=== PATIENT | male | born 1935 | race Caucasian/White ===

== ENCOUNTER 2018-05-05 16:30 | Inpatient (IN) ==
[2018-05-05] MEDS ORDERED: SODIUM CHLORIDE 0.9% 250 ML IV PRN ×2 (16:58→23:23)
[2018-05-05] MEDS ORDERED: SODIUM CHLORIDE 0.9% 1000ML 1,000 ML IV ONE (16:59)
[2018-05-05 17:34] LABS: INR 1.1 (0.9-1.1); Partial Thromboplastin Time 25.5 Seconds (21.0-31.0); Prothrombin Time 11.5 Seconds (9.0-12.0)
[2018-05-05] MEDS: MAGNESIUM SULFATE / D5W 1 GM/100 ML BAG IV SCH ×3 (17:54→22:45)
--- NOTE | 2018-05-05 17:58 | Emergency Department Note ---
Entered by Kalyn Herring acting as a scribe for Delano Marcano MD History of Present Illness General Chief complaint: Abnormal Labs/Diagnostic Testing Stated complaint: ANEMIA Time Seen by Provider: 05/05/18 16:57 Source: patient and family Limitations: no limitations History of Present Illness Provider complaint: abnormal labs Onset (ago): day(s) 4 Maximum Pain Intensity: 8 Associated symptoms: + denies other symptoms (swelling in legs, difficulty breathing, flu-like symptoms), + nausea/vomiting and + other (+diarrhea, + difficulties swallowing); no cough The patient is a 83 white male w/ PMHx of throat cancer, low magnesium, and low hemoglobin who presents to the ED w/ CC of abnormal labs beginning earlier in the day prior to arrival. The patient was seen by Dr. Chavez -Hematology/Oncology earlier in the day for radiation in the neck and tongue and states that Dr. Chavez then referred the patient to the ED for a transfusion. The patient states that he has difficulties swallowing and diarrhea but denies any black or bloody stool. The patient denies any flu-like symptoms, cough, difficulty breathing, or swelling in legs. The patient denies having any recent falls. Per daughter-in -law, the patient has been having memory issues, abnormal gait, pallor, vomiting , and diarrhea that began 4 days prior to arrival. Per [id number], the patient's health has seemed to decline rapidly over the past 4 days. The patient states that he has a PEG tube due to his throat cancer and a pacemaker due to heart failure. The patient denies having any ports or PICC lines. The patient denies taking any blood thinner medication. The patient states that he wears a Fentanyl patch for his pain. The patient states that he receives his chemotherapy through IV. The patient states that his cancer has metastasized to his neck lymphnodes. Home Medications Home Medications Medication Instructions Recorded Confirmed Type acetaminophen 500 mg tablet 1,000 mg PO TID PRN tab 03/10/18 05/05/18 History carvedilol 25 mg tablet 25 mg PO BID 03/10/18 05/05/18 History allopurinol 50 mg PO DAILY 03/25/18 05/05/18 History enalapril maleate 5 mg PO DAILY 03/25/18 05/05/18 History omeprazole 20 mg PO DAILY PRN 03/25/18 05/05/18 History ondansetron HCl 8 mg tablet 8 mg PO TID PRN 04/02/18 05/05/18 History polyethylene glycol 3350 17 17 gm PO DAILY PRN 04/02/18 05/05/18 History gram/dose oral powder oxycodone-acetaminophen 10 mg-325 1 tab PO Q6H PRN 04/06/18 05/05/18 History mg tablet lorazepam 0.5 mg tablet 0.5 mg PO DAILY PRN #30 tab 04/07/18 05/05/18 Rx fentanyl 50 mcg/hr transdermal 1 patch TD Q72H 04/13/18 05/05/18 History patch levothyroxine 125 mcg capsule 125 mcg PO DAILY 04/13/18 05/05/18 History Allergies Allergy/AdvReac Type Severity Reaction Status Date / Time rosuvastatin [From Crestor] AdvReac Unknown Elevated Verified 05/05/18 17:41 liver enzymes Past Med/Surg History Family History Brother Prostate CA Other No significant family history Social History marital status: Current Living Situation: Spouse current occupational status: 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; Other Information That Helps Us Care for You: No Feels Safe at Home: Yes Safety Concerns: Feels Safe At This Time Smoking Status: Former smoker Do You Dip or Chew Tobacco: No Second Hand Exposure: Yes Tobacco Cessation Education Requested by Patient: No Hx Alcohol Use: Yes Alcohol type: hard liquor Alcohol Intake Frequency: holidays/special occasions only Hx Substance Use: No Beliefs That Will Affect Care: None Preferred Language: Malay Communication Ability: Effective 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 and A total of 10 systems reviewed and were otherwise negative Physical Exam Vital Signs Vital Signs - 24 hr 05/05/18 16:48 05/05/18 17:55 05/05/18 19:01 Temperature 37.4 C 37.4 C Temperature Source Oral Oral Sepsis Recent Fever Within 48 Hours No Sepsis New/Unexplained Change in Mental Status No Sepsis Action Taken by Nursing No Action Required Pulse Rate 132 H 78 Pulse Rate [Apical] 83 Pulse Rhythm Regular Pulse Rhythm [Apical] Pulse Strength Normal Pulse Strength [Apical] Respiratory Rate 20 16 20 Respiratory Effort / Characteristics Non-Labored Spontaneous Respiratory Depth Normal Respiratory Pattern Regular Blood Pressure 141/92 H 140/80 Blood Pressure [Left Arm] 148/77 H Blood Pressure Mean 108 100 Blood Pressure Mean [Left Arm] 100 Blood Pressure Position Sitting Blood Pressure Position [Left Arm] Pulse Oximetry 95 94 92 Oxygen Delivery Method Room Air Room Air 05/05/18 19:15 05/05/18 19:45 05/05/18 20:00 Temperature 36.8 C 37.1 C Temperature Source Oral Oral Sepsis Recent Fever Within 48 Hours Sepsis New/Unexplained Change in Mental Status Sepsis Action Taken by Nursing Pulse Rate 79 79 Pulse Rate [Apical] Pulse Rhythm Pulse Rhythm [Apical] Pulse Strength Pulse Strength [Apical] Respiratory Rate 16 16 Respiratory Effort / Characteristics Respiratory Depth Respiratory Pattern Blood Pressure 138/78 139/72 Blood Pressure [Left Arm] Blood Pressure Mean 98 94 Blood Pressure Mean [Left Arm] Blood Pressure Position Blood Pressure Position [Left Arm] Pulse Oximetry 95 95 Oxygen Delivery Method Room Air 05/05/18 20:25 05/05/18 22:26 Temperature 37.4 C 36.9 C Temperature Source Oral Oral Sepsis Recent Fever Within 48 Hours Sepsis New/Unexplained Change in Mental Status Sepsis Action Taken by Nursing Pulse Rate Pulse Rate [Apical] 93 H 93 H Pulse Rhythm Pulse Rhythm [Apical] Regular Regular Pulse Strength Pulse Strength [Apical] Normal Normal Respiratory Rate 18 18 Respiratory Effort / Characteristics Non-Labored Spontaneous Respiratory Depth Normal Normal Respiratory Pattern Regular Blood Pressure Blood Pressure [Left Arm] 118/86 146/65 H Blood Pressure Mean Blood Pressure Mean [Left Arm] 96 92 Blood Pressure Position Blood Pressure Position [Left Arm] Lying Lying Pulse Oximetry 95 96 Oxygen Delivery Method Room Air Room Air GENERAL: Well appearing, well nourished, NAD, non-toxic. EYE EXAM: Normal conjunctiva. PERRL, no anisocoria and EOM's grossly intact w/o pain. OROPHARYNX: No exudate, posterior pharynx is clear, no tonsillar/uvular deviation or swelling. NECK: Supple, no nuchal rigidity, no adenopathy, non-tender. No signs of meningismus. LUNGS: Clear to auscultation bilaterally. Normal chest wall mechanics. HEART: Tachycardic, regular rhythm. ABDOMEN: Abdomen soft, non-tender, normo-active bowel sounds, no masses, no rebound or guarding, central left PEG tube insertion CDI. BACK: No CVA TTP, Fentanyl patch on right upper back. RECTAL: No bright red blood, heme negative. SKIN: No rashes and no bruising. UPPER EXTREMITIES: Upper extremities are grossly normal. LOWER EXTREMITIES: No pitting edema. No calf pain. NEURO EXAM: Awake and alert, moves all 4 extremities on command w/o issue. Course 1701: Past medical records reviewed. The patient was evaluated in room B9, and a complete history and physical examination were performed. 1750: I checked on the patient and the patient consented for a blood transfusion. 1801: I discussed the patient's [facility] who will evaluate the patient for further hospitalization. 1905: I checked on the patient and updated him and his family on his admission. Consultations Consultation #1[facility] Time: 18:02 Administered Medications Carvedilol (Coreg) 25 mg GT BID LUNA Stop: 06/04/18 20:59 Last Admin: 05/05/18 22:44 Dose: 25 mg Magnesium Sulfate/Dextrose (Magnesium Sulfate / D5w) 1 gm in 100 mls @ 100 mls/ hr IV Q1H LUNA Stop: 05/06/18 01:29 Last Admin: 05/06/18 00:20 Dose: 100 mls/hr Infusion: 05/05/18 23:45 Dose: 100 mls/hr Admin: 05/05/18 22:45 Dose: 100 mls/hr Miscellaneous (Fentanyl Patch Check Placement) 1 ea N/A QS LUNA Stop: 06/05/18 00:00 Last Admin: 05/05/18 23:32 Dose: 1 ea Morphine Sulfate (Morphine Sulfate) 4 mg IV Q4H PRN PRN Reason: Pain Stop: 05/19/18 20:48 Last Admin: 05/05/18 23:56 Dose: 4 mg Discontinued Medications Magnesium Sulfate/Dextrose (Magnesium Sulfate / D5w) 1 gm in 100 mls @ 100 mls/ hr IV Q1H LUNA Stop: 05/05/18 18:59 Last Infusion: 05/05/18 20:50 Dose: 0 mls/hr Admin: 05/05/18 18:51 Dose: 100 mls/hr Infusion: 05/05/18 18:50 Dose: 0 mls/hr Admin: 05/05/18 17:54 Dose: 100 mls/hr Sodium Chloride (Nss 1000ml) 1,000 mls @ 999 mls/hr IV .Q1H1M ONE Stop: 05/05/18 17:59 Last Admin: 05/05/18 18:51 Dose: Not Given Sodium Chloride (Nss 1000ml) 1,000 mls @ 80 mls/hr IV .[id number] LUNA Stop: 06/04/18 20:48 Last Admin: 05/05/18 23:16 Dose: Not Given Calcium Gluconate 2,000 mg/ (Sodium Chloride) 70 mls @ 240 mls/hr IV ONE ONE Stop: 05/05/18 21:32 Last Infusion: 05/05/18 23:17 Dose: 0 mls/hr Admin: 05/05/18 22:44 Dose: 240 mls/hr 2 units of pRBCs Medical Decision Making Medical Records Attestation: I reviewed the patient's medical records. Home Medications Current Medication List: was personally reviewed by me Laboratory Data Attestation: I reviewed the patient's lab results. Lab Results 05/05/18 05/05/18 05/05/18 Range/Units 17:19 17:19 18:00 PT 11.5 (9.0-12.0) Seconds INR 1.1 (0.9-1.1) APTT 25.5 (21.0-31.0) Seconds PTT Ratio 1.0 POC Stool Occult Blood Negative (Negative) Blood Type O Positive Antibody Screen NEGATIVE Crossmatch See Detail ECG Data Attestation: I personally reviewed and interpreted this ECG as follows: Indication: weakness Rate (beats per minute): 95 Rhythm: other (AV dual-paced ) Findings: + other (wide QRS) and + LBBB; no acute ischemic change Blood Pressure Blood Pressure Findings: Normal blood pressure MDM Narrative The patient is a 83 white male w/ PMHx of throat cancer, low magnesium, and low hemoglobin who presents to the ED w/ CC of abnormal labs beginning earlier in the day prior to arrival. Differential includes acute coronary syndrome, myocardial infarction, CVA, TIA, anemia, infection, pneumonia, UTI, pyelonephritis, poor nutrition, dehydration, electrolyte disturbance,hypoglycemia. Patient was seen and evaluated the bedside. The patient had been referred given a low hemoglobin. The patient is on cisplatin as IV chemotherapy and does receive radiation treatment secondary to throat cancer which they described as squamous cell carcinoma of the tongue. Patient does complain of dysphasia but no difficulty with swallowing. The patient is not stridulous. Patient is tachycardic. The patient's labs were reviewed and does show hemoglobin less than 7. Most recent was around 8. The patient does have also have significantly low magnesium. The patient did have coags, type and screen, as well as 2 units of irradiated blood products. Patient also did have IV fluids as well as magnesium ordered. Patient did have a rectal exam completed. The patient was consented for blood products. Patient did begin to receive blood. Patient was subsequently admitted to the medicine service for further evaluation and treatment. Impression & Plan Anemia, Hypomagnesemia Critical Care Time I have personally spent greater than 45 minutes of critical care time in the direct management of this patient. This includes bedside care, interpretation of diagnostic studies, and testing, discussion with consultants, patient, and family members, and other required patient management activities. This 45 minutes is in excess of all separately billable procedures. Critical Care Time: Yes Total Critical Care Time: 45 Discharge Plan Visit Data *Final* Discharge Date/Time: 05/05/18 20:00 Chief Complaint: Abnormal Labs/Diagnostic Testing Stated Complaint: ANEMIA ED Provider: Delano Marcano Discharge Problem: Anemia, Hypomagnesemia Patient Disposition: Admitted As Inpatient Discharge Instructions Interventions: ED Discharge Assessment Last Done: 05/05/18 20:00 The scribe's documentation has been prepared under my direction and personally reviewed by me in its entirety. I confirm that the note above accurately reflects all work, treatment, procedures, and medical decision making performed by me.
--- NOTE | 2018-05-05 20:11 | History & Physical Report ---
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 Guerrero and Naseem. - Consult oncology and radiation oncology - Warm saline rinses for mucositis (patient's reports Chlorsept, lidocaine gel, and other treatments all burn and are not helpful) (2) Anemia: Likely due to poor bone marrow response from cancer and chemotherapy. Hemoccult stool was negative in the ED, and patient denies any bright red blood or melenic stools. - 2 units of PRBCs order by the ED - Trend hemoglobin - Monitor volume status as patient has dilated cardiomyopathy though has never had symptoms (3) Malnutrition: Likely due to inability to fully take in tube feeds ( reports feelings of fullness or bloating before able to get in full amount), plus diarrhea from chemo. Normally, he is supposed to take 4 cans/day of NutraSource and 1oz of ProSource - No Carb; however, he can really only stomach about 1/2 to 3/4 of this before feeling too full. Has also not been getting almost any free water because of his fullness. - Replete electrolytes PRN - Residential Leasing Agent consult for tube feeding recs (4) Neutropenia: ANC on admission was 1500, so patient is not neutropenic. Likewise, patient had tempt to 37.4, so was not febrile. But given his immuno-compromised state with ongoing chemo and radiation, I recommended blood cultures, CXR, and UA. Patient declined, but agreed that if he has a fever, we will pursue an infection work-up. - Monitor temp and blood counts (5) Dysphagia: Cannot swallow most of his pills at this point, and even liquids are painful. He often chokes with any liquid. 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 - C. diff testing (7) Hypertension: Has been able to taper off his medications somewhat, likely due to some hypovolemia from his poor oral intake. BP in the ED was 140/70. He has also not been taking his enalapril as much due to trouble swallowing the pill. - Continue Coreg - Hold enalapril as he reports not taking this as often. (8) Hypothyroidism: TSH was recently checked and was suppressed, so Dr. Palomares (PCP) lowered his levothyroxine dose. Now TSH is mildly elevated, but patient admits that he cannot swallow the pill, so has not been taking it. Likely elevated for that reason. - Will continue levothyroxine 125 mcg through PEG tube (9) Congestive heart failure: Per cardiology notes from 2012, he developed dilated cardiomyopathy, possibly pacing-induced(?). However, echo from 11/2012 shows LVEF 60%, moderate LVH. I do not see any further echos in our system. Per notes, he has never had an episode of CHF. - Monitor volume status with all his blood products. (10) Complete heart block: Originally developed complete heart block in 2005 (in [place]!) and had to have pacemaker implanted there. Has had several revisions, mostly recently with Dr. Patricio in 10/2012 with a [employer] Viva Bi-V ICD. - Paced rhythm on EKG - No inpatient needs that I'm aware of (11) DVT prophylaxis: SCDs until not anemic, then consider Lovenox given his [id number] VTE risk given his maligancy History of Present Illness Primary Care Provider: Ricki Palomares MD 83yo M w/ hx of Stage IV squamous cell cancer of the base of the tongue who presents anemia and electrolyte disturbances due to chemotherapy, radiation, and poor PO intake. Per the patient and family, he has been undergoing chemotherapy and radiation with Drs. Guerrero and Naseem respectively for the two months. He was diagnosed with biopsy on 03/02/2018. He has undergone raditation and chemotherapy. Radiation is almost complete with planned completion on . I cannot see any notes from Dr. Guerrero, so I am uncertain when his chemotherapy regimen is. He and family noted that over the last few days (particularly starting on Friday ), he has appeared weaker and more pallid. He also notes more mouth pain and more dysphagia with the ongoing radiation treatment. His reports trouble with the tube feeds, in that he gets full before she can give the full amount. He reports diarrhea and generalized weakness, but denies any fevers or chills, shortness of breath, denies chest pain, denies nausea or vomiting with PEG use, denies dysuria, melena or hematochezia. Allergies Allergy/AdvReac Type Severity Reaction Status Date / Time rosuvastatin [From Crestor] AdvReac Unknown Elevated Verified 05/05/18 17:41 liver enzymes Home Medications Home Medications Medication Instructions Recorded Confirmed Type acetaminophen 500 mg tablet 1,000 mg PO TID PRN tab 03/10/18 05/05/18 History carvedilol 25 mg tablet 25 mg PO BID 03/10/18 05/05/18 History allopurinol 50 mg PO DAILY 03/25/18 05/05/18 History enalapril maleate 5 mg PO DAILY 03/25/18 05/05/18 History omeprazole 20 mg PO DAILY PRN 03/25/18 05/05/18 History ondansetron HCl 8 mg tablet 8 mg PO TID PRN 04/02/18 05/05/18 History polyethylene glycol 3350 17 17 gm PO DAILY PRN 04/02/18 05/05/18 History gram/dose oral powder oxycodone-acetaminophen 10 mg-325 1 tab PO Q6H PRN 04/06/18 05/05/18 History mg tablet lorazepam 0.5 mg tablet 0.5 mg PO DAILY PRN #30 tab 04/07/18 05/05/18 Rx fentanyl 50 mcg/hr transdermal 1 patch TD Q72H 04/13/18 05/05/18 History patch levothyroxine 125 mcg capsule 125 mcg PO DAILY 04/13/18 05/05/18 History Past Med/Surg History Medical History Squamous cell carcinoma of skin (Resolved) Umbilical hernia (Resolved) Congestive heart failure (Chronic) Diabetes 1.5, managed as type 2 (Chronic) Not on meds currently for this GERD (gastroesophageal reflux disease) (Chronic) Gout (Chronic) Heart disease (Chronic) Hypercholesteremia (Chronic) Hypertension (Chronic) Hypothyroidism (Chronic) Presence of combination internal cardiac defibrillator (ICD) and pacemaker ( Chronic) Prostate cancer (Chronic) Pt uncertain if he actually has this diagnosis; Squamous cell carcinoma of tongue (Chronic) Third degree heart block (Chronic) Surgical History H/O umbilical hernia repair (Resolved) History of cataract surgery (Resolved) S/P LASIK surgery of both eyes (Resolved) PEG (percutaneous endoscopic gastrostomy) status Inserted in 02/2018 at [facility] History of tonsillectomy (Resolved) Family History Brother Prostate CA Other No significant family history Social History marital status: Current Living Situation: Spouse 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; Feels Safe at Home: Yes Smoking Status: Former smoker Tobacco Type: cigarettes Cigarettes per Day: 1 pack per week, but then there were times he went months without smoking Second Hand Exposure: No Hx Alcohol Use: No (Quit drinking Dec 2017;10oz gin/day;) Hx Substance Use: No Beliefs That Will Affect Care: None Preferred Language: Romansh caffeine: No during the past year weight has: decreased > 10 lbs Review of Systems Constitutional: no fever, no chills and no sweats Eyes: no diplopia Ear, Nose, Mouth, Throat: + mouth lesions and + sore throat; no ear trauma, no nasal discharge and no dental pain Respiratory: no cough, no chest congestion and no dyspnea Cardiovascular: no chest pain, no dyspnea on exertion, no palpitations and no syncope Gastrointestinal: no abdominal pain, no belching, no constipation, no diarrhea/ loose stools, no blood in stools and no melena Musculoskeletal: no back pain, no joint pain and no muscle weakness Integumentary: no rash, no skin ulcer and no erythema Neurologic: no generalized weakness, no loss of sensation, no numbness and no paresthesia Psychiatric: no depression and no anxiety Endocrine: no fatigue, no polydipsia and no polyphagia Physical Exam 2 Vital Signs (Past 24 Hours): Last Vital Signs Temp 37.1 C 05/05/18 19:45 Pulse 79 05/05/18 19:45 Resp 16 05/05/18 19:45 BP 139/72 05/05/18 19:45 Pulse Ox 95 05/05/18 19:45 Constitutional: WD/WN, vitals as above Eyes: EOM intact bilaterally; no conjunctival abnormality ENMT: external ear and nose normal, oropharynx normal Neck: trachea midline, no thyromegaly normal visual inspection and + neck tender Reddened skin Respiratory: normal respiratory effort, lungs clear to auscultation no respiratory distress Cardiovascular: RRR, no murmur, no edema Gastrointestinal (Abdomen): Inspection/Auscultation: abdomen normal to inspection; abdomen not distended Musculoskeletal: no cyanosis or clubbing, extremities motor strength 5/5 Skin: no rashes, warm and dry Neurologic: moves all extremities and awake Psychiatric: Orientation: alert, oriented to person and cooperative
[2018-05-05] MEDS ORDERED: LORazepam 0.5 MG TAB PO PRN (20:49)
[2018-05-05] MEDS ORDERED: ACETAMINOPHEN 1,000 MG/100 ML VIAL IV PRN (20:49)
[2018-05-05] MEDS ORDERED: MoRPHine SULFATE 4 MG/ML 1 ML CARP\\VIAL IV PRN (20:49)
[2018-05-05] MEDS ORDERED: SODIUM CHLORIDE 0.9% 1000ML 1,000 ML IV SCH (20:49)
[2018-05-05] MEDS ORDERED: fentaNYL 50 MCG/HR TDSY TD SCH (21:00)
[2018-05-05] MEDS ORDERED: CALCIUM GLUCONATE 10% 2,000 MG in SODIUM CHLORIDE 0.9% 50 ML IV ONE (21:15)
[2018-05-05] MEDS: CARVEDILOL 25 MG TAB GT SCH (22:44)
[2018-05-05] MEDS: CHECK FENTANYL PATCH PLACEMENT SCH (23:32)
[2018-05-06] MEDS: MAGNESIUM SULFATE / D5W 1 GM/100 ML BAG IV SCH ×3 (00:20→02:22)
[2018-05-06] MEDS: LEVOTHYROXINE SODIUM 125 MCG TABLET PO SCH (06:18)
[2018-05-06] MEDS: RANITIDINE HCL SYRUP 150 MG/10 ML UDC GT SCH (07:56)
[2018-05-06] MEDS: CARVEDILOL 25 MG TAB GT SCH ×2 (07:56→19:30)
[2018-05-06 07:58] LABS: Hematocrit (blood only) 22.6 % (42-52); Hemoglobin 7.8 g/dL (14.0-18.0); Mean Corpuscular Hgb Conc 34.5 g/dL (32-36); Mean Corpuscular Volume 88.3 fL (80-100); RDW Coefficient of Variation 14.8 % (11.5-14.5); RDW Standard Deviation 46.1 fL (36.4-46.3); Red Blood Count 2.56 M/uL (4.7-6.1); White Blood Count 1.84 K/uL (4.8-10.8)
[2018-05-06] MEDS: CHECK FENTANYL PATCH PLACEMENT SCH ×2 (07:58→17:51)
--- NOTE | 2018-05-06 08:08 | Radiation Oncology Progress Nt ---
Date of Service May 06, 2018 Assessment & Plan (1) Head and neck cancer: Assessment: Mr. Lyles is an 83-year-old gentleman who presents with locally advanced head and neck cancer who is currently undergoing treatment with chemotherapy and radiation therapy. He has completed 27 of 33 fractions of radiation therapy. He is also currently receiving chemotherapy underneath the supervision of Dr. Robin Guerrero. Unfortunately, the patient has had difficulty tolerating radiation therapy and chemotherapy and has developed dehydration and anemia and malnutrition and the patient was admitted to the hospital for further care due to his acute state. We have been asked to evaluate the patient regarding continuation of radiation therapy. Plan/Recommendations: I discussed the case with the primary hospital team. We agreed to hold the patient for radiation therapy tomorrow and bring him down tomorrow for treatment assuming his overall status improves. I will defer chemotherapy recommendations to medical oncology. With respect to his dysphagia, I would recommend continuation of pain management with pain medications via feeding tube/IV access. Magic mouthwash may also be considered to help the patient with dysphagia as well as Carafate. Continue to use Aquaphor daily patient's neck bilaterally to help keep the skin moisturized. Please call our department for any further questions or concerns regarding radiation oncology side effect management. Please call us with any further questions or concerns. Supervising Physician Co-Signing Physician Notes I spent 30 minutes for this consultation, which included obtaining clinical information, performing a physical exam, recommending a plan of action and answering questions. Greater than 50% of the time spent was direct face to face interaction with the patient. Subjective Mr. Lyles is a 83-year-old gentleman that is well-known to our service. He is currently undergoing chemotherapy and radiation therapy for head and neck cancer. He has received 27 fractions out of a planned 33 fractions. He is also receiving concurrent cisplatin chemotherapy underneath the supervision of Dr. Robin Guerrero. Yesterday, the patient was doing poorly and was having difficulty with weakness and poor oral intake. The patient did undergo radiation therapy and then was evaluated by medical oncology and the recommendation was to send the patient to the emergency department. The patient did have blood work including a CBC which revealed leukopenia and anemia. Since admission, the patient has received IV hydration is also had 2 units of packed red blood cells transfused in the emergency room. We have been asked to evaluate the patient regarding radiation therapy. Currently, the patient continues to still suffer from overall fatigue and weakness. He also complains of dysphagia and odynophagia. He currently is on a fentanyl patch and also has been taking Percocet 10/325 mg PO every 6 hours as needed for pain. Physical Exam 2 Vital Signs (Past 24 Hours): Last Vital Signs Temp 36.9 C 05/06/18 02:55 Pulse 70 05/06/18 02:55 Resp 18 05/06/18 02:55 BP 128/60 05/06/18 02:55 Pulse Ox 95 05/06/18 02:55 Constitutional: + ill appearing and + disheveled Eyes: PERRL, conjunctivae normal, anicteric sclerae ENMT: external ear and nose normal, oropharynx normal Neck: Dry desquamation noted bilaterally. Psychiatric: A+Ox3, euthymic affect
[2018-05-06 08:24] LABS: Dohle Bodies 1+; Immature Granulocytes # (auto) 0.01 K/uL (0.00-0.02); Immature Granulocytes % (auto) 0.5 %; Lymphocytes # (auto) 0.28 K/uL (1.2-3.4); Lymphocytes % (auto) 15.2 %; Monocytes # (auto) 0.19 K/uL (0.11-0.59); Monocytes % (auto) 10.3 %; Neutrophils # (auto) 1.36 K/uL (1.4-6.5); Platelet Count 94 K/uL (130-400); Toxic Granulation 1+
[2018-05-06 08:37] LABS: BUN Creatinine Ratio 35.7 (10-20); Calcium 6.9 mg/dl (8.5-10.1); Creatinine Clr Calc Pharmacy 68.7 ml/min; Est GFR (African American) 77.7; Magnesium 1.8 mg/dl (1.8-2.4); Phosphorus 3.3 mg/dl (2.5-4.9); Potassium 3.9 mmol/L (3.5-5.1)
[2018-05-06] MEDS ORDERED: SODIUM CHLORIDE 0.9% 250 ML IV PRN (11:36)
[2018-05-06] MEDS ORDERED: Nursing to Pharmacy Communication ONE (15:14)
--- NOTE | 2018-05-06 15:27 | Hospitalist Progress Note ---
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 Guerrero and Dr. Gusman - Planning on continuing radiation therapy today - only approx 7 more sessions planned - Only one chemotherapy session left - May continues warm saline rinses for his mucositis - reports this is about the only thing that does not burn - can consider Carafate rinses to see if that may help and patient would like to consider this -- Have tried Magic mouthwash in the past and chloraseptic but this gave a burning sensation) - Can continue to adjust pain regimen - continue Fentanyl 50 mcg Q72H (possibly can increase this dose and can discuss); Morphine IV PRN - Consult oncology and radiation oncology - did discuss with Dr. Gusman this morning and plan to continue radiation today Present on Admission?: Yes (2) Anemia: - Pancytopenia likely due to bone marrow suppression related to cancer/ chemo - Stool negative for blood in the ED and no reports of melena/BRBPR - no active signs of bleeding - Transfused 2 units PRBCs and will transfuse an additional 2 units this afternoon - Baseline around 9-11 but has had a gradual decline since initiation of cancer treatment which is to be expected - does have weekly labs prior to his chemotherapy regimen - Continue to monitor H&H and monitor fluid status given H/O dilated cardiomyopathy Present on Admission?: Yes (3) Malnutrition: - Due to inability to fully tolerate tube feeds (fullness/bloating/early satiety) - Current regimen is Nutren 2.0 with 350 mL BID with 1 oz nocarb prosource - bolus in AM prior to radiation then again around 1500 and also has 90 mL free water flushes x 5 daily - Monitor labs and replete electrolytes PRN - Cant Hooker consulted - discussed with Felicitas - plan to continue home feeds but consideration for night feeds to reduce boluses and may help with early satiety. Can also consider Reglan to help with motility and will rediscuss with patient and family Present on Admission?: Yes (4) Neutropenia: - ANC on admission was 1500 and currently at 1360 and will monitor closely - he is immunocompromised due to chemo/radiation and remains afebrile - Currently no signs of infection but if would become febrile will pursue further infectious work-up Present on Admission?: Yes (5) Dysphagia: - Ongoing issue that has worsened more specifically on Friday - difficulty with pills and liquids - States he feels a lot of regurgitation when he swallows anything - [facility] evaluation - evaluation was discussed between [facility] and Dr. Grimaldo - recommendations for remaining NPO until completing radiation therapy and to pursue video swallow before adding oral intake; can continue sips and chips as tolerated Present on Admission?: Yes (6) Diarrhea: - Has been consistent while undergoing chemotherapy - Can R/O C. diff if continues and could consider further stool studies however likely due to chemotherapy and maybe some related to his tube feedings Present on Admission?: Yes (7) Hypertension: - Has tapered off some medications - having intermittent highs which some could be pain response - Doesn't always take his Enalapril due to swallowing issues - Will continue Carvedilol 25 mg BID and holding Enalapril Present on Admission?: Yes (8) Hypothyroidism: - TSH was previously suppressed and his Synthroid was reduced - now TSH is elevated but admits to not always taking due to his swallowing difficulty and likely the reason for elevations - Will continue home dose of Levothyroxine 125 mcg daily through PEG Present on Admission?: Yes (9) Congestive heart failure: - Notes from 2013 with dilated cardiomyopathy - possibly pacer-induced? - Echo (2013) - EF 60%; moderate LVH - Denies having issues with fluid retention or CHF exacerbations; will monitor volume status Present on Admission?: Yes (10) Complete heart block: - Initially diagnosed in 2005 - had a pacer placed in [facility] and since had revisions (last with Dr. Contreras in 2012) has a [employer] Viva Bi-V ICD - Remains paced on monitor Present on Admission?: Yes (11) DVT prophylaxis: Will continue SCDs today; Will reassess labs in AM as he is thrombocytopenic and getting further blood and can consider Lovenox - no active source of bleeding at this time Disposition: Await clinical improvement and laboratory stabilization Subjective Reports that he is feeling ok. Biggest issue is pain of the mouth especially with swallowing. Had a long discussion about possible implementation of Reglan to help with motility as well as may be trying some Carafate that could be swished in the mouth to help with the mucositis. His energy levels are slightly improved since admission. He is currently receiving another 2 units of PRBCs. Patient would like to go ahead and continue his radiation therapy today. At this current time we will continue his current home tube feedings. He was seen and evaluated by [facility] who recommend strict n.p.o. at this time. Recommendations to consider overnight feeds to help reduce bolus feeding and early satiety. Constitutional: + fatigue; no fever and no chills Eyes: no worsening vision Ear, Nose, Mouth, Throat: + mouth lesions, + sore throat, + hoarseness, + dysphagia and + pain with swallowing Respiratory: no cough and no dyspnea Cardiovascular: no chest pain, no palpitations, no lightheadedness and no edema Gastrointestinal: + bloating, + early satiety and + diarrhea/loose stools; no abdominal pain, no nausea, no vomiting, no change in bowel habits, no constipation, no blood in stools and no melena Genitourinary (Male): no dysuria Integumentary: no rash Physical Exam 2 Vital Signs (Past 24 Hours): Last Vital Signs Temp 36.9 C 05/06/18 15:15 Pulse 74 05/06/18 15:15 Resp 16 05/06/18 15:15 BP 151/80 H 05/06/18 15:15 Pulse Ox 96 05/06/18 15:15 Constitutional: well developed, well nourished and + ill appearing Eyes: + anicteric sclerae ENMT: Ears: no hearing impairment Mouth: + oral mucosal abnormality ( petechial-like spots of posterior pharynx with small ulcer-like lesions of tongue so current signs of thrush) Throat: uvula midline Neck: trachea midline Respiratory: normal respiratory effort, lungs clear to auscultation Cardiovascular: Rate/Rhythm: regular rate and regular rhythm Gastrointestinal (Abdomen): Inspection/Auscultation: normal bowel sounds Percussion/Palpation: abdomen soft; abdomen nontender Musculoskeletal: Head/Neck/Chest: normocephalic, head atraumatic and neck supple Skin: no rashes, warm and dry Neurologic: moves all extremities Psychiatric: A+Ox3, euthymic affect
[2018-05-06] MEDS ORDERED: SUCRALFATE 1 GM/10 ML UDC PO PRN (16:19)
[2018-05-06] MEDS: [UNRECOGNIZED DRUG - REMARK] PO SCH (17:51)
[2018-05-06] MEDS: ONDANSETRON INJ 2 MG/ML 2 ML VIAL IV PRN (18:16)
[2018-05-07] MEDS: CHECK FENTANYL PATCH PLACEMENT SCH ×3 (00:17→15:55)
[2018-05-07] MEDS: LEVOTHYROXINE SODIUM 125 MCG TABLET PO SCH (06:13)
[2018-05-07] MEDS: ONDANSETRON INJ 2 MG/ML 2 ML VIAL IV PRN (07:59)
[2018-05-07] MEDS: RANITIDINE HCL SYRUP 150 MG/10 ML UDC GT SCH (09:27)
[2018-05-07] MEDS: CARVEDILOL 25 MG TAB GT SCH (09:27)
[2018-05-07 10:22] LABS: Hematocrit (blood only) 27.4 % (42-52); Hemoglobin 9.4 g/dL (14.0-18.0); Mean Corpuscular Hgb Conc 34.3 g/dL (32-36); Mean Corpuscular Volume 88.7 fL (80-100); RDW Coefficient of Variation 14.8 % (11.5-14.5); RDW Standard Deviation 46.5 fL (36.4-46.3); Red Blood Count 3.09 M/uL (4.7-6.1); White Blood Count 1.66 K/uL (4.8-10.8)
[2018-05-07 10:30] LABS: Mean Platelet Volume 9.1 fL (7.4-10.4); Platelet Count 91 K/uL (130-400)
[2018-05-07 10:49] LABS: Dohle Bodies 1+; Eosinophils # (auto) 0.01 K/uL (0-0.5); Eosinophils % (auto) 0.6 %; Immature Granulocytes # (auto) 0.01 K/uL (0.00-0.02); Immature Granulocytes % (auto) 0.6 %; Monocytes # (auto) 0.26 K/uL (0.11-0.59); Monocytes % (auto) 15.7 %; Neutrophils # (auto) 1.18 K/uL (1.4-6.5); Neutrophils % (auto) 71.1 %; Toxic Granulation 1+
[2018-05-07] MEDS ORDERED: fentaNYL 50 MCG/HR TDSY TD SCH (11:00)
[2018-05-07 11:04] LABS: BUN Creatinine Ratio 34.3 (10-20); Calcium 7.1 mg/dl (8.5-10.1); Creatinine Clr Calc Pharmacy 69.7 ml/min; Est GFR (African American) 78.6; Est GFR (Non-African American) 67.8; Magnesium 1.1 mg/dl (1.8-2.4); Potassium 3.5 mmol/L (3.5-5.1)
[2018-05-07] MEDS: [UNRECOGNIZED DRUG - REMARK] PO SCH (12:08)
[2018-05-07] MEDS: MAGNESIUM SULFATE / D5W 1 GM/100 ML BAG IV SCH ×2 (13:16→14:25)
[2018-05-07 14:30] LABS: Hematocrit (blood only) 26.8 % (42-52); Mean Corpuscular Hgb Conc 33.6 g/dL (32-36); Mean Corpuscular Volume 90.2 fL (80-100); RDW Coefficient of Variation 14.9 % (11.5-14.5); RDW Standard Deviation 48.3 fL (36.4-46.3); Red Blood Count 2.97 M/uL (4.7-6.1); White Blood Count 1.59 K/uL (4.8-10.8)
[2018-05-07 14:43] LABS: Mean Platelet Volume 9.1 fL (7.4-10.4); Platelet Count 87 K/uL (130-400)
[2018-05-07 14:46] LABS: BUN Creatinine Ratio 34.3 (10-20); Calcium 6.9 mg/dl (8.5-10.1); Creatinine Clr Calc Pharmacy 68.4 ml/min; Est GFR (African American) 76.8; Est GFR (Non-African American) 66.3; Magnesium 1.2 mg/dl (1.8-2.4); Potassium 3.5 mmol/L (3.5-5.1)
[2018-05-07 15:25] VITALS: PULSE 88; TEMP 98.1; O2SAT 97
--- NOTE | 2018-05-07 15:41 | Oncology Consultation ---
Date of Consultation May 07, 2018 Assessment & Plan (1) Head and neck cancer: Mr. Lyles has been struggling at home. Most of his symptoms are from usual toxicities of concurrent chemoradiation for head and neck cancers, exacerbated by his pre-treatment weight loss related to his tumor symptoms. He is not tolerating tube feeds well and I might consider nutrition evaluation to discuss changes in his feeds, such as continuous overnight feeds. He will likely get a bit worse before he starts to improve, so finding a way to get him more reliable nutrition is critical for the next few weeks to months. We will also likely continue with frequent hydration visits in the clinic until he starts getting stronger. Present on Admission?: Yes History of Present Illness Attending Physician: Henry Grimaldo, DO History of Present Illness Mr. Lyles is an 83 year old man with a history of complete heart block and a base of tongue squamous cell carcinoma. He came to attention in January with difficulty swallowing and a 35 lb weight loss. Imaging revealed a large FDG- avid mass at the base of his tongue, along with bilateral avid cervical lymph nodes. He underwent a biopsy 02/18/18 that revealed a poorly differentiated squamous cell caricnoma. He had a PEG tube placed and began definitive-intent concurrent chemoradiation with weekly cisplatin on 03/25/18. Since that time, he has experienced severe dysphagia and poor oral intake. He has lost around 12 lb from his pre-treatment weight. He has also been getting supplemental hydration weekly with chemo, plus another time per week. In the last week, he has required three visits for hydration. Dr. Guerrero saw him briefly on the day of admission, where he looked generally ill and very weak. He was found to be profoundly hypomagnesemic and dehydrated and was admitted to [facility]. He has not been keeping up with his tube feeds. His prescribed regimen is 5 cans per day, but he has only tolerated 2. He gets bloated and uncomfortable when he takes the feeds and has trouble lying down. He felt better after some IV hydration and magnesium repletion. He is due to finish his radiation this week. Allergies Allergy/AdvReac Type Severity Reaction Status Date / Time rosuvastatin [From Crestor] AdvReac Unknown Elevated Verified 05/05/18 17:41 liver enzymes Home Medications Home Medications Medication Instructions Recorded Confirmed Type acetaminophen 500 mg tablet 1,000 mg PO TID PRN tab 03/10/18 05/05/18 History carvedilol 25 mg tablet 25 mg PO BID 03/10/18 05/05/18 History allopurinol 50 mg PO DAILY 03/25/18 05/05/18 History enalapril maleate 5 mg PO DAILY 03/25/18 05/05/18 History omeprazole 20 mg PO DAILY PRN 03/25/18 05/05/18 History ondansetron HCl 8 mg tablet 8 mg PO TID PRN 04/02/18 05/05/18 History polyethylene glycol 3350 17 17 gm PO DAILY PRN 04/02/18 05/05/18 History gram/dose oral powder oxycodone-acetaminophen 10 mg-325 1 tab PO Q6H PRN 04/06/18 05/05/18 History mg tablet lorazepam 0.5 mg tablet 0.5 mg PO DAILY PRN #30 tab 04/07/18 05/05/18 Rx fentanyl 50 mcg/hr transdermal 1 patch TD Q72H 04/13/18 05/05/18 History patch levothyroxine 125 mcg capsule 125 mcg PO DAILY 04/13/18 05/05/18 History Patient History Medical History Squamous cell carcinoma of skin (Resolved) Umbilical hernia (Resolved) Congestive heart failure (Chronic) Diabetes 1.5, managed as type 2 (Chronic) Not on meds currently for this GERD (gastroesophageal reflux disease) (Chronic) Gout (Chronic) Heart disease (Chronic) Hypercholesteremia (Chronic) Hypertension (Chronic) Hypothyroidism (Chronic) Presence of combination internal cardiac defibrillator (ICD) and pacemaker ( Chronic) Prostate cancer (Chronic) Pt uncertain if he actually has this diagnosis; Squamous cell carcinoma of tongue (Chronic) Third degree heart block (Chronic) Surgical History H/O umbilical hernia repair (Resolved) History of cataract surgery (Resolved) S/P LASIK surgery of both eyes (Resolved) PEG (percutaneous endoscopic gastrostomy) status Inserted in 02/2018 at [facility] History of tonsillectomy (Resolved) Family History Brother Prostate CA Other No significant family history Social History marital status: Current Living Situation: Spouse current occupational status: retired current occupation: [employer]; Other Information That Helps Us Care for You: No Feels Safe at Home: Yes Safety Concerns: Feels Safe At This Time Smoking Status: Former smoker Do You Dip or Chew Tobacco: No Second Hand Exposure: Yes Tobacco Cessation Education Requested by Patient: No Hx Alcohol Use: Yes Alcohol type: hard liquor Alcohol Intake Frequency: holidays/special occasions only Hx Substance Use: No Beliefs That Will Affect Care: None Communication Ability: Effective caffeine: No during the past year weight has: decreased > 10 lbs Review of Systems Constitutional: + fatigue, + weakness and + weight loss Ear, Nose, Mouth, Throat: as per Subjective / HPI Respiratory: no cough and no dyspnea Cardiovascular: no chest pain and no dyspnea on exertion Gastrointestinal: + nausea and + dysphagia; no diarrhea/loose stools Neurologic: no localized weakness and no headache(s) Hematologic / Lymphatic: no easy bleeding and no night sweats Physical Exam 2 Vital Signs (Past 24 Hours): Last Vital Signs Temp 36.7 C 05/07/18 15:24 Pulse 88 05/07/18 15:24 Resp 16 05/07/18 15:24 BP 143/71 H 05/07/18 15:24 Pulse Ox 97 05/07/18 15:24 Constitutional: + ill appearing and comfortable; no acute distress Eyes: + anicteric sclerae and EOM intact bilaterally Neck: Changes in his skin consistent with his current radiation therapy Respiratory: normal respiratory effort, lungs clear to auscultation Cardiovascular: RRR, no murmur, no edema Gastrointestinal (Abdomen): normal bowel sounds, soft, nontender, no hepatosplenomegaly Lymphatic: no cervical or axillary lymphadenopathy Results & Data Laboratory Results Abnormal lab results 05/05/18 05/06/18 05/07/18 Range/Units 17:19 16:26 07:10 WBC (4.8-10.8) K/uL RBC (4.7-6.1) M/uL Hgb (14.0-18.0) g/dL Hct (42-52) % RDW Std Deviation (36.4-46.3) fL RDW Coeff of Tonia (11.5-14.5) % Plt Count (130-400) K/uL Neut # (Auto) (1.4-6.5) K/uL Lymph # (Auto) (1.2-3.4) K/uL BUN (7-18) mg/dl BUN/Creatinine Ratio (10-20) Glucose (70-99) mg/dl POC Glucose 167 H 106 H (70-99) Calcium (8.5-10.1) mg/dl Magnesium (1.8-2.4) mg/dl Crossmatch See Detail 05/07/18 05/07/18 05/07/18 Range/Units 10:06 10:06 11:31 WBC 1.66 L (4.8-10.8) K/uL RBC 3.09 L (4.7-6.1) M/uL Hgb 9.4 L (14.0-18.0) g/dL Hct 27.4 L (42-52) % RDW Std Deviation 46.5 H (36.4-46.3) fL RDW Coeff of Tonia 14.8 H (11.5-14.5) % Plt Count 91 L (130-400) K/uL Neut # (Auto) 1.18 L (1.4-6.5) K/uL Lymph # (Auto) 0.20 L (1.2-3.4) K/uL BUN 35 H (7-18) mg/dl BUN/Creatinine Ratio 34.3 H (10-20) Glucose 109 H (70-99) mg/dl POC Glucose 144 H (70-99) Calcium 7.1 L (8.5-10.1) mg/dl Magnesium 1.1 L (1.8-2.4) mg/dl Crossmatch 05/07/18 05/07/18 Range/Units 13:55 13:55 WBC 1.59 L (4.8-10.8) K/uL RBC 2.97 L (4.7-6.1) M/uL Hgb 9.0 L (14.0-18.0) g/dL Hct 26.8 L (42-52) % RDW Std Deviation 48.3 H (36.4-46.3) fL RDW Coeff of Tonia 14.9 H (11.5-14.5) % Plt Count 87 L (130-400) K/uL Neut # (Auto) (1.4-6.5) K/uL Lymph # (Auto) (1.2-3.4) K/uL BUN 36 H (7-18) mg/dl BUN/Creatinine Ratio 34.3 H (10-20) Glucose 129 H (70-99) mg/dl POC Glucose (70-99) Calcium 6.9 L (8.5-10.1) mg/dl Magnesium 1.2 L (1.8-2.4) mg/dl Crossmatch
[2018-05-07 16:08] VITALS: BP 152/75
[2018-05-07] MEDS ORDERED: METOCLOPRAMIDE HCL 10 MG TABLET PO SCH (16:45)
--- NOTE | 2018-05-07 19:22 | Discharge Summary ---
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 Per the patient and family, he has been undergoing chemotherapy and radiation with Drs. Guerrero and Naseem respectively for the two months. He was diagnosed with biopsy on 03/02/2018. He has undergone raditation and chemotherapy. Radiation is almost complete with planned completion on . I cannot see any notes from Dr. Guerrero, so I am uncertain when his chemotherapy regimen is. He and family noted that over the last few days (particularly starting on Friday ), he has appeared weaker and more pallid. He also notes more mouth pain and more dysphagia with the ongoing radiation treatment. His reports trouble with the tube feeds, in that he gets full before she can give the full amount. He reports diarrhea and generalized weakness, but denies any fevers or chills, shortness of breath, denies chest pain, denies nausea or vomiting with PEG use, denies dysuria, melena or hematochezia. Principal Diagnosis Chemotherapy Induced Pancytopenia Discharge Exam Constitutional well developed, well nourished and + ill appearing Eyes + anicteric sclerae ENMT Ears: no hearing impairment Mouth: + oral mucosal abnormality (petechial-like spots of posterior pharynx with small ulcer-like lesions of tongue so current signs of thrush) Throat: uvula midline Neck trachea midline Respiratory normal respiratory effort, lungs clear to auscultation Cardiovascular Rate/Rhythm: regular rate and regular rhythm Gastrointestinal (Abdomen) Inspection/Auscultation: normal bowel sounds Percussion/Palpation: abdomen soft; abdomen nontender Musculoskeletal Head/Neck/Chest: normocephalic, head atraumatic and neck supple Skin no rashes, warm and dry Neurologic moves all extremities Psychiatric A+Ox3, euthymic affect Discharge Data Allergies Allergy/AdvReac Type Severity Reaction Status Date / Time rosuvastatin [From Crestor] AdvReac Unknown Elevated Verified 05/05/18 17:41 liver enzymes Consultations 05/05/18 17:58 ED Decision to Admit Stat 05/05/18 20:49 Consult Oncology Routine Consult Radiation Oncology Routine Hospital Course (1) Squamous cell carcinoma of tongue: - Active treatment with chemotherapy/radiation for Stage IV squamous cell carcinoma of the posterior tongue - follows with Dr. Guerrero and Dr. Gusman - Continued radiation therapy in-house - has approx. 4 more sessions - Only one chemotherapy session left - May continues warm saline rinses for his mucositis; trial of carafate PRN but patient states this does burn slightly as well - Continue F/U with Dr. Gusman and Dr. Chavez (2) Anemia: - Pancytopenia likely due to bone marrow suppression related to cancer/ chemo; slightly neutropenic with counts at 1.1 - Stool negative for blood in the ED and no reports of melena/BRBPR - no active signs of bleeding - Transfused 4 units PRBCs and Hgb stable around 9 - Baseline around 9-11 but has had a gradual decline since initiation of cancer treatment which is to be expected - does have weekly labs prior to his chemotherapy regimen and provided Rx for repeat testing (3) Malnutrition: - Due to inability to fully tolerate tube feeds (fullness/bloating/early satiety) - Current regimen is Nutren 2.0 with 350 mL BID with 1 oz nocarb prosource - bolus in AM prior to radiation then again around 1500 and also has 90 mL free water flushes x 5 daily - Will remain completely NPO until cleared by video swallow but with discussion with patient and family the plan will be to continue feeds as is until completely radiation as this impacts their time. After radiation complete can do more frequent feeds of smaller amounts to allow easier tolerability. Patient expresses he finally has been sleeping well at night and would like to avoid night feeds and will respect that - Advised of the recommendations to have the goal of 1000 mL a day of feeds and 1100 mL if possible - Trial of Reglan 10 mg 15-20 minutes prior to bolus feeds to see if this assists with motility (4) Neutropenia: - ANC on admission was 1500 and currently at 1100 and will monitor closely - he is immunocompromised due to chemo/radiation and remains afebrile - Currently no signs of infection (5) Dysphagia: - Ongoing issue that has worsened more specifically on Friday - difficulty with pills and liquids - States he feels a lot of regurgitation when he swallows anything - 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 -- recommendations for remaining NPO until completing radiation therapy and to pursue video swallow before adding oral intake; can continue sips and chips as tolerated (6) Diarrhea: - Has been consistent while undergoing chemotherapy (7) Hypertension: - Has tapered off some medications - having intermittent highs which some could be pain response - Doesn't always take his Enalapril due to swallowing issues - Continue Carvedilol 25 mg BID and Enalapril 5 mg daily through feeding tube (8) Hypothyroidism: - TSH was previously suppressed and his Synthroid was reduced - now TSH is elevated but admits to not always taking due to his swallowing difficulty and likely the reason for elevations - Will continue home dose of Levothyroxine 125 mcg daily through PEG (9) Congestive heart failure: - Notes from 2013 with dilated cardiomyopathy - possibly pacer-induced? - Echo (2013) - EF 60%; moderate LVH - Denies having issues with fluid retention or CHF exacerbations (10) Complete heart block: - Initially diagnosed in 2005 - had a pacer placed in [facility] and since had revisions (last with Dr. Contreras in 2012) has a [employer] Bi-V ICD - Remains paced on monitor Total Time Total Time Spent Total Time Spent (In Minutes): Greater than 30 minutes Discharge Plan Discharge Items Patient Disposition: Home - Home Health Services Reason For Visit: ANEMIA,LOW ELECTROLYTES Discharge Diagnosis: Anemia due to Chemotherapy Discharge Goals: Decrease discomfort, Improve nutritional status and Prevent disease Activity: Resume your previous activity Non-emergency contact: Primary Care Provider Call non-emergency contact if: you have any medication questions, your symptoms worsen and you have a fever Diet: Nothing by mouth Addtl Provider Instructions: Oral Cancer: - Please continue your radiation treatments as previously arranged to complete your remaining treatments - Would recommend calling Dr. Chavez's office to see when he would like to follow- up with you in regards to your last chemotherapy. It is common when blood counts are lower to hold this type of treatment temporarily. - Will give you a prescription for blood work to get on 05/08 and again on 05/11 that can also be sent to Dr. Chavez to help guide when your last treatment can be given. - Continue the warm saline rinses as this seems to help the most. Can give a prescription for the oral carafate to use but it seems like this burned some too so you can disregard this if not tolerated. Sometimes insurances will not cover the liquid form just to make you aware but can possibly get an authorization for it and your family doctor can help with that. - Continue your Fentanyl patch as previously prescribed and can be adjusted per recommendations of your oncologist. Anemia: - You have a pancytopenia which means your white blood cells, hemoglobin, and platelets (clotting factor) is low which is very common with chemotherapy. - It seems since you started your treatments your counts have come down which is normal as these medications can cause some bone marrow suppression. - As you finish treatment, the counts will start to improve. - Your family doctor discussed some medicines that can stimulate your blood counts (Procrit for your red blood cells and Neulasta for your white blood cells ) -- Did discuss with the solar installation foreman dry wall installations mechanic/oncologist that this medications are not indicated at this time but would recommend to discuss with your oncologist as it may be beneficial with your next treatment. - Sometimes with chemotherapy we do see each treatment causing a little bit more effects on the blood counts like you experienced this time. This is sometime due to an accumulation effect. This may mean we need to wait a little longer than normal to do the next dose but your oncologist can weigh in on this more - The repeat blood work hopefully will show your blood counts improving. There is a chance the counts can still drop and may need more blood products but right now your counts are remaining stable on repeat labs. -- We do no see signs of active bleeding and your stool did not show blood which is great. However, always recommend to watch for black colored stool or bright red blood. - Your neutrophils are dropping some too. We like to see these about 1.4 which you are at 1.1 right now. With this we would just recommend to keep those that are sick away for a little while and avoid eating anything raw or undercooked. Neutrophils are important for fighting off infections so we do want to see this come up as well. This will be checked with the lab script we will give. Nutrition: - We have a few recommendations in regards to how to improve this. Hopefully as your treatments end and we can get you back to eating regularly this will help - For now, recommend to continue to do you feeds as you have been doing. If days allow you could do small boluses more frequently in the day to help reduce bloating and early satiety. - We will give a prescription for Reglan. This is actually a nausea medication that we use for people who have gastric slowing as it can help promote motility. - Recommend to take Reglan 10 mg 15-20 minutes before your bolus feeds and a dose prior to bed. We can do this as a trial and see if it works. If not this can be stopped - As you finish your radiation and chemotherapy these are some further recommendations given. For now the recommendation is NOTHING BY MOUTH due to the regurgitation and irritation you are having. Our speech language pathologist is recommending to have a formal video swallow before resuming normal feeding. Your family doctor can help arrange this. In the meantime can use some ice chips or little sips of water - NUTRITION GOALS -- Work towards 333 mL three times a day and continue the prosource. This will give approximately 95% of goal caloric and nutritional intake -- If you can get up to 1100 mL that would be even better -- Especially if days allow, have smaller more frequent feeds may help with tolerance Medications: - We did review your medications and unfortunately only a couple have a liquid option but most are off the market for use. - However, the Reglan does come in a liquid. Zantac comes in a syrup as well which can be used alone or with omeprazole. Sometimes scheduling acid reflux medications can help but may use this as needed if you would prefer Hypothyroid: - Your thyroid hormone is high which means that your thyroid is underactive but this is likely due to not being able to take the synthroid due to swallowing - Did not make any dosing adjustments to this but would recommend repeat thyroid check in about 6 weeks to see if further medication dosings need made Prescriptions: New metoclopramide HCl 5 mg/5 mL solution 10 mg Feeding Tube DIRECTED 14 Days Qty: 420 RF: 0 ranitidine HCl 15 mg/mL Syrup 150 mg G-Tube QAM 30 Days Qty: 300 RF: 0 sucralfate 100 mg/mL suspension 10 ml PO QID PRN (Reason: Mouth Sores) 5 Days Qty: 200 RF: 0 Continue carvedilol 25 mg tablet 25 mg PO BID RF: 0 acetaminophen [Tylenol Extra Strength] 500 mg tablet 1,000 mg PO TID PRN (Reason: pain) RF: 0 ondansetron HCl [Zofran] 8 mg tablet 8 mg PO TID PRN (Reason: Nausea And Vomiting) RF: 0 polyethylene glycol 3350 [Miralax] 17 gram/dose powder 17 gm PO DAILY PRN (Reason: constipation) RF: 0 oxycodone-acetaminophen [Percocet] 10-325 mg tablet 1 tab PO Q6H PRN (Reason: Pain) RF: 0 levothyroxine 125 mcg capsule 125 mcg PO DAILY RF: 0 lorazepam 0.5 mg tablet 0.5 mg PO DAILY PRN (Reason: anxiety) Qty: 30 RF: 0 enalapril maleate 5 mg Tablet 5 mg PO DAILY RF: 0 allopurinol 100 mg Tablet 50 mg PO DAILY RF: 0 omeprazole 20 mg Tablet,Delayed Release (Dr/Ec) 20 mg PO DAILY PRN (Reason: Indigestion) RF: 0 Changed fentanyl [Duragesic] 50 mcg/hr patch 72 hour 1 patch TD Q48H Qty: 0 RF: 0 Stand-Alone Forms: [facility] Discharge Orders: Discharge Order (Routine); Ordered 05/07/18 Ordered By: Roxana Olson Admission Data Admit Date/Time: 05/05/18 19:07 Attending Provider: Henry Grimaldo Admit Provider: Henrry Magana Primary Care Provider: Ricki Palomares Other Providers: Robin Guerrero V ; Jesus Manuel Gusman ; Henrry Magana Service: Telemetry Other Interventions: Discharge Summary Assessment (RN) Last Done: 05/07/18 16:04 Pending Studies at Discharge: No DC Date/Time DO NOT enter until pt leaves facility: 05/07/18 17:26
[2018-05-08] MEDS ORDERED: fentaNYL 50 MCG/HR TDSY TD SCH (09:00)
--- NOTE | 2018-05-11 08:36 | Coding Query ---
MALNUTRITION To promote full compliance with coding requirements relating to patient care, physician participation is requested in all cases of health insurance agent uncertainty. Please assist us with the question(s) below: Please place an X within the parenthesis (x). If other, please document: "Malnutrition" is documented in this record. If possible, please check the box that provides a more specific diagnosis: ( ) Mild malnutrition ( x) Moderate malnutrition ( ) Severe malnutrition ( ) Protein malnutrition (kwashiorkor) ( ) Severe protein calorie malnutrition ( ) Protein calorie malnutrition, unspecified ( ) Other (please specify): Was this diagnosis present on admission? Please place an X within the parenthesis (x). (x ) Present on admission ( ) Not present on admission ( ) Unable to be clinically determined Thank you HE Campbell [facility]
== END 2018-05-07 17:26 | disposition home health service (06) | DRG 809 ==
LOC: ED 16:30 → 2W 19:07 → SUATTDRO 19:07 → 2W 20:00

== ENCOUNTER 2021-10-17 12:42 | Inpatient (IN) ==
[2021-10-17 13:43] LABS: Basophils # (auto) 0.02 K/uL (0-0.2); Basophils % (auto) 0.6 %; Eosinophils # (auto) 0.12 K/uL (0-0.50); Eosinophils % (auto) 3.7 %; Hemoglobin 12.8 g/dl (14.0-18.0); Immature Granulocytes # (auto) 0.01 K/uL (0.00-0.02); Immature Granulocytes % (auto) 0.3 %; Lymphocytes # (auto) 0.59 K/uL (1.2-3.4); Lymphocytes % (auto) 18.2 %; Mean Corpuscular Hgb Conc 33.7 g/dL (32.0-36.0); Mean Platelet Volume 9.4 fL (9.4-12.4); Monocytes # (auto) 0.38 K/uL (0.24-0.82); Monocytes % (auto) 11.7 %; Neutrophils # (auto) 2.12 K/uL (1.4-6.5); Neutrophils % (auto) 65.5 %; Platelet Count 114 K/uL (130-400); RDW Coefficient of Variation 13.5 % (11.5-14.5); Red Blood Count 4.13 M/uL (4.63-6.08); White Blood Count 3.24 K/ul (4.8-10.8)
[2021-10-17 13:57] LABS: Partial Thromboplastin Ratio 0.9; Partial Thromboplastin Time 26.1 Seconds (21.0-31.0)
[2021-10-17 14:15] LABS: Albumin Globulin Ratio 1.4 (0.9-2); Albumin Level 4.1 gm/dl (3.4-5.0); BUN Creatinine Ratio 17.9 (10-20); Bilirubin,Total 1.1 mg/dl (0.2-1.0); Calcium 9.4 mg/dl (8.5-10.1); Creatinine Clr Calc Pharmacy 61.8 ml/min; Est GFR (African American) 74.3 ml/min; Est GFR (Non-African American) 64.1 ml/min; Magnesium 1.9 mg/dl (1.7-2.4); Potassium 4.3 mmol/L (3.5-5.1); Total Protein 7.1 gm/dl (6.0-8.3)
--- NOTE | 2021-10-17 14:36 | Emergency Department Note ---
Impression & Plan Acute confusion, Generalized weakness, Word finding difficulty ED Provider Note Name: JUSTIN JALLOH Age: 86 Sex: M Arrives Via: Walk-In Informant: Patient, ED Provider: Tomasz Archer MD Chief Complaint: Confusion Impression: As per impressions above Medical Decision Makin-year-old gentleman with a history of hypertension, hypothyroidism, hyp erlipidemia, diabetes, CKD, GERD, cardiomyopathy arrives for evaluation of 3 days of transient periodic confusion, word finding difficulty and slight difficulty ambulating mostly due to generalized weakness. He is known to me from his previous visit 3 days earlier when this had initially started which he had work-up including CT head most other labs and testing that had revealed some mild hypomagnesemia. At that point initially had discussed hospitalization the patient had thoroughly declined having that done. Due to continued on and off symptoms especially worsening today he was brought back to the ER for repeat evaluation. He actually somewhat better on my evaluation that he did a few days ago though still appears somewhat tired. He is neurologically intact, is speaking without slurred words and his really only complaint is just a mild headache that he had several days earlier. He has no fever no chills and repeat laboratory work-up is unremarkable. Repeat evaluation of the CT from 3 days ago noticed may be some maxillary sinusitis but no evidence of bleed. I discussed the case with Dr. Scruggs of neurology who knows the family and suggested MRI imaging possibly hospitalization for further evaluation. I think given the fact has been going on for several days and this is increasingly concerning I do feel that hospitalization is indicated and thus hospitalist was consulted for further management. and patient were comfortable with this plan at this time and agreeable to coming in today. patient does not appear to be septic he does not have meningitis by examination. Prior Medical Record and Triage/Nursing Notes reviewed by Me Additional history obtained from chart Differentials:Infection, dehydration, metabolic abnormality, hypo/hyperglycemia, electrolyte disturbance, anemia, hypoxia, cardiac sources, intracerebral event, toxicologic, neurologic, as well as other pathologies. Vital Signs: reviewed and remarkable for no significant abnormalities Labs:Reviewed and remarkable for no significant abnormalities Imaging:Reviewed CT imaging from several days earlier EKG:Per My Interpretation: Indication generalized weakness. AV dual paced at 75 bpm with a QTC of 515. This is similar to an EKG from October 14, 2021 Consults:Dr. Scruggs of neurology and not any hospitalist Plan: Disposition:Hospitalization. Condition: Good History of Present Illness:86-year-old gentleman arrives for evaluation of confusion. Patient was seen 3 days ago in the ER for similar episode of confusion and difficulty finding words and slurred speech. He had a work-up including CT head extensive labs and was found to be hypomagnesemic. At that time plan was for admission however patient preferred to go home. Patient notes that yesterday he was doing well however today symptoms started returning again. He notes this morning he was having trouble finding words and feels like he just is moving slowly. notes that at times he seems distant. She notes he has word finding issues. She does note that he seems to be having difficulty grasping things. Patient however states he is not having any arm or leg weakness.. Patient does note that he has a mild diffuse headache which is unusual for him. He has had no recent falls, trauma, injuries. Patient denies any fevers, chills, neck pain, visual changes, swallowing difficulties, shortness of breath, chest pain, abdominal pain, back pain, urinary symptoms or other concerning signs or symptoms. He has never had anything like this before. He does have a history of esophageal cancer. He is on no blood thinners including no aspirin or Plavix use. He denies any history of stroke or neurologic issues. Nothing seems to make his symptoms better or worse. He has no new medications that he has been taking. ROS: See above HPI for pertinent positives & negatives. A total of 10 systems reviewed and were otherwise negative. Past Medical History:See Below Past Surgical History:See Below Family History:See Below Social History:See Below Home Medications:See Below Allergies:See Below Vitals:Blood Pressure: 124/81, Pulse 82, RR 18, T 36.2C, O2 96% on RA Physical Exam: GENERAL: Patient is tired appearing and in mild distress. HEAD: AT/NC EYES: No scleral icterus, unremarkable pupils. ENT: Mucous membranes moist, no nasal congestion. NECK: No masses appreciated, nomeningismus, trachea is midline. RESPIRATORY: No dyspnea. Clear to auscultation and equal bilaterally. No wheeze, no rhonchi. CARDIOVASCULAR: Regular rate and rhythm.No murmurs, rubs, gallops appreciated. GASTROINTESTINAL: Abdomen soft, non-tender, no peritonitis.Bowel sounds positive.No masses appreciated. BACK: No midline tenderness, no CVA tenderness EXTREMITIES: Normal motion all extremities, no cyanosis, no edema. NEUROLOGIC: Alert and oriented, no acute motor or sensory deficits, no focal weakness, cranial nerves grossly intact. SKIN: No rash, no jaundice, no diaphoresis. PSYCH: Appropriate GCS: 15 ED Course: Times/Reassessments: Patient stable no distress and is agreeable to hospitalization at this time Tomasz Archer MD Past Med/Surg History Medical History Complete heart block Diabetes mellitus Resolved with weight loss. A1C 4.8 09/2019 Dilated cardiomyopathy Dysphagia History of congestive heart failure Malnutrition Prostate cancer Dr. Orta, Urologist in [place] follow patient Surgical History H/O umbilical hernia repair History of cataract surgery History of implantable cardioverter-defibrillator (ICD) placement History of tonsillectomy PEG (percutaneous endoscopic gastrostomy) status placed at [facility] 2018 S/P cholecystectomy S/P LASIK surgery of both eyes Family History Brother Prostate cancer Father , age 79 Multiple myeloma Mother , age 85 from "old age" No problems noted. Denies family history of Ovarian cancer Myocardial infarction Breast cancer Colorectal cancer Social History Smoking Status: Never smoker Years Smoked: 20; Cigarettes Per Day: has smoked socially for many years, never heavy; Second Hand Exposure: Yes; Hx Alcohol Use: Yes Alcohol type: hard liquor Hx Substance Use: No Preferred Language: Kenyan Communication Ability: Effective Visual Impairment: No Limitations Hearing Ability: Normal Interactive Media Designer Required: No Beliefs That Will Affect Care: None marital status: Current Living Situation: Spouse and Family current occupational status: 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 Feels Safe at Home: Yes caffeine: No during the past year weight has: decreased > 10 lbs Seatbelt Use: always Assistive Devices: Hearing Aid - Bilateral Allergies Allergies Allergy/AdvReac Type Severity Reaction Status Date / Time spironolactone Allergy Severe Hypotension; Verified 10/17/21 15:26 [From Aldactone] Fatigue levofloxacin [From Levaquin] Allergy Intermediate rash at IV Verified 10/17/21 15:26 site rosuvastatin [From Crestor] AdvReac Unknown Elevated Verified 10/17/21 15:26 liver enzymes Home Meds Home Medications Medication Instructions Recorded Confirmed omeprazole 20 mg capsule,delayed 20 mg PO BID PRN Acid Reflux 09/16/19 10/17/21 release atorvastatin 20 mg tablet 20 mg PO HS 10/17/21 10/17/21 coenzyme Q10 100 mg capsule (Co 100 mg PO DAILY 10/17/21 10/17/21 Q-10) levothyroxine 150 mcg tablet 150 mcg PO DAILYBB 10/17/21 10/17/21 magnesium oxide 400 mg PO UD 10/17/21 10/17/21 Previous Rx's Medication Instructions Recorded carvedilol 12.5 mg tablet 12.5 mg PO BID #180 tabs 04/20/21 Results & Data (ED) Vital Signs Vital Signs - 24 hr 10/17/21 14:43 Pulse Rate [Apical] 74 Respiratory Rate 16 Respiratory Effort / Characteristics Non-Labored Respiratory Depth Normal Respiratory Pattern Regular Blood Pressure [Left Arm] 166/98 H Blood Pressure Mean [Left Arm] 120 Pulse Oximetry 98 Oxygen Delivery Method Room Air Laboratory Data Result diagrams: 10/18/21 07:00 10/18/21 07:00 Lab Results 10/17/21 10/17/21 10/17/21 Range/Units 13:16 13:29 13:29 WBC 3.24 L (4.8-10.8) K/ul RBC 4.13 L (4.63-6.08) M/uL Hgb 12.8 L (14.0-18.0) g/dl Hct 38.0 L (40.1-51.0) % MCV 92.0 (80.0-100.0) fL MCH 31.0 (25.0-34.0) pg MCHC 33.7 (32.0-36.0) g/dL RDW Std Deviation 45.0 (36.4-46.3) fL RDW Coeff of Tonia 13.5 (11.5-14.5) % Plt Count 114 L (130-400) K/uL MPV 9.4 (9.4-12.4) fL Immature Gran % (Auto) 0.3 % Neut % (Auto) 65.5 % Lymph % (Auto) 18.2 % [place] % (Auto) 11.7 % Eos % (Auto) 3.7 % Baso % (Auto) 0.6 % Neut # (Auto) 2.12 (1.4-6.5) K/uL Lymph # (Auto) 0.59 L (1.2-3.4) K/uL [place] # (Auto) 0.38 (0.24-0.82) K/uL Eos # (Auto) 0.12 (0-0.50) K/uL Baso # (Auto) 0.02 (0-0.2) K/uL Immature Gran # (Auto) 0.01 (0.00-0.02) K/uL ESR (0-20) mm/hr PT 11.0 (9.0-12.0) Seconds INR 1.0 (0.9-1.1) APTT 26.1 (21.0-31.0) Seconds PTT Ratio 0.9 Sodium (136-145) mmol/L Potassium (3.5-5.1) mmol/L Chloride (98-107) mmol/L Carbon Dioxide (21-32) mmol/L Anion Gap (3-11) BUN (6-23) mg/dl Creatinine (0.6-1.4) mg/dl Est Cr Clr Drug Dosing ml/min Est GFR ( Amer) ml/min Est GFR (Non-Af Amer) ml/min BUN/Creatinine Ratio (10-20) Glucose (70-99(Fasting)) mg/dl Calcium (8.5-10.1) mg/dl Magnesium (1.7-2.4) mg/dl Total Bilirubin (0.2-1.0) mg/dl AST (13-39) U/L ALT (7-52) U/L Alkaline Phosphatase (34-104) U/L C-Reactive Protein (0-0.5) mg/dl Total Protein (6.0-8.3) gm/dl Albumin (3.4-5.0) gm/dl Globulin (2.5-4.0) gm/dl Albumin/Globulin Ratio (0.9-2) TSH (0.300-4.500) uIu/ml Urine Color Yellow Urine Appearance Clear (Clear) Urine pH 7.0 (4.5-7.5) Ur Specific [place] > 1.045 H (1.000-1.030) Urine Protein Negative (Negative) Urine Glucose (UA) Negative (Negative) Urine Ketones Negative (Negative) Urine Blood Negative (Negative) Urine Nitrite Negative (Negative) Urine Bilirubin Negative (Negative) Urine Urobilinogen Negative (Negative) Ur Leukocyte Esterase Negative (Negative) SARS-CoV-2, RNA, NAAT (NEGATIVE) 10/17/21 10/17/21 10/17/21 Range/Units 13:29 13:29 13:29 WBC (4.8-10.8) K/ul RBC (4.63-6.08) M/uL Hgb (14.0-18.0) g/dl Hct (40.1-51.0) % MCV (80.0-100.0) fL MCH (25.0-34.0) pg MCHC (32.0-36.0) g/dL RDW Std Deviation (36.4-46.3) fL RDW Coeff of Tonia (11.5-14.5) % Plt Count (130-400) K/uL MPV (9.4-12.4) fL Immature Gran % (Auto) % Neut % (Auto) % Lymph % (Auto) % [place] % (Auto) % Eos % (Auto) % Baso % (Auto) % Neut # (Auto) (1.4-6.5) K/uL Lymph # (Auto) (1.2-3.4) K/uL [place] # (Auto) (0.24-0.82) K/uL Eos # (Auto) (0-0.50) K/uL Baso # (Auto) (0-0.2) K/uL Immature Gran # (Auto) (0.00-0.02) K/uL ESR 22 H (0-20) mm/hr PT (9.0-12.0) Seconds INR (0.9-1.1) APTT (21.0-31.0) Seconds PTT Ratio Sodium 138 (136-145) mmol/L Potassium 4.3 (3.5-5.1) mmol/L Chloride 105 (98-107) mmol/L Carbon Dioxide 27 (21-32) mmol/L Anion Gap 6 (3-11) BUN 19 (6-23) mg/dl Creatinine 1.06 (0.6-1.4) mg/dl Est Cr Clr Drug Dosing 61.8 ml/min Est GFR ( Amer) 74.3 ml/min Est GFR (Non-Af Amer) 64.1 ml/min BUN/Creatinine Ratio 17.9 (10-20) Glucose 94 (70-99(Fasting)) mg/dl Calcium 9.4 (8.5-10.1) mg/dl Magnesium 1.9 (1.7-2.4) mg/dl Total Bilirubin 1.1 H (0.2-1.0) mg/dl AST 19 (13-39) U/L ALT 24 (7-52) U/L Alkaline Phosphatase 55 (34-104) U/L C-Reactive Protein (0-0.5) mg/dl Total Protein 7.1 (6.0-8.3) gm/dl Albumin 4.1 (3.4-5.0) gm/dl Globulin 3.0 (2.5-4.0) gm/dl Albumin/Globulin Ratio 1.4 (0.9-2) TSH 0.200 L (0.300-4.500) uIu/ml Urine Color Urine Appearance (Clear) Urine pH (4.5-7.5) Ur Specific [place] (1.000-1.030) Urine Protein (Negative) Urine Glucose (UA) (Negative) Urine Ketones (Negative) Urine Blood (Negative) Urine Nitrite (Negative) Urine Bilirubin (Negative) Urine Urobilinogen (Negative) Ur Leukocyte Esterase (Negative) SARS-CoV-2, RNA, NAAT (NEGATIVE) 10/17/21 10/17/21 Range/Units 13:29 15:33 WBC (4.8-10.8) K/ul RBC (4.63-6.08) M/uL Hgb (14.0-18.0) g/dl Hct (40.1-51.0) % MCV (80.0-100.0) fL MCH (25.0-34.0) pg MCHC (32.0-36.0) g/dL RDW Std Deviation (36.4-46.3) fL RDW Coeff of Tonia (11.5-14.5) % Plt Count (130-400) K/uL MPV (9.4-12.4) fL Immature Gran % (Auto) % Neut % (Auto) % Lymph % (Auto) % [place] % (Auto) % Eos % (Auto) % Baso % (Auto) % Neut # (Auto) (1.4-6.5) K/uL Lymph # (Auto) (1.2-3.4) K/uL [place] # (Auto) (0.24-0.82) K/uL Eos # (Auto) (0-0.50) K/uL Baso # (Auto) (0-0.2) K/uL Immature Gran # (Auto) (0.00-0.02) K/uL ESR (0-20) mm/hr PT (9.0-12.0) Seconds INR (0.9-1.1) APTT (21.0-31.0) Seconds PTT Ratio Sodium (136-145) mmol/L Potassium (3.5-5.1) mmol/L Chloride (98-107) mmol/L Carbon Dioxide (21-32) mmol/L Anion Gap (3-11) BUN (6-23) mg/dl Creatinine (0.6-1.4) mg/dl Est Cr Clr Drug Dosing ml/min Est GFR ( Amer) ml/min Est GFR (Non-Af Amer) ml/min BUN/Creatinine Ratio (10-20) Glucose (70-99(Fasting)) mg/dl Calcium (8.5-10.1) mg/dl Magnesium (1.7-2.4) mg/dl Total Bilirubin (0.2-1.0) mg/dl AST (13-39) U/L ALT (7-52) U/L Alkaline Phosphatase (34-104) U/L C-Reactive Protein < 0.50 (0-0.5) mg/dl Total Protein (6.0-8.3) gm/dl Albumin (3.4-5.0) gm/dl Globulin (2.5-4.0) gm/dl Albumin/Globulin Ratio (0.9-2) TSH (0.300-4.500) uIu/ml Urine Color Urine Appearance (Clear) Urine pH (4.5-7.5) Ur Specific [place] (1.000-1.030) Urine Protein (Negative) Urine Glucose (UA) (Negative) Urine Ketones (Negative) Urine Blood (Negative) Urine Nitrite (Negative) Urine Bilirubin (Negative) Urine Urobilinogen (Negative) Ur Leukocyte Esterase (Negative) SARS-CoV-2, RNA, NAAT NEGATIVE (NEGATIVE) Administered Medications Acetaminophen (Acetaminophen 500 Mg Tab) 1,000 mg PO Q8H PRN PRN Reason: Headache Stop: 11/17/21 03:05 Last Admin: 10/18/21 03:15 Dose: 1,000 mg Documented By: MELVINA Atorvastatin Calcium (Atorvastatin 20 Mg Tab) 20 mg PO HS [facility] Stop: 11/16/21 20:59 Last Admin: 10/17/21 20:31 Dose: 20 mg Documented By: SHERIF Carvedilol (Carvedilol 12.5 Mg Tab) 12.5 mg PO BID [facility] Stop: 11/16/21 20:59 Last Admin: 10/18/21 08:22 Dose: 12.5 mg Documented By: [id number] Admin: 10/17/21 20:31 Dose: 12.5 mg Documented By: SHERIF Levothyroxine Sodium (Levothyroxine Sodium 150 Mcg Tablet) 150 mcg PO DAILYBB [facility] Stop: 11/17/21 06:29 Last Admin: 10/18/21 05:45 Dose: 150 mcg Documented By: MELVINA Magnesium Oxide (Magnesium Oxide 400 Mg Tab) 400 mg PO BID [facility] Stop: 10/21/21 21:01 Last Admin: 10/18/21 08:22 Dose: 400 mg Documented By: [id number] Admin: 10/17/21 20:31 Dose: 400 mg Documented By: SHERIF Discontinued Medications Sodium Chloride (Nss 1000ml) 1,000 mls @ 999 mls/hr IV .Q1H1M ONE Stop: 10/17/21 16:09 Last Infusion: 10/17/21 17:29 Dose: 0 mls/hr Documented By: Admin: 10/17/21 15:28 Dose: 999 mls/hr Documented By: MARZENA Lactated Ringer's (Lr) 1,000 mls @ 100 mls/hr IV .Q10H [facility]NA Stop: 10/18/21 03:59 Last Infusion: 10/18/21 07:03 Dose: 0 mls/hr Documented By: [id number] Admin: 10/17/21 20:36 Dose: 100 mls/hr Documented By: SHERIF Ioversol (Optiray 320 125ml) 121 ml IV ONCE ONE Stop: 10/18/21 10:18 Last Admin: 10/18/21 10:23 Dose: 121 ml Documented By: DARRIAN Discharge Plan Visit Data Chief Complaint: Confusion Stated Complaint: confusion, headache ED Provider: Tomasz Archer Discharge Problem: Acute confusion, Generalized weakness, Word finding difficulty Patient Disposition: Admitted As Inpatient Discharge Instructions Interventions: ED Discharge Assessment Last Done: 10/17/21 17:59
[2021-10-17] MEDS ORDERED: SODIUM CHLORIDE 0.9% 1000ML 1,000 ML IV ONE (15:09)
--- NOTE | 2021-10-17 15:13 | History & Physical Report ---
Date of Service October 17, 2021 Assessment & Plan (1) Stroke-like symptoms: Plan: - Word finding difficulty, feeling generally "slow" since Friday, 10/14 with reports of transient total left eye vision loss 1 day ago for 5 minutes, which also occurred 6 months ago in the same eye. - Concern would be CVA vs metastatic disease given his recent history of SCC cancer of tongue in 2018 with pulm. met dz in 2019 s/p wedge resection. - Patient not a candidate for tPA given his very mild symptoms plus onset of symptoms 3 days ago. - CT w/o contrast on 10/14 without evidence of acute CVA. Patient denied admission and further work-up at that time. - Obtain MRI both with and without contrast to look for CVA, as well as metastatic disease as cause of symptoms. - Bilateral carotid Doppler scan ordered, given patient's reported history of transient vision loss. - Echo in a.m. - CBC, BMP, HbA1c, lipid panel in a.m. - PT, OT, ST to evaluate in a.m. - Telemetry for 24 hours, evaluate for episodes of atrial fibrillation. - Patient does have a history of diabetes, however with weight loss was able to bring A1c down to 4.8%. He is already on a statin, although not high-intensity. Will defer medication changes/additions to tomorrow's provider based on results from labs and imaging. - Neurology consulted, appreciate their recommendations. 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 Follows with [facility] as well as MD in [place] (patient lives there during winter months). - 09/18/19--> developed a left lower lobe pulmonary nodule identified on PET-CT 09/18/2019. 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 - A new LLL nodule was identified on CT scanning from August 2020, however on follow-up scan in November 2020, it had resolved. - Neuro work-up as above to ensure symptoms are not result of metastatic disease to brain. (3) Hyperlipidemia: Plan: - Continue atorvastatin 20 mg at night. (4) Hypothyroidism: Plan: - Continue levothyroxine 50 mcg daily. (5) Chronic kidney disease, stage 3a: Plan: - PCP note from 01/18 notes this diagnosis, reports creatinine baseline 1.261 0.86, however today with creatinine of 1.06, GFR 64.1. - Continue to avoid nephrotoxic agents, renally dose medications as able. - Patient will be undergoing MRI both with and without contrast, however will receive IV fluids prior to and after. Continue to watch renal function on a.m. labs. (6) Anemia: Plan: - Hgb 12.8, at baseline. No acute bleeding. (7) Biventricular ICD (implantable cardioverter-defibrillator) in place: Plan: - 2/2 complete heart block. MRI compatible. (8) Cardiomyopathy: Plan: - Per cardiology note, most likely resolved years ago with placement of ICD. No recent echocardiograms in our system. - Continue carvedilol 12.5 mg twice daily. (9) Gastroesophageal reflux disease: Plan: - Omeprazole prn. Plan - Admit to med/tele - SCDs for VTE ppx. -Full Code. History of Present Illness Chief Complaint: Word-finding difficulty x3 days Primary Care Provider: Zaire Franks MD Janes Lyles is an 86-year-old male with past medical history SCC of tongue in 2018 with metastatic disease to the lung in 2020 s/p wedge resection, hyperlipidemia, hypothyroidism, cardiomyopathy and complete heart block s/p ICD, and CKD 3 with a chronic anemia who presents today with word finding difficulties. Patient was actually seen in our ED just 3 days ago on 10/14 for fatigue, confusion and slurred speech with word finding difficulty. He had a benign neuro exam, head CT was unremarkable and labs were only significant for low magnesium. No evidence of ACS or infection. It was recommended that patient be admitted for a comprehensive neuro work-up, however he adamantly refused admission at that time. Today, he presents once again because he is feeling generally slow and again having difficulty with word finding, which reports never really went away since Friday. Additionally, patient states he had a left-sided sharp headache rated 8/10 last evening for which he took 3 Tylenol had full resolution. He also had an episode of 5 minutes of total vision loss in his left eye 1 day ago, which also occurred 6 months ago. He is otherwise without any focal/tingling, visual changes, headache, nausea, vomiting, dizziness. No other complaints. Labs today significant for a decreased WBC which is also noted 3 days ago, stable anemia, T bili minimally elevated at 1.1. No electrolyte abnormalities. TSH low at 0.200. Allergies Allergy/AdvReac Type Severity Reaction Status Date / Time spironolactone Allergy Severe Hypotension; Verified 10/17/21 15:26 [From Aldactone] Fatigue levofloxacin [From Levaquin] Allergy Intermediate rash at IV Verified 10/17/21 15:26 site rosuvastatin [From Crestor] AdvReac Unknown Elevated Verified 10/17/21 15:26 liver enzymes Home Medications Medication Instructions Recorded Confirmed Type omeprazole 20 mg capsule,delayed 20 mg PO BID PRN Acid Reflux 09/16/19 10/17/21 History release carvedilol 12.5 mg tablet 12.5 mg PO BID #180 tabs 04/20/21 10/17/21 Rx atorvastatin 20 mg tablet 20 mg PO HS 10/17/21 10/17/21 History coenzyme Q10 100 mg capsule (Co 100 mg PO DAILY 10/17/21 10/17/21 History Q-10) levothyroxine 150 mcg tablet 150 mcg PO DAILYBB 10/17/21 10/17/21 History magnesium oxide 400 mg PO UD 10/17/21 10/17/21 History Past Med/Surg History Medical History Complete heart block Diabetes mellitus Resolved with weight loss. A1C 4.8 09/2019 Dilated cardiomyopathy Dysphagia History of congestive heart failure Malnutrition Prostate cancer Dr. Orta, Urologist in [place] follow patient Surgical History H/O umbilical hernia repair History of cataract surgery History of implantable cardioverter-defibrillator (ICD) placement History of tonsillectomy PEG (percutaneous endoscopic gastrostomy) status placed at [facility] 2018 S/P cholecystectomy S/P LASIK surgery of both eyes Family History Brother Prostate cancer Father , age 79 Multiple myeloma Mother , age 85 from "old age" No problems noted. 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 other: 2 sons Feels Safe at Home: Yes caffeine: No during the past year weight has: decreased > 10 lbs Seatbelt Use: always Assistive Devices: Hearing Aid - Bilateral Review of Systems Review of Systems: Constitutional: No fever/chills, weakness, fatigue, myalgias, anorexia, night sweats Eyes: total L vision loss for 5 minutes yesterday and 6 months ago; No diplopia or blurred vision ENT: normal hearing, no trouble swallowing Respiratory: No cough, sputum, dyspnea at rest or on exertion Cardiovascular: No chest pain, tightness or palpitations Abdomen: No pain, nausea, vomiting, diarrhea or constipation : Denies dysuria, hematuria, increased urgency/frequency, urinary retention Musculoskeletal: No joint pain, calf pain, swelling Neurologic: word fiding difficulty isnce Saturday 10/14; No weakness, numbness/tingling, or balance problems Psychiatric: No anxiety or depression Skin: No rash or itch Physical Exam Physical Exam: General: awake, alert, no apparent distress Head: Normocephalic, atraumatic ENT: PERRL, EOMI, no pharyngeal exudate, mucous membranes moist Chest: Clear to auscultation, on room air, no adventitious breath sounds Cardiac: Regular rate and rhythm, no murmur, no JVD, normal peripheral pulses, good capillary refill Abdominal: NABS x 4 quadrants, soft, nontender to palpation, no rebound, guarding or tenderness Extremities: Normal inspection, no peripheral edema or erythema, calfs nontender to palpation Psych: Normal mood and affect Neuro: Speech is clear, patient able to comprehend language and participate in interview, with only a few moments of word finding difficulty; AAO x 3, strength intact bilaterally and rated 5/5, no motor deficits, no peripheral sensory deficits Skin: no rash or erythema Results & Data Results & Data ([facility]) Vital Signs (Past 12 Hours) Vital Signs Temp Pulse Resp BP Pulse Ox O2 Del Method 10/17/21 12:48 36.2 C L 82 18 124/81 96 Room Air Laboratory Results Abnormal lab results 10/17/21 10/17/21 10/17/21 Range/Units 13:29 13:29 13:29 WBC 3.24 L (4.8-10.8) K/ul RBC 4.13 L (4.63-6.08) M/uL Hgb 12.8 L (14.0-18.0) g/dl Hct 38.0 L (40.1-51.0) % Plt Count 114 L (130-400) K/uL Lymph # (Auto) 0.59 L (1.2-3.4) K/uL Total Bilirubin 1.1 H (0.2-1.0) mg/dl TSH 0.200 L (0.300-4.500) uIu/ml ECG Additional Comments: AV dual-paced rhythm Biventricular pacemaker detected Abnormal ECG When compared with ECG of 14-OCT-2021 11:34, Vent. rate has decreased BY 11 BPM. Code Status & VTE Plan Code Status Full Code. Supervising Physician Co-Signing Physician Notes Patient seen and examined, chart reviewed, case discussed with Yvonne Henry PA-C and I agree with the assessment and plan as above except as otherwise noted At bedside patient in paced rhythm, breathing comfortably on room air, no acute distress. Vision is intact bilaterally, pupils are equal and reactive. sensation to soft touch intact in hands and feet without asymmetry, resort manager strength and ankle dorsiflexion/plantar flexion intact and symmetrical. Finger- nose testing normal. No visual field cuts to confrontation at time of assessment. Lungs clear, no carotid bruit appreciated, no murmur appreciated. Janes is a 86-year-old male with past medical history of SCC of the tongue with pulmonary metastasis status post wedge resection, HTN, HLD, hypothyroidism, third-degree heart block s/p ICD, CKD 3 who presents with a recurrent episode of word finding difficulty. Was recently seen for similar 3 days ago with normal exam and who refused admission for overnight stroke work-up/MRI at that time. Recurrent symptoms of difficulty with word finding although no distinct aphasia/dysarthria. Left-sided headache, and has had 2 episodes of complete left eye vision loss resolved by time of assessment. Monocular vision loss? Amaurosis with reported word finding difficulty, After prior episode patient did have ophthalmologic evaluation with no findings appreciated. No ongoing deficits at time of bedside evaluation ESR/CRP for initial GCA screen. MRI with and without given history of cancer with metastasis ordered, will extend to MRI of the neck for carotid evaluation Echo pending Lipids, A1c pending Continue statin, dose increase if indicated based on lipid panel Antiplatelet pending work-up above PG Care Time/CCT Total # of Minutes Spent Total Time Spent with Patient: Total time spent is greater than 50% in coordination of care (as documented) at patient's floor/unit and/or counseling patient: Coding Level of Care Code 10138 Initial Inpt Care Lvl 2 Diagnoses Stroke-like symptoms R29.90 Squamous cell carcinoma of base of tongue C01 Hyperlipidemia E78.5 Hypothyroidism E03.9 Hypothyroidism type: acquired Chronic kidney disease, stage 3a N18.3 Anemia D64.9 Biventricular ICD (implantable cardioverter-defibrillator) in place Z95.810 Cardiomyopathy I42.9 Gastroesophageal reflux disease K21.9 Esophagitis presence: without esophagitis (1) Hypothyroidism Hypothyroidism type: acquired Qualified Code(s): E03.9 - Hypothyroidism, unspecified (2) Gastroesophageal reflux disease Esophagitis presence: without esophagitis Qualified Code(s): K21.9 - Gastro- esophageal reflux disease without esophagitis
--- NOTE | 2021-10-17 16:55 | Electrocardiogram Report ---
Test Reason : Blood Pressure : / mmHG Vent. Rate : 075 BPM Atrial Rate : 075 BPM P-R Int : 128 ms QRS Dur : 168 ms QT Int : 462 ms P-R-T Axes : 082 -81 068 degrees QTc Int : 515 ms AV dual-paced rhythm Biventricular pacemaker detected Abnormal ECG When compared with ECG of 14-OCT-2021 11:34, Vent. rate has decreased BY 11 BPM Confirmed by Zaire Welch ([id number]) on 10/17/2021 4:54:57 PM Referred By: REFERRED SELF Confirmed By:Zaire Welch
[2021-10-17] MEDS ORDERED: PHARMACIST DISCHARGE MED REC CONSULT PRN (17:48)
[2021-10-17] MEDS ORDERED: POLYETHYLENE (MIRALAX) 17 GM PACK PO PRN (17:48)
[2021-10-17] MEDS ORDERED: ONDANSETRON INJ 2 MG/ML 2 ML VIAL IV PRN (17:48)
[2021-10-17] MEDS ORDERED: PANTOprazole 40 MG TAB PO PRN (17:58)
[2021-10-17] MEDS ORDERED: LACTATED RINGER'S 1,000 ML IV SCH (18:00)
[2021-10-17] MEDS: carvediloL 12.5 MG TAB PO SCH (20:31)
[2021-10-17] MEDS: MAGNESIUM OXIDE 400 MG TAB PO SCH (20:31)
[2021-10-17] MEDS ORDERED: ATORVASTATIN 20 MG TAB PO SCH (21:00)
[2021-10-18] MEDS ORDERED: ACETAMINOPHEN 500 MG TAB PO PRN (03:06)
[2021-10-18] MEDS ORDERED: LEVOTHYROXINE SODIUM 150 MCG TABLET PO SCH (06:30)
[2021-10-18] MEDS: MAGNESIUM OXIDE 400 MG TAB PO SCH (08:22)
[2021-10-18] MEDS: carvediloL 12.5 MG TAB PO SCH (08:22)
[2021-10-18 08:24] LABS: BUN Creatinine Ratio 16.7 (10-20); Calcium 8.5 mg/dl (8.5-10.1); Chol HDL Ratio 3.7 (0-5); Est GFR (African American) 83.8 ml/min; Est GFR (Non-African American) 72.3 ml/min; Potassium 3.9 mmol/L (3.5-5.1)
[2021-10-18 08:29] LABS: Basophils # (auto) 0.01 K/uL (0-0.2); Basophils % (auto) 0.4 %; Eosinophils % (auto) 3.6 %; Hematocrit (blood only) 35.6 % (40.1-51.0); Hemoglobin 12.2 g/dl (14.0-18.0); Lymphocytes # (auto) 0.46 K/uL (1.2-3.4); Lymphocytes % (auto) 16.8 %; Mean Corpuscular Hemoglobin 31.9 pg (25.0-34.0); Mean Corpuscular Hgb Conc 34.3 g/dL (32.0-36.0); Monocytes # (auto) 0.35 K/uL (0.24-0.82); Monocytes % (auto) 12.8 %; Neutrophils # (auto) 1.82 K/uL (1.4-6.5); Neutrophils % (auto) 66.4 %; Platelet Count 95 K/uL (130-400); Platelet Estimate Decreased (Normal); RDW Coefficient of Variation 13.2 % (11.5-14.5); RDW Standard Deviation 44.7 fL (36.4-46.3); Red Blood Count 3.83 M/uL (4.63-6.08); White Blood Count 2.74 K/ul (4.8-10.8)
[2021-10-18] MEDS ORDERED: NON-FORMULARY MEDICATION (Coenzyme Q10 [Co Q-10] 100 mg Capsule) PO SCH (09:00)
[2021-10-18 09:07] LABS: Estimated Average Glucose 100 mg/dl; Hemoglobin A1C 5.1 % (4.5-5.6)
[2021-10-18] MEDS ORDERED: OPTIRAY 320 125ml IV ONE (10:17)
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
--- NOTE | 2021-10-18 10:57 | CT Scan Report ---
NONCONTRAST HEAD CT, HEAD CTA HISTORY: Vision loss. Stroke Like Symptoms TECHNIQUE: Multiaxial CT images of the head were performed without intravenous contrast. Multiaxial C T images of the head were performed following the intravenous administration of contrast to evaluate the major cerebral vessels. Maximum intensity projection images were also obtained. A dose lowering technique was utilized adhering to the principles of ALARA. COMPARISON: Head CT 10/14/2021. FINDINGS: NONCONTRAST HEAD CT: Mild mucosal thickening within the ethmoid air cells and right maxillary sinus. The mastoid air cells are clear. The calvarium and skull base are intact. Mild atrophy and microvascu lar ischemic changes are again noted. There is no mass, hematoma, midline shift, acute infarct. HEAD CTA: The major dural venous sinuses are patent. Moderate calcified plaque within the bilateral c arotid siphons. The distal right vertebral artery is atretic and does not communicate with the basila r artery. The basilar artery is fed through the dominant left vertebral artery which is widely patent . Mild irregularity within the basilar artery and cerebral arteries without significant stenosis, occ lusion, or aneurysm. IMPRESSION: 1. No acute intracranial abnormality. 2. No significant stenosis, occlusion, or aneurysm within the [place]. ACT 112: Negative or not required by law. Electronically signed by: Len Tony M.D. 10/18/2021 10:56 AM
--- NOTE | 2021-10-18 10:58 | CT Scan Report ---
CT angio neck with con CLINICAL HISTORY: Stroke Like Symptoms TECHNIQUE: CT angiography of the neck was performed following intravenous administration of iodinate d contrast. Coronal and sagittal MIPS were obtained from the axial data set and were submitted for re view. Automated dose lowering techniques and/or adjustment according to patient size were utilized f or this examination. All measurements were calculated based on NASCET criteria. Comparison: None available at the time of this dictation. FINDINGS: Lungs and soft tissues are unremarkable. CTA Neck: A 3 vessel aortic arch is shown. There is severe, hemodynamically significant stenosis of the left internal carotid artery just past its origin with greater than 90% stenosis. Atherosclerosis is seen in the right carotid bulb without hemodynamically significant stenosis. The common carotid, external carotid, cervical segments of the internal carotid arteries, and the cervical segments of t he vertebral arteries are patent without hemodynamically significant stenosis. The left vertebral art rosendo is dominant. Partially visualized is origin of the left COMFORT STATION SUPERVISOR. IMPRESSION: Hemodynamically significant stenosis in the left internal carotid artery. Multifocal atherosclerotic disease without other hemodynamically significant foci of stenosis noted. Assessment of stenosis of the internal carotid arteries is based on NASCET criteria. ACT 112: Negative or not required by law. Electronically signed by: Henry Lehman M.D. 10/18/2021 10:57 AM
--- NOTE | 2021-10-18 12:34 | Hospitalist Progress Note ---
Date of Service October 18, 2021 Assessment & Plan (1) Stroke-like symptoms: Plan: Left carotid stenosis with ipsilateral vision loss, word finding difficulties transiently - Word finding difficulty, feeling generally "slow" since Friday, 10/14 with reports of transient total left eye vision loss 1 day ago for 5 minutes, which also occurred 6 months ago in the same eye. - Concern would be CVA vs metastatic disease given his recent history of SCC cancer of tongue in 2018 with pulm. met dz in 2019 s/p wedge resection. - Patient not a candidate for tPA given his very mild symptoms plus onset of symptoms 3 days ago. - CT w/o contrast on 10/14 without evidence of acute CVA. Patient denied admission and further work-up at that time. - MRI not able to be obtained due to incompatible ICD -CTA Neck: A 3 vessel aortic arch is shown. There is severe, hemodynamically significant stenosis of the left internal carotid artery just past its origin with greater than 90% stenosis. Atherosclerosis is seen in the right carotid bulb without hemodynamically significant stenosis. The common carotid, external carotid, cervical segments of the internal carotid arteries, and the cervical segments of the vertebral arteries are patent without hemodynamically significant stenosis. The left vertebral artery is dominant. Partially visualized is origin of the left CHILDCARE DIRECTOR. -CTA-H: 1. No acute intracranial abnormality. 2. No significant stenosis, occlu juan, or aneurysm within the [place]. - Echo pending - LDL 66. Atorvastatin 40mg - A1C 5.1% - Clinically significant L cartoid stenosis with ipsilateral transient vision loss. Vascular consulted. 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 Follows with [facility] as well as in [place] (patient lives there during winter months). - 09/18/19--> developed a left lower lobe pulmonary nodule identified on PET-CT 09/18/2019. 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 - A new LLL nodule was identified on CT scanning from August 2020, however on follow-up scan in November 2020, it had resolved. - Neuro work-up as above. No evidence of brain mets. (3) Hyperlipidemia: Plan: - Continue atorvastatin 20 --> 40 mg at night. (4) Hypothyroidism: Plan: - Continue levothyroxine 50 mcg daily. (5) Chronic kidney disease, stage 3a: Plan: - PCP note from 01/18 notes this diagnosis, reports creatinine baseline 1.261.86 On admission creatinine of approximately 1 Creatinine remains 0.96, trend daily, avoid nephrotoxins were able (6) Anemia: Plan: - Hgb at baseline. No acute bleeding. (7) Biventricular ICD (implantable cardioverter-defibrillator) in place: Plan: - 2/2 complete heart block. MRI initially reported as compatible, on company call is not compatible. CTA obtained instead as above (8) Cardiomyopathy: Plan: - Per cardiology note, most likely resolved years ago with placement of ICD. No recent echocardiograms in our system. - Continue carvedilol 12.5 mg twice daily. - Echo pending (9) Gastroesophageal reflux disease: Plan: - Omeprazole prn. (10) Left carotid stenosis: Plan - Admit to med/tele - SCDs for VTE ppx. -Full Code. Admission and Anticipated Discharge Date Admission Date: October 17, 2021 Subjective Seen at the bedside in morning and on afternoon reassessment. No recurrence of vision loss. Word finding difficulty is nearly resolved. Patient with no headache this morning, and denies numbness, tingling, dizziness, weakness, sensory change, pain, chest pressure, chest pain, shortness of breath at bedside. Review of Systems Review of Systems: All systems reviewed & are unremarkable except as noted in Subjective Physical Exam Physical Exam: General: A&Ox3. NAD. Cooperative. HEENT: Atraumatic, normocephalic. PERLAA. Vision/hearing grossly intact. +L bruit. No visual field cuts to confrontation. No facial asymmetry Pulm: CTAB A&P. -wheezes, -rales, -rhonchi. Symmetrical chest rise. No increased work of breathing. No respiratory distress. Cardiac: RRR, -mrg. Radial pulses intact and symmetrical. Abdominal: Nontender, nondistended, soft. BS present. Ext: Warm, dry. 5/5 bilat strenght. Sensation intact to soft touch in all 4 extremities. Results & Data Results & Data ([facility]) Vital Signs (Past 12 Hours) Vital Signs Temp Pulse Pulse Resp BP BP Pulse Ox 10/18/21 12:00 36.4 C L 70 18 119/73 97 10/18/21 07:44 81 18 163/94 H 96 10/18/21 07:05 87 10/18/21 03:00 36.6 C 71 18 121/71 97 O2 Del Method 10/18/21 12:00 Room Air 10/18/21 07:44 Room Air 10/18/21 07:05 10/18/21 03:00 Room Air PG Care Time/CCT Total # of Minutes Spent Total Time Spent with Patient: Total time spent is greater than 50% in coordination of care (as documented) at patient's floor/unit and/or counseling patient: Coding Level of Care Code 25312 Subseq Hosp Care Lvl 3 Diagnoses Stroke-like symptoms R29.90 Squamous cell carcinoma of base of tongue C01 Hyperlipidemia E78.5 Hypothyroidism E03.9 Hypothyroidism type: acquired Chronic kidney disease, stage 3a N18.3 Anemia D64.9 Biventricular ICD (implantable cardioverter-defibrillator) in place Z95.810 Cardiomyopathy I42.9 Gastroesophageal reflux disease K21.9 Esophagitis presence: without esophagitis Left carotid stenosis I65.22 (1) Hypothyroidism Hypothyroidism type: acquired Qualified Code(s): E03.9 - Hypothyroidism, unspecified (2) Gastroesophageal reflux disease Esophagitis presence: without esophagitis Qualified Code(s): K21.9 - Gastro- esophageal reflux disease without esophagitis
[2021-10-18 12:54] LABS: Appearance Urine Clear (Clear); Bilirubin Urine Negative (Negative); Blood Urine Negative (Negative); Color Urine Yellow; Glucose Urine UA Negative (Negative); Ketones Urine Negative (Negative); Leukocyte Esterase Urine Negative (Negative); Nitrite Urine Negative (Negative); Protein Urine Negative (Negative); Specific Gravity Urine > 1.045 (1.000-1.030); Urobilinogen Urine Negative (Negative)
--- NOTE | 2021-10-18 15:00 | Consultation ---
Date of Consultation October 18, 2021 Assessment & Plan (1) Left carotid stenosis: Pt with left hemispheric TIA/amaurosis sx. Upon review of his neck CTA, he appears to have severe L ICA stenosis with an area of ulcerated plaque. Pt discussed with Dr Corley. Recommends pt undergo L CEA. This has been tentativ eveline scheduled for OCTOBER 22. Would consider initiation of ASA/plavix if no contraindications. Procedure, risks, benefits and alternatives were discussed at length with the patient and his family present. Pt wishes to discuss with his before proceeding with surgery. If patient is discharged prior to Friday, will need to call [facility] on Friday for arrival time. Please call if needed. History of Present Illness Reason for Consultation: LICAS with TIA Attending Physician: William Gannon MD History of Present Illness 86 yo m with hx of prostate ca, CKD, SCC of tongue, gout, HTN, hyperlipidemia, hypothyroidism, anemia, DMII, cardiomyopathy, pacemaker, ICD in place, admitted with stroke like sx yesterday. Pt states he noted complete loss of L eye vision for about 5 minutes, and that he had similar sx about 6 months ago which lasted about 15 seconds. States he had difficulty finding words and mild confusion as well, but all of these sx have resolved. Denies ACEVES, fever, recent illness, chest pain, SOB, abd pain, N/V, rest pain, claudication, unilateral extremity weakness numbness or tingling, facial droop, other complaints. No prior knowledge of carotid stenosis in past. CTA neck demonstrates severe stenosis of L ICA with area of ulcerated plaque noted. Allergies Allergy/AdvReac Type Severity Reaction Status Date / Time spironolactone Allergy Severe Hypotension; Verified 10/17/21 15:26 [From Aldactone] Fatigue levofloxacin [From Levaquin] Allergy Intermediate rash at IV Verified 10/17/21 15:26 site rosuvastatin [From Crestor] AdvReac Unknown Elevated Verified 10/17/21 15: liver enzymes Home Medications Medication Instructions Recorded Confirmed Type omeprazole 20 mg capsule,delayed 20 mg PO BID PRN Acid Reflux 09/16/19 10/17/21 History release carvedilol 12.5 mg tablet 12.5 mg PO BID #180 tabs 04/20/21 10/17/21 Rx atorvastatin 20 mg tablet 20 mg PO HS 10/17/21 10/17/21 History coenzyme Q10 100 mg capsule (Co 100 mg PO DAILY 10/17/21 10/17/21 History Q-10) levothyroxine 150 mcg tablet 150 mcg PO DAILYBB 10/17/21 10/17/21 History magnesium oxide 400 mg PO UD 10/17/21 10/17/21 History Patient History Medical History Complete heart block Diabetes mellitus Resolved with weight loss. A1C 4.8 09/2019 Dilated cardiomyopathy Dysphagia History of congestive heart failure Malnutrition Prostate cancer Dr. Orta, Urologist in [place] follow patient Surgical History H/O umbilical hernia repair History of cataract surgery History of implantable cardioverter-defibrillator (ICD) placement History of tonsillectomy PEG (percutaneous endoscopic gastrostomy) status placed at [facility] 2018 S/P cholecystectomy S/P LASIK surgery of both eyes Family History Brother Prostate cancer Father , age 79 Multiple myeloma Mother , age 85 from "old age" No problems noted. 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 How many Children do You have: 2 other: 2 sons Feels Safe at Home: Yes caffeine: No during the past year weight has: decreased > 10 lbs Seatbelt Use: always Assistive Devices: None Review of Systems Review of Systems: All systems reviewed & are unremarkable except as noted in HPI & below Physical Exam Constitutional: WD/WN, vitals as above healthy appearing, cooperative and comfortable; not in distress Neck: trachea midline Respiratory: normal respiratory effort, lungs clear to auscultation Auscultation: + diminished lung sounds Cardiovascular: Rate/Rhythm: regular rate and regular rhythm Vessels: posterior tibial pulses present, dorsalis pedis pulses present and radial pulses present; + abnormal peripheral pulses Extremities: normal capillary refill; no edema Gastrointestinal (Abdomen): Inspection/Auscultation: abdomen normal to inspection and normal bowel sounds Percussion/Palpation: abdomen soft; abdomen nontender Musculoskeletal: no cyanosis or clubbing, extremities motor strength 5/5 Skin: no rashes, warm and dry Neurologic: moves all extremities and awake; no focal motor deficits and not confused Speech / Cognition: normal speech and normal cognition Psychiatric: A+Ox3, euthymic affect Results & Data ([facility]) Vital Signs (Past 12 Hours) Vital Signs Temp Pulse Pulse Resp BP BP Pulse Ox 10/18/21 12:00 36.4 C L 70 18 119/73 97 10/18/21 07:44 81 18 163/94 H 96 10/18/21 07:05 87 10/18/21 03:00 36.6 C 71 18 121/71 97 O2 Del Method 10/18/21 12:00 Room Air 10/18/21 07:44 Room Air 10/18/21 07:05 10/18/21 03:00 Room Air
[2021-10-18 15:59] VITALS: TEMP 98.2; O2SAT 95
[2021-10-18 16:52] VITALS: BP 163/94; PULSE 73
--- NOTE | 2021-10-18 17:02 | Discharge Summary ---
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 Patient was actually seen in our ED just 3 days ago on 10/14 for fatigue, confusion and slurred speech with word finding difficulty. He had a benign neuro exam, head CT was unremarkable and labs were only significant for low magnesium. No evidence of ACS or infection. It was recommended that patient be admitted for a comprehensive neuro work-up, however he adamantly refused admission at that time. Today, he presents once again because he is feeling generally slow and again having difficulty with word finding, which reports never really went away since Friday. Additionally, patient states he had a left-sided sharp headache rated 8/10 last evening for which he took 3 Tylenol had full resolution. He also had an episode of 5 minutes of total vision loss in his left eye 1 day ago, which also occurred 6 months ago. He is otherwise without any focal/tingling, visual changes, headache, nausea, vomiting, dizziness. No other complaints. Labs today significant for a decreased WBC which is also noted 3 days ago, stable anemia, T bili minimally elevated at 1.1. No electrolyte abnormalities. TSH low at 0.200. Principal Diagnosis Transient monocular vision loss, altered mental status Left carotid stenosis Discharge Exam General: A&Ox3. NAD. Cooperative. HEENT: Atraumatic, normocephalic. PERLAA. Vision/hearing grossly intact. +L bruit. No visual field cuts to confrontation. No facial asymmetry Pulm: CTAB A&P. -wheezes, -rales, -rhonchi. Symmetrical chest rise. No increased work of breathing. No respiratory distress. Cardiac: RRR, -mrg. Radial pulses intact and symmetrical. Abdominal: Nontender, nondistended, soft. BS present. Ext: Warm, dry. 5/5 bilat strenght. Sensation intact to soft touch in all 4 extremities. Discharge Data Allergies Allergy/AdvReac Type Severity Reaction Status Date / Time spironolactone Allergy Severe Hypotension; Verified 10/17/21 15:26 [From Aldactone] Fatigue levofloxacin [From Levaquin] Allergy Intermediate rash at IV Verified 10/17/21 15:26 site rosuvastatin [From Crestor] AdvReac Unknown Elevated Verified 10/17/21 15:26 liver enzymes Consultations 10/17/21 17:48 Consult Neurology Routine 10/18/21 12:31 Consult Vascular Surgery Routine Procedures Performed Operation Date: 10/22/21 09:20 <No data on this case meets the specified criteria> Ordered Studies 10/18/21 09:05 CT angio head w con Stat CT angio neck with con Stat CT head/brain wo con Routine Hospital Course (1) Stroke-like symptoms: Janes is an 86-year-old male with a history of carotid stenosis and squamous cell carcinoma of the tongue who presented with his second episode of transient monocular left vision loss and confusion. CT on admission did not show any strokelike pathology. MRI was not able to be completed due to an incompatible ICD. Follow-up CT angio and CT head with contrast due to history of cancer did not show any brain metastasis, but was revealing for severe hemodynamically significant stenosis of the left internal carotid artery. Vascular was consulted, recommended dual antiplatelet therapy and short interval CEA. Patient was tentatively scheduled for CEA on 10/22/2021. No other acute medical management until that time other than addition of antiplatelets, patient was felt to be okay for discharge and strict return precautions and 30% risk of recurrent stroke in following weeks was discussed with patient who is in understanding of this. Patient and family did reach out to make phone calls to other vascular providers with whom their family has had experience in the past, discussed that this is reasonable and patient will have chart copied for assessment but recommended that he keep the CEA as scheduled unless another short interval procedure was able to be confirmed in the interim due to his high risk of stroke. Patient family agreeable and understands this, and will call either Friday for scheduling details or with any updates in the interim. To do as outpatient: 1. Continue dual antiplatelet therapy with aspirin 81 mg daily, Plavix 75 mg daily 2. Vascular follow-up 10/22/2021 for surgical treatment of symptomatic left carotid stenosis 3. Follow-up to PCP 4. Follow-up TTE final read Left carotid stenosis with ipsilateral vision loss, word finding difficulties transiently - Word finding difficulty, feeling generally "slow" since Friday, 10/14 with reports of transient total left eye vision loss 1 day ago for 5 minutes, which also occurred 6 months ago in the same eye. - Concern would be CVA vs metastatic disease given his recent history of SCC cancer of tongue in 2018 with pulm. met dz in 2019 s/p wedge resection. - Patient not a candidate for tPA given his very mild symptoms plus onset of symptoms 3 days ago. - CT w/o contrast on 10/14 without evidence of acute CVA. Patient denied admission and further work-up at that time. - MRI not able to be obtained due to incompatible ICD -CTA Neck: A 3 vessel aortic arch is shown. There is severe, hemodynamically significant stenosis of the left internal carotid artery just past its origin with greater than 90% stenosis. Atherosclerosis is seen in the right carotid bulb without hemodynamically significant stenosis. The common carotid, external carotid, cervical segments of the internal carotid arteries, and the cervical segments of the vertebral arteries are patent without hemodynamically significant stenosis. The left vertebral artery is dominant. Partially visualized is origin of the left UPHOLSTERER INSIDE. -CTA-H: 1. No acute intracranial abnormality. 2. No significant stenosis, occlusion, or aneurysm within the barrow of [place]. - Echo pending - LDL 66. Atorvastatin 20mg - A1C 5.1% - Clinically significant L cartoid stenosis with ipsilateral transient vision loss. Vascular consulted. - +ASA 81mg daily (2) Squamous cell carcinoma of base of tongue: - Diagnosed in 2017, treated with BOWSTRING MAKER completed 04/29/2018. Follows with [facility] as well as MD in [place] (patient lives there during winter months). - 09/18/19--> developed a left lower lobe pulmonary nodule identified on PET-CT 09/18/2019. 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 - A new LLL nodule was identified on CT scanning from August 2020, however on follow-up scan in November 2020, it had resolved. - Neuro work-up as above. No evidence of brain mets. (3) Hyperlipidemia: - Continue atorvastatin 20 --> LDL well controlled on lipid panel (4) Hypothyroidism: - Continue levothyroxine 50 mcg daily. (5) Chronic kidney disease, stage 3a: - PCP note from 01/18 notes this diagnosis, reports creatinine baseline 1.261.86 On admission creatinine of approximately 1 Creatinine remains 0.96, trend daily, avoid nephrotoxins were able (6) Anemia: - Hgb at baseline. No acute bleeding. (7) Biventricular ICD (implantable cardioverter-defibrillator) in place: - 2/2 complete heart block. MRI initially reported as compatible, on company call is not compatible. CTA obtained instead as above (8) Cardiomyopathy: - Per cardiology note, most likely resolved years ago with placement of ICD. No recent echocardiograms in our system. - Continue carvedilol 12.5 mg twice daily. - Echo pending (9) Gastroesophageal reflux disease: - Omeprazole prn. (10) Left carotid stenosis: Plan - Admit to med/tele - SCDs for VTE ppx. -Full Code. Total Time Total Time Spent Total Time Spent (In Minutes): Time spend day of discharge 70 minutes including direct patient care, documentation, review of labs and images, and coordination of care. Discharge Plan Discharge Items Patient Disposition: Home - Self-Care Reason For Visit: STROKE LIKE SYMPTOMS Discharge Diagnosis: Symptomatic Carotid Stenosis, Ipsilateral Monocular Transient Vision Loss Activity: Resume your previous activity Non-emergency contact: Primary Care Provider and Surgeon Call non-emergency contact if: you have any medication questions and your symptoms worsen Follow-up/Referrals: Zaire Franks MD [Primary Care Provider] - Pineda Corley MD [Physician] - Diet: Heart Healthy Addtl Attending Provider Instructions: You are seen in the hospital for concerns of speech difficulty and transient monocular vision loss. You are found to have severe stenosis/blockage of your left carotid artery. You are seen by vascular surgery and neurology during admission. It was recommended that you have a carotid endarterectomy as you are at very high risk of further strokes and strokelike events. You have been started on aspirin and Plavix, antiplatelet medications to help prevent stroke. A carotid endarterectomy has been tentatively scheduled for you for October 22. Please call the [facility] switchboard [phone] to discuss arrival time and scheduling on Friday evening prior to this. You have been prescribed a medication, aspirin. Please take a baby aspirin 81 mg daily. You have also been prescribed Plavix, another antiplatelet medicine. Please also take Plavix 75 mg by mouth daily. Follow-up appointment is being scheduled for you with your primary care provider as noted above. If you do not receive a call to confirm scheduling within the next 24 hours, please contact their office directly at the number above If you develop any new or worsening symptoms including fever, chills, sweats, chest pain, chest pressure, difficulty breathing, uncontrolled nausea/vomiting, rash, vision loss, wheezing, passing out or nearly passing out, bleeding, black/bloody bowel movements, or other new or concerning symptoms please call your primary care physician, or call 911 for re-evaluation in the emergency department if you are very concerned. Pending Studies at Discharge: No Stand-Alone Forms: Medications to Prevent Stroke, My [facility] BRAIN, Smoking Cessation Medications and DC Order Prescriptions: New aspirin 81 mg Tablet,Delayed Release (Dr/Ec) 81 mg PO QAM Qty: 30 0RF clopidogrel 75 mg tablet 75 mg PO DAILY Qty: 30 0RF Continued omeprazole 20 mg capsule,delayed release(DR/EC) 20 mg PO BID PRN (Reason: Acid Reflux) carvedilol 12.5 mg tablet 12.5 mg PO BID Qty: 180 3RF levothyroxine 150 mcg tablet 150 mcg PO DAILYBB coenzyme Q10 [Co Q-10] 100 mg Capsule 100 mg PO DAILY atorvastatin 20 mg tablet 20 mg PO HS magnesium oxide 200 mg magnesium tablet,chewable 400 mg PO UD Rx Instructions: Two tabs twice daily for 5 days then two tabs once daily. Discharge Orders: Discharge Order (Routine); Ordered 10/18/21 Ordered By: William Gannon Admission Data Admit Date/Time: 10/17/21 15:59 Attending Provider: William Gannon Admit Provider: William Gannon Primary Care Provider: Zaire Franks Other Providers: Mariano Scruggs ; Pineda Corley Other Interventions: Discharge Summary Assessment (RN) Last Done: 10/18/21 16:51 Coding Level of Care Code D/C DAY MANAGEMENT >30 MINS Diagnoses Stroke-like symptoms R29.90 Squamous cell carcinoma of base of tongue C01 Hyperlipidemia E78.5 Hypothyroidism E03.9 Hypothyroidism type: acquired Chronic kidney disease, stage 3a N18.3 Anemia D64.9 Biventricular ICD (implantable cardioverter-defibrillator) in place Z95.810 Cardiomyopathy I42.9 Gastroesophageal reflux disease K21.9 Esophagitis presence: without esophagitis Left carotid stenosis I65.22
[2021-10-18] MEDS ORDERED: STROKE PATIENT DISCHARGE STA (17:03)
--- NOTE | 2021-10-18 17:31 | Pharmacy Report ---
Pharmacist Stroke Counseling - Date of Service October 18, 2021 - Scope: Pharmacy has been consulted to provide medication discharge counseling for this patient admitted with [ischemic stroke] [hemorrhagic stroke] [transient ischemic attack] as per the Pharmacist Discharge Counseling for Stroke Patients Yandy portillo - Medications on Discharge: Home Medications Medication Instructions Recorded Confirmed omeprazole 20 mg capsule,delayed 20 mg PO BID PRN Acid Reflux 09/16/19 10/17/21 release atorvastatin 20 mg tablet 20 mg PO HS 10/17/21 10/17/21 coenzyme Q10 100 mg capsule (Co 100 mg PO DAILY 10/17/21 10/17/21 Q-10) levothyroxine 150 mcg tablet 150 mcg PO DAILYBB 10/17/21 10/17/21 magnesium oxide 400 mg PO UD 10/17/21 10/17/21 New Rx's Medication Instructions Recorded carvedilol 12.5 mg tablet 12.5 mg PO BID #180 tabs 04/20/21 aspirin 81 mg tablet,delayed 81 mg PO QAM #30 tabs 10/18/21 release clopidogrel 75 mg tablet 75 mg PO DAILY #30 tabs 10/18/21 - Action: The above medications, specifically ones for stroke treatment/prophylaxis, have been reviewed in detail with the patient and/or patient sales representative printing paper(s) prior to discharge. This includes indication, common adverse reactions, drug interactions, and medication administration. Medication counseling has been employed using the teach-back method to ensure understanding. - Outcome: The patient and/or patient sales representative printing paper(s) have demonstrated understanding of the medications. 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 He is very knowledgeable of antiplatelet medication therapy. Thank you for allowing pharmacy to be involved in the care of this patient. Please call [phone] with any additional questions
--- NOTE | 2021-10-18 18:18 | XCELERA ---
[id number]
[2021-10-19] MEDS ORDERED: ASPIRIN 81 MG ECTAB PO SCH (09:00)
[2021-10-22] MEDS ORDERED: MAGNESIUM OXIDE 400 MG TAB PO SCH (09:00)
--- NOTE | 2021-10-23 15:11 | Coding Query ---
CODING QUERY To promote full compliance with coding requirements relating to patient care, provider participation is requested in all cases of brush loader and handle attacher uncertainty. Please assist us with the question(s) below: Coding Question(s): There was documentation in the record of concern for CVA and documentation on the Discharge Summary was: "Stroke-like symptoms: Janes is an 86-year-old male with a history of carotid stenosis and squamous cell carcinoma of the tongue who presented with his second episode of transient monocular left vision loss and confusion. CT on admission did not show any strokelike pathology. MRI was not able to be completed due to an incompatible ICD. Follow-up CT angio and CT head with contrast due to history of cancer did not show any brain metastasis, but was revealing for severe hemodynamically significant stenosis of the left internal carotid artery. Vascular was consulted, recommended dual antiplatelet therapy and short interval CEA. Patient was tentatively scheduled for CEA on 10/22/2021. No other acute medical management until that time other than addition of antiplatelets, patient was felt to be okay for discharge and strict return precautions and 30% risk of recurrent stroke in following weeks was discussed with patient who is in understanding of this.". It is not clear if the possible CVA/Stroke was ruled-out or was still possible. Please specify below, in your clinical opinion, regarding possible CVA/Stroke. ( X ) Possible CVA/Stroke ( ) Possible CVA/Stroke is Ruled-Out ( ) Other: Please Specify Physician's Response(s): Thank you Evy Miles Principal Diagnosis: "that condition established after study, to be chiefly responsible for occasioning the admission of the patient to the hospital for care." Co-Existing Principal Diagnosis: "when two or more diagnoses equally meet the criteria for principal diagnosis as determined by the circumstances of admission, diagnostic work up, and/or therapy provided, and the Alphabetic Index, Tabular List, or another coding guideline does not provide sequencing direction, any one of the diagnoses may be sequenced first." "When the physician has documented what appears to be a current diagnosis in the body of the record, but has not included the diagnosis in the final diagnostic statement, the physician should be asked whether the diagnosis should be added." (Source [facility]oding [facility] 2 QTR90. p3-4) MTDD
== END 2021-10-18 18:05 | disposition home or self-care (01) | DRG 65 ==
LOC: ED 12:42 → EDINP 15:59 → 2N 17:59

== ENCOUNTER 2021-10-22 07:22 | Inpatient (IN) ==
--- NOTE | 2021-10-19 10:25 | Anesthesiology Consultation ---
Date of Service October 19, 2021 Assessment & Plan (1) Encounter for pre-operative examination: Plan - check BSG am DOS. - Patient acceptable to proceed, to anesthesiologist discretion if additional testing needed DOS. 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 - ICD: Medtronic with [place] pacer leads per device information sheet and report--pulse generator change 12/28/2020 and last report at that time. Per Roxana with cardiology office, device is [employer]tronic so rep will need to be from [employer]. [employer] pacer rep contacted by OR as rep will be needed DOS per discussion with Dr. Avendano. - thrombocytopenia: 95k, extending to 2019 per chart. CBC with diff not needed DOS per Dr. Avendano. 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 CT on admission did not show any strokelike pathology. MRI was not able to be completed due to an incompatible ICD. Follow-up CT angio and CT head with contrast due to history of cancer did not show any brain metastasis, but was revealing for severe hemodynamically significant stenosis of the left internal carotid artery. Vascular was consulted, recommended dual antiplatelet therapy and short interval CEA. Patient was tentatively scheduled for CEA on 10/22/2021. No other acute medical management until that time other than addition of antiplatelets, patient was felt to be okay for discharge and strict return precautions and 30% risk of recurrent stroke in following weeks was discussed with patient who is in understanding of this. 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 Follows with [facility] as well as MD in [place] (patient lives there during winter months). - 09/18/19--> developed a left lower lobe pulmonary nodule identified on PET-CT 09/18/2019. 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 - A new LLL nodule was identified on CT scanning from August 2020, however on follow-up scan in November 2020, it had resolved..." - COVID screening: Per club lounge attendant on 10/19/2021: Travel screen negative, no known COVID-19 positive contacts or current COVID-19 related symptoms in past 2 weeks. Accepting recent COVID test. Chart Review Chart Review: Acceptable Risk for Surgery and Patient NOT seen in Pre Admission Testing History Surgery Operation Date: 10/22/21 09:20 Proposed Procedures p Left Carotid Endarterectomy - Pineda Corley MD Operation Date: 10/22/21 09:20 Proposed Procedures p Left Carotid Endarterectomy - Pineda Corley MD Height/Weight Height: 6 ft Weight: 92 kg Allergies Allergy/AdvReac Type Severity Reaction Status Date / Time spironolactone Allergy Severe Hypotension; Verified 10/19/21 12:04 [From Aldactone] Fatigue levofloxacin [From Levaquin] Allergy Intermediate rash at IV Verified 10/19/21 12:04 site rosuvastatin [From Crestor] AdvReac Unknown Elevated Verified 10/19/21 12:04 liver enzymes Medications Home Medications Medication Instructions Recorded Confirmed Last Taken omeprazole 20 mg capsule,delayed 20 mg PO BID PRN Acid Reflux 09/16/19 10/19/21 Unknown release carvedilol 12.5 mg tablet 12.5 mg PO BID #180 tabs 04/20/21 10/19/21 10/17/21 am atorvastatin 20 mg tablet 20 mg PO HS 10/17/21 10/19/21 10/16/21 coenzyme Q10 100 mg capsule (Co 100 mg PO QAM 10/17/21 10/19/21 10/17/21 Q-10) levothyroxine 150 mcg tablet 150 mcg PO QAM 10/17/21 10/19/21 10/17/21 magnesium oxide 400 mg PO QAM 10/17/21 10/19/21 10/17/21 am aspirin 81 mg tablet,delayed 81 mg PO QAM #30 tabs 10/18/21 10/19/21 Unknown release clopidogrel 75 mg tablet 75 mg PO QAM 10/19/21 10/19/21 Unknown Past Medical History Medical History (Updated 10/19/21 @ 13:09 by Zo Rosales PA-C) Abnormal PSA follows with urology in [place]. Complete heart block s/p ICD per records [employer] with [employer] [place] leads Diabetes mellitus Resolved with weight loss. A1C 4.8 09/2019 - no issue Dilated cardiomyopathy EF 55-60% Dysphagia Gout History of congestive heart failure EF 55-60% Hx of tongue cancer 2018 and had chemo and radiation Hyperlipidemia Hypertension Hypothyroidism Left carotid stenosis greater than 90% stenosis LVH (left ventricular hypertrophy) severe Past Family History Family History Brother Prostate cancer Father , age 79 Multiple myeloma Mother , age 85 from "old age" No problems noted. Denies family history of Ovarian cancer Myocardial infarction Breast cancer Colorectal cancer Past Surgical History Surgical History (Updated 10/19/21 @ 12:29 by Annie Haynes RN) H/O umbilical hernia repair History of cataract surgery left and right History of implantable cardioverter-defibrillator (ICD) placement has Pacemaker/defib combo, placed 2005 for complete heart block. medtronic History of lung surgery had a nodule removed. 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 wedge resection in [place]. History of tonsillectomy History of uvulectomy Hx of colonoscopy Hx of esophagogastroduodenoscopy PEG (percutaneous endoscopic gastrostomy) status placed at [facility] 2017 due to tongue cancer and then it was removed S/P cholecystectomy S/P LASIK surgery of both eyes Social History Smoking Status: Never smoker tobacco type: cigarettes Smoking cigarettes per day: has smoked socially for many years, never heavy Hx Alcohol Use: Yes Alcohol type: hard liquor alcohol intake frequency: 0-2 drinks per day Hx Substance Use: No substance use type: does not use Lab Results Anesthesia Preop Results Results Anesthesia Widget: WBC 2.74 K/ul (4.8-10.8) L 10/18/21 Hgb 12.2 g/dl (14.0-18.0) L 10/18/21 Hct 35.6 % (40.1-51.0) L 10/18/21 Plt 95 K/uL (130-400) L 10/18/21 Na 140 mmol/L (136-145) 10/18/21 K 3.9 mmol/L (3.5-5.1) 10/18/21 Cl 108 mmol/L (98-107) H 10/18/21 CO2 24 mmol/L (21-32) 10/18/21 BUN 16 mg/dl (6-23) 10/18/21 Creat 0.96 mg/dl (0.6-1.4) 10/18/21 Glucose Level 85 mg/dl (70-99(Fasting)) 10/18/21 PT 11.0 Seconds (9.0-12.0) 10/17/21 PTT 26.1 Seconds (21.0-31.0) 10/17/21 INR 1.0 (0.9-1.1) 10/17/21 TSH 0.200 uIu/ml (0.300-4.500) L 10/17/21 HA1c 5.1 % (4.5-5.6) 10/18/21 Urine Color Yellow 10/17/21 Urine Appearance Clear (Clear) 10/17/21 Urine pH 7.0 (4.5-7.5) 10/17/21 Urine Specific [place] > 1.045 (1.000-1.030) H 10/17/21 Urine Protein Negative (Negative) 10/17/21 Urine Glucose (UA) Negative (Negative) 10/17/21 Urine Ketones Negative (Negative) 10/17/21 Urine Blood Negative (Negative) 10/17/21 Urine Nitrite Negative (Negative) 10/17/21 Urine Bilirubin Negative (Negative) 10/17/21 Urine Urobilinogen Negative (Negative) 10/17/21 Urine Leukocyte Esterase Negative (Negative) 10/17/21 Urine WBC (Auto) 5-10 /hpf (0-5) H 10/14/21 Urine RBC (Auto) 0-4 /hpf (0-4) 10/14/21 Urine Hyaline Casts (Auto) 0 /lpf (0-5) 10/14/21 Urine Epithelial Cells (Auto) 5-10 /lpf (0-5) H 10/14/21 Urine Bacteria (Auto) Negative (Negative) 10/14/21 SARS-CoV-2, RNA, NAAT NEGATIVE (NEGATIVE) 10/17/21 Testing Electrocardiogram Date: 10/17/21 AV dual paced rhythm, rate 75 bpm Biventricular pacemaker detected Chest X-Ray Date: 10/14/21 1. Cardiomegaly and AICD without radiographic evidence of congestive failure. 2. No airspace consolidation or large pleural effusion is identified. Echocardiogram Date: 10/18/21 EF 55-60% No regional wall motion abnormalities Severe cLVH Moderate LA dilation Sclerotic aortic valve without significant stenosis No ASD visualized Normal estimated RVSP Type 2 diastolic dysfunction Other Testing Neck CTA 10/18/21 There is severe, hemodynamically significant stenosis of the left internal carotid artery just past its origin with greater than 90% stenosis. Atherosclerosis is seen in the right carotid bulb without hemodynamically significant stenosis. The common carotid, external carotid, cervical segments of the internal carotid arteries, and the cervical segments of the vertebral arteries are patent without hemodynamically significant stenosis. The left vertebral artery is dominant. Partially visualized is origin of the left VICE PRESIDENT SALES. IMPRESSION: Hemodynamically significant stenosis in the left internal carotid artery. Multifocal atherosclerotic disease without other hemodynamically significant foci of stenosis noted. Head CT and CTA 10/17/21 Mild mucosal thickening within the ethmoid air cells and right maxillary sinus. The mastoid air cells are clear. The calvarium and skull base are intact. Mild atrophy and microvascular ischemic changes are again noted. There is no mass, hematoma, midline shift, acute infarct. HEAD CTA: The major dural venous sinuses are patent. Moderate calcified plaque within the bilateral carotid siphons. The distal right vertebral artery is atretic and does not communicate with the basilar artery. The basilar artery is fed through the dominant left vertebral artery which is widely patent. Mild irregularity within the basilar artery and cerebral arteries without significant stenosis, occlusion, or aneurysm. IMPRESSION: 1. No acute intracranial abnormality. 2. No significant stenosis, occlusion, or aneurysm within the [place]. Chest CT 09/07/21 Unchanged ill-defined hypodense lesion within the right paravertebral tissues on image 243 measures 1.9 cm. Is favored to be benign. The heart is normal in size. Left subclavian pacer. Extensive coronary artery calcifications. There is atherosclerosis of the thoracic aorta without aneurysm or dissection. Patency of the imaged great vessels. Unremarkable pulmonary artery. No pneumothorax, pleural effusion, airspace consolidation or overt pulmonary edema. Scattered calcified pulmonary granulomata redemonstrated. Chronic postoperative changes within the left lower lobe suggestive of prior wedge resection. There are no suspicious pulmonary nodules or masses identified. The central airways are patent Small hiatal hernia. Colonic diverticulosis. Mild fecal retention. Varicosities of the right chest wall are noted along with gynecomastia. No acute fracture. Healed chronic appearing anterior right-sided rib fractures. Upper thoracic dextroscoliosis. No destructive bone lesions. IMPRESSION: 1. No acute intrathoracic abnormality. 2. No adenopathy or evidence of thoracic metastatic disease. 3. Small hiatal hernia. 4. Chronic findings as above.
[~2021-10-22 07:22] MED LIST: LR 15ML/HR IV SCH; PHENYLEPHRINE HCL 10 MG/ML VIAL ONE; ceFAZolin 1000MG 1,000 MG/7.5 ML SYR IV SCH
--- NOTE | 2021-10-22 07:41 | History & Physical Report ---
Date of Service October 22, 2021 History of Present Illness Primary Care Provider: Zaire Franks MD [facility], [id number] Consultation Signed Patient:JUSTIN JALLOH Admit Date:10/17/21 MR#:[id number] Att Phy:William Gannon MD Acct ID:[id number] Bridget Phy:Zaire Franks MD Date:1935 Fam Phy: Age:86 Location:2N Sex:M Room/Bed:N275-1 cc: ~ *NOTICE TO RECEIVING REPUBLICAN/AGENCY This information is strictly Confidential and protected under [place] law. [place] law prohibits you from making any further disclosure of this information unless further disclosure is expressly permitted by the written consent of the person to whom it pertains or is authorized by law. A general authorization for the release of medical or other information is not sufficient for this purpose. Hospital accepts no responsibility if the information is made available to any other person, INCLUDING THE PATIENT. Date of Consultation October 18, 2021 Assessment & Plan (1) Left carotid stenosis: Pt with left hemispheric TIA/amaurosis sx. Upon review of his neck CTA, he appears to have severe L ICA stenosis with an area of ulcerated plaque. Pt discussed with Dr Corley. Recommends pt undergo L CEA. This has been tentatively scheduled for OCTOBER 22. Would consider initiation of ASA/plavix if no contraindications. Procedure, risks, benefits and alternatives were discussed at length with the patient and his family present. Pt wishes to discuss with his before proceeding with surgery. If patient is discharged prior to Friday, will need to call [facility] on Friday for arrival time. Please call if needed. History of Present Illness Reason for Consultation: LICAS with TIA Attending Physician: William Gannon MD History of Present Illness 86 yo m with hx of prostate ca, CKD, SCC of tongue, gout, HTN, hyperlipidemia, hypothyroidism, anemia, DMII, cardiomyopathy, pacemaker, ICD in place, admitted with stroke like sx yesterday. Pt states he noted complete loss of L eye vision for about 5 minutes, and that he had similar sx about 6 months ago which lasted about 15 seconds. States he had difficulty finding words and mild confusion as well, but all of these sx have resolved. Denies ACEVES, fever, recent illness, chest pain, SOB, abd pain, N/V, rest pain, claudication, unilateral extremity weakness numbness or tingling, facial droop, other complaints. No prior knowledge of carotid stenosis in past. CTA neck demonstrates severe stenosis of L ICA with area of ulcerated plaque noted. Allergies Allergy/AdvReac Type Severity Reaction Status Date / Time spironolactone Allergy Severe Hypotension; Verified 10/17/21 15:26 [From Aldactone] Fatigue levofloxacin [From Levaquin] Allergy Intermediate rash at IV Verified 10/17/21 15:26 site rosuvastatin [From Crestor] AdvReac Unknown Elevated Verified 10/17/21 15:26 liver enzymes Home Medications Medication Instructions Recorded Confirmed Type omeprazole 20 mg capsule,delayed 20 mg PO BID PRN Acid Reflux 09/16/19 10/17/21 History release carvedilol 12.5 mg tablet 12.5 mg PO BID #180 tabs 04/20/21 10/17/21 Rx atorvastatin 20 mg tablet 20 mg PO HS 10/17/21 10/17/21 Histo ry coenzyme Q10 100 mg capsule (Co 100 mg PO DAILY 10/17/21 10/17/21 History Q-10) levothyroxine 150 mcg tablet 150 mcg PO DAILYBB 10/17/21 10/17/21 Hi story magnesium oxide 400 mg PO UD 10/17/21 10/17/21 History Patient History Medical History Complete heart block Diabetes mellitus Resolved with weight loss. A1C 4.8 09/2019Dilated cardiomyopathy Dysphagia History of congestive heart failure Malnutrition Prostate cancer Dr. Orta, Urologist in [place] follow patient Surgical History H/O umbilical hernia repair History of cataract surgery History of implantable cardioverter-defibrillator (ICD) placement History of tonsillectomy PEG (percutaneous endoscopic gastrostomy) status placed at [facility] 2018S/P cholecystectomy S/P LASIK surgery of both eyes Family History Brother Prostate cancerFather , age 79 Multiple myelomaMother , age 85 from "old age" No problems noted. 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 How many Children do You have: 2 other: 2 sons Feels Safe at Home: Yes caffeine: No during the past year weight has: decreased > 10 lbs Seatbelt Use: always Assistive Devices: None Review of Systems Review of Systems: All systems reviewed & are unremarkable except as noted in HPI & below Physical Exam Constitutional: WD/WN, vitals as above healthy appearing, cooperative and comfortable; not in distress Neck: trachea midline Respiratory: normal respiratory effort, lungs clear to auscultation Auscultation: + diminished lung sounds Cardiovascular:L Rate/Rhythm: regular rate and regular rhythm Vessels: posterior tibial pulses present, dorsalis pedis pulses present and radial pulses present; + abnormal peripheral pulses Extremities: normal capillary refill; no edema Gastrointestinal (Abdomen): Inspection/Auscultation: abdomen normal to inspection and normal bowel sounds Percussion/Palpation: abdomen soft; abdomen nontender Musculoskeletal: no cyanosis or clubbing, extremities motor strength 5/5 Skin: no rashes, warm and dry Neurologic: moves all extremities and awake; no focal motor deficits and not confused Speech / Cognition: normal speech and normal cognition Psychiatric: A+Ox3, euthymic affect Results & Data ([facility]) Vital Signs (Past 12 Hours) Vital Signs Temp Pulse Pulse Resp BP BP Pulse Ox 10/18/21 12:00 36.4 C L 70 18 119/73 97 10/18/21 07:44 81 18 163/94 H 96 10/18/21 07:05 87 10/18/21 03:00 36.6 C 71 18 121/71 97 O2 Del Method 10/18/21 12:00 Room Air 10/18/21 07:44 Room Air 10/18/21 07:05 10/18/21 03:00 Room Air Signed By: <Electronically signed by Linda Montenegro PA-C> 10/18/21 1510 <Electronically signed by Pineda Corley MD> 10/19/21 0809 Created:10/18/21 1455 The status of this report isSigned. Draft = Not yet reviewed or approved by Medical Physician. Signed = Reviewed and approved by Medical Physician. Allergies Allergy/AdvReac Type Severity Reaction Status Date / Time spironolactone Allergy Severe Hypotension; Verified 10/19/21 12:04 [From Aldactone] Fatigue levofloxacin [From Levaquin] Allergy Intermediate rash at IV Verified 10/19/21 12:04 site rosuvastatin [From Crestor] AdvReac Unknown Elevated Verified 10/19/21 12:04 liver enzymes Home Medications Medication Instructions Recorded Confirmed Type omeprazole 20 mg capsule,delayed 20 mg PO BID PRN Acid Reflux 09/16/19 10/19/21 History release carvedilol 12.5 mg tablet 12.5 mg PO BID #180 tabs 04/20/21 10/19/21 Rx atorvastatin 20 mg tablet 20 mg PO HS 10/17/21 10/19/21 History coenzyme Q10 100 mg capsule (Co 100 mg PO QAM 10/17/21 10/19/21 History Q-10) levothyroxine 150 mcg tablet 150 mcg PO QAM 10/17/21 10/19/21 History magnesium oxide 400 mg PO QAM 10/17/21 10/19/21 History aspirin 81 mg tablet,delayed 81 mg PO QAM #30 tabs 10/18/21 10/19/21 Rx release clopidogrel 75 mg tablet 75 mg PO QAM 10/19/21 10/19/21 History Past Med/Surg History Medical History (Updated 10/20/21 @ 00:08 by Background Daemon) Abnormal PSA follows with urology in [place]. Acute confusion Complete heart block s/p ICD per records [employer] with [employer] [place] leads Diabetes mellitus Resolved with weight loss. A1C 4.8 09/2019 - no issue Dilated cardiomyopathy EF 55-60% Dysphagia Gout History of congestive heart failure EF 55-60% Hx of tongue cancer 2017 and had chemo and radiation Hyperlipidemia Hypertension Hypothyroidism Left carotid stenosis greater than 90% stenosis LVH (left ventricular hypertrophy) severe Surgical History (Updated 10/19/21 @ 12:29 by Annie Haynes RN) H/O umbilical hernia repair History of cataract surgery left and right History of implantable cardioverter-defibrillator (ICD) placement has Pacemaker/defib combo, placed 2005 for complete heart block. medtronic History of lung surgery had a nodule removed. 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 wedge resection in [place]. History of tonsillectomy History of uvulectomy Hx of colonoscopy Hx of esophagogastroduodenoscopy PEG (percutaneous endoscopic gastrostomy) status placed at [facility] 2017 due to tongue cancer and then it was removed S/P cholecystectomy S/P LASIK surgery of both eyes Family History Brother Prostate cancer Father , age 79 Multiple myeloma Mother , age 85 from "old age" No problems noted. Denies family history of Ovarian cancer Myocardial infarction Breast cancer Colorectal cancer Social History Smoking Status: Former smoker Years Smoked: 20; Cigarettes Per Day: has smoked socially for many years, never heavy; Smoking End Date: smoked heavily for many years; Second Hand Exposure: No; Do You Dip or Chew Tobacco: No; Tobacco Cessation Education Requested by Patient: No Hx Alcohol Use: Yes Alcohol type: hard liquor Hx Substance Use: No Preferred Language: Rwandan Communication Ability: Effective Visual Impairment: No Limitations Hearing Ability: Normal Desk Assistant Required: No Beliefs That Will Affect Care: None marital status: Current Living Situation: Spouse 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
[2021-10-22 08:30] LABS: BUN Creatinine Ratio 18.3 (10-20); Calcium 9.2 mg/dl (8.5-10.1); Creatinine Clr Calc Pharmacy 63.1 ml/min; Est GFR (African American) 76.1 ml/min; Est GFR (Non-African American) 65.6 ml/min; Potassium 4.4 mmol/L (3.5-5.1)
--- NOTE | 2021-10-22 08:58 | History & Physical Bridge Note ---
Date of Service October 22, 2021 History & Physical Bridge Note Patient here for a left carotid endarterectomy. I have discussed the risks options and benefits of the procedure with the patient. The patient understands the risks options and benefits and agrees to the procedure. I have examined the patient, reviewed the History & Physical and in the interval since the performance of the History & Physical I have noted the following changes of clinical significance: no changes noted
[2021-10-22] MEDS ORDERED: NITROGLYCERIN 5 MG/ML 10 ML VIAL ONE (09:18)
[2021-10-22] MEDS ORDERED: DEXAMETHASONE SOD INJ 4 MG/ML VIAL ONE (09:18)
[2021-10-22] MEDS ORDERED: ePHEDrine sulfate 50 MG/ML AMP ONE (09:18)
[2021-10-22] MEDS ORDERED: ONDANSETRON INJ 2 MG/ML 2 ML VIAL ONE (09:18)
[2021-10-22] MEDS ORDERED: HEPARIN SOD (PORCINE) 1000 UNIT/ML ONE (09:18)
[2021-10-22] MEDS ORDERED: NEOSTIGMINE METHYLSULFATE 1 MG/ML 10ML VIAL ONE (09:18)
[2021-10-22] MEDS ORDERED: GLYCOPYRROLATE 0.2 MG/ML VIAL ONE (09:18)
[2021-10-22] MEDS ORDERED: PROPOFOL IV EMULSION 10 MG/ML 20 ML VIAL IV ONE (09:18)
[2021-10-22] MEDS ORDERED: ROCURONIUM BROMIDE 10 MG/ML 5 ML VIAL IV ONE (09:18)
[2021-10-22] MEDS ORDERED: fentaNYL citrate 100 MCG/2 ML VIAL ONE ×2 (09:18→10:15)
[2021-10-22] MEDS ORDERED: LIDOCAINE 2% MPF LOCAL 5 ML VIAL INFIL ONE (09:18)
[2021-10-22] MEDS ORDERED: HEPARIN (PORCINE) 1000 UNIT/ML 10 ML (CATH LAB USE ONLY) ONE (09:20)
[2021-10-22] MEDS ORDERED: GELATIN SPONGE SZ 100 ONE (09:21)
[2021-10-22] MEDS ORDERED: THROMBIN FOR SOLN 20000 UNIT KIT ONE (09:21)
[2021-10-22] MEDS ORDERED: ceFAZolin 330 MG/ML 1 GM VIAL ONE (09:21)
[2021-10-22] MEDS ORDERED: LIDOCAINE 1% LOCAL 20 ML VIAL ONE (09:21)
[2021-10-22] MEDS ORDERED: EPINEPHrine INJ 1 MG/ML AMP ONE (09:21)
[2021-10-22] MEDS ORDERED: BUPIVACAINE 0.5 % 5 MG/1 ML MPF 30ML VIAL ONE (09:22)
[2021-10-22] MEDS ORDERED: fentaNYL citrate 100 MCG/2 ML VIAL IV PRN (09:27)
[2021-10-22] MEDS ORDERED: ONDANSETRON INJ 2 MG/ML 2 ML VIAL IV PRN (09:27)
[2021-10-22] MEDS ORDERED: ePHEDrine sulfate 50 MG/ML AMP IV PRN (09:27)
[2021-10-22] MEDS ORDERED: ATROPINE SULFATE 0.1 MG/ML 10ML SYR IV PRN (09:27)
[2021-10-22] MEDS ORDERED: VASOPRESSIN 20 UNIT/ML VIAL ONE (11:45)
--- NOTE | 2021-10-22 12:08 | Operative Report ---
Post Operative Report Pre & Post Diagnosis Operation Date: 10/22/21 09:20 <No data on this case meets the specified criteria> Operation Date: 10/22/21 09:20 Pre-Op Diagnosis: Symptomatic Left Carotid Artery Stenosis Post-Op Diagnosis: Symptomatic Left Carotid Artery Stenosis I identified the patient and participated in the time-out.: Yes Procedure Operation Date: 10/22/21 09:20 <No data on this case meets the specified criteria> Operation Date: 10/22/21 09:20 Actual Procedures p Left Carotid Endarterectomy(Left) with bovine patch - Pineda Corley MD Surgeon Pineda Corley MD Lighting Adviser Franca,PAC Estimated Blood Loss 80 Findings Consistent with Post-Op Diagnosis Specimens left carotid plaque Anesthesia Type General Complications none Disposition Accompanied Patient To Recovery: No Disposition: Recovery Room Indications 86-year-old gentleman who presented to emergency room approximately a week ago with amaurosis fugax of the left eye and his 3-day history of aphasia. He was found to have a severe stenosis of his left internal carotid artery. Endarterectomy was recommended. I have discussed the risks options and benefits of the procedure with the patient. The patient understands the risks options and benefits and agrees to the procedure. Description of Procedure The patient was taken to the operating room and placed in supine position. After general anesthesia was accomplished the left side of the neck was prepped and draped in a sterile manner. The patient was identified and a timeout performed. A longitudinal neck incision was then made coursing along the medial border of the sternocleidomastoid muscle. The incision was taken down through the platysmal layer. The dissection was fairly difficult due to previous radiation for his tongue which made the tissue very sclerotic. The facial vein was identified, ligated, and divided. The common carotid artery was then seen. It was dissected free down to the omohyoid muscle. The dissection was carried upward until the external carotid artery and superior thyroid artery was seen. The superior thyroid artery was slung with a 2-0 silk suture. The external carotid was slung with a red rubber vessel loop. Next the dissection was carried up along the internal carotid artery. This was carried upward to beyond the area of narrowing. The hypoglossal nerve was seen and preserved. The patient was heparinized. After adequate heparinization was accomplished, the internal, external, and common carotid arteries were clamped. A longitudinal arteriotomy was started on the common carotid artery and extended upward along the internal carotid artery to a point beyond the area of narrowing. There was calcified plaque of the internal carotid artery origin causing approximately 90% narrowing with an area of ulceration with fresh clot within the base.. A Sundt shunt was then placed in the internal, followed by the common carotid artery and held in place with Kuldeep clamps. There was good back bleeding seen from the internal carotid artery. The endarterectomy was then started in the appropriate plane on the common carotid artery. This was carried upward and the external carotid was everted and endarterectomized. The endarterectomy was then carried up along the internal carotid artery till a nice feathering breakoff point was accomplished beyond the end of the plaque. We did place 3 stay sutures in the distal end of the breakoff point to anchor the remaining thin plaque to the wall of the internal carotid. The endarterectomy was then carried down further on the common carotid artery. At end of the arteriotomy, the plaque was then transected. Under loop magnification, all loose debris and flaps werer removed. There is no distal flap seen at the end of the endarterectomy site. The arteriotomy then closed using a bovine patch and a running 6-0 Prolene suture. This was done in the usual vascular fashion. Prior to completing the closure, the doppler shunt was removed and the internal and common carotid arteries were reclamped. Backbleeding and forward bleeding was allowed to occur. The flow surface was irrigated with heparinized saline. The final few sutures were then placed and securely tied. Clamps were then removed off the external and common carotid arteries. The clamp was then removed the internal carotid artery. Good distal flow was seen. 2 interrupted sutures were placed to stop a leak within the sutures of the patch. Adequate hemostasis was seen of the patch. The wound was inspected and adequate hemostasis was obtained. The wound was irrigated with antibiotic solution. It was then closed with a running 3-0 Vicryl suture for the platysmal layer and a 4-0 subcuticular Vicryl suture for the skin edges. Dermabond was used for dressing. The patient left the operation room in satisfactory condition and tolerated the procedure well. All needle and sponge counts were correct at the end of the procedure. Linda Montenegro Pac assisted due to lack of resident availability and was necessary for prepping, draping, retraction, wound closure defects, subQ and skin closure and was necessary for the case. I attest to the content of the Intraoperative Record and any orders documented therein. Any exceptions are noted below.
--- NOTE | 2021-10-22 13:28 | Anesthesiology Progress Note ---
Date of Service October 22, 2021 Anesthesia Post Procedure Vital Signs Vital Signs: Temp Pulse Pulse Resp BP Pulse Ox O2 Del Method 10/22/21 13:15 70 14 91/56 L 95 Nasal Cannula 10/22/21 13:05 36.3 C L 70 13 94/41 L 94 Room Air 10/22/21 12:55 70 13 111/72 97 Oxymask 10/22/21 12:45 71 13 106/67 98 Oxymask 10/22/21 12:35 70 12 146/93 H 95 Oxymask 10/22/21 12:29 36.0 C L 70 13 154/96 H 99 Oxymask 10/22/21 07:45 36.7 C 71 20 155/95 H 96 Room Air O2 Flow Rate 10/22/21 13:15 2 10/22/21 13:05 10/22/21 12:55 4 10/22/21 12:45 4 10/22/21 12:35 6 10/22/21 12:29 8 10/22/21 07:45 Transfer of Care Handoff Completed per policy Notes Mental Status: alert / awake / arousable and see notes below Patient Amnestic to Procedure: Yes Nausea / Vomiting: adequately controlled Pain: adequately controlled Airway Patency, RR, SpO2: stable & adequate BP & HR: stable & adequate and see Notes below Hydration State: stable & adequate Anesthetic Complications: no major complications apparent and Pt Satisfied with anesthetic care Notes: The patient was cared for by Dr. Curry during surgery. He was signed out to me after he was in PACU. The patient was extubated without incident. He is able to state his full name, however he becomes confused when asked the month (stating that its March). He is correctly able to say that the year is 2021. He is also confused to his current place (hospital). I did not see him preoperatively but this appears to be a change from his preoperative mentation according to Chevy cain ASSOCIATION EXECUTIVE in the case. Dr. Corley was made aware of the postoperative confusion and is not concerned. The patient follows commands to squeeze each hand and raise both legs. He is able to smile and stick his tongue out midline. The patient does not have any swelling or bleeding over the operation site. His blood pressure is in the 90s/50s but his other vital signs are stable. Sign out was given by me to the attending in the ICU including his postoperative confusion and hypotension.
[2021-10-22] MEDS ORDERED: oxyCODONE/ACETAMINOPHEN 5mg/325mg TAB PO PRN (14:09)
[2021-10-22] MEDS ORDERED: MoRPHine SULFATE 4 MG/ML 1 ML CARP\\VIAL IV PRN (14:09)
[2021-10-22] MEDS ORDERED: PANTOprazole 40 MG TAB PO PRN (14:09)
--- NOTE | 2021-10-22 14:35 | Critical Care Consultation ---
Date of Consultation October 22, 2021 Assessment & Plan (1) S/P carotid endarterectomy: (2) Chronic kidney disease, stage 3a: (3) Admitted to intensive care unit: (4) Postop carotid endarterectomy surveillance, encounter for: (5) Hypertension: (6) Left carotid stenosis: (7) Gout: Plan Chest x-ray 10/14/2021 personally reviewed: Portable film, good respiratory effort, bilateral costophrenic and cardiophrenic angles are clean, no clear lung. Appreciated. AICD in place. -- Left-sided carotid stenosis Status post left carotid endarterectomy 10/22/[address] Corley Transient hypotension during the procedure requiring phenylephrine and vasopressin Patient was little bit groggy but was following commands at the time of examination, no focal deficit Continue with neurochecks Keep systolic blood pressure less than 180 Resume Plavix and aspirin tomorrow -- Hypertension Continue with Coreg -- Dyslipidemia Continue with atorvastatin --Hypothyroidism On levothyroxine --Prophylaxis VTE: IPC GI: None Lines: Left radial, peripheral Diet: N.p.o. Plan: Monitor blood pressure. Hydralazine 10 mg as needed systolic blood pressure greater than 180 Continue with neurochecks Monitor H&H Continue with IV fluids and 125 mL/h keeping in mind patient's diastolic dysfunction Please note the above document was generated using voice recognition software. It may contain grammatical, syntax or spelling errors.Any formal questions or concerns about the content, text or information contained within the body of this dictation should be directly addressed to the provider for clarification. History of Present Illness Attending Physician: Pineda Corley MD History of Present Illness 86-year-old male presented to the hospital for carotid endarterectomy Past medical history: CKD, squamous cell cancer of the tongue, gout, hypertension, dyslipidemia Signout was given by the anesthesiologist. Patient with around 200 MCG of fentanyl. He was on low-dose vasopressin and phenylephrine in the OR. At the time of examination patient's was in the room. Patient was following all the commands and answering all the questions appropriately He was little bit slow to respond. As per the patient's recently patient has been having issues with memory. He denies any headache, no neck pain, no nausea vomiting No chest pain, no shortness of breath Social history: Lifetime non-smoker Allergies Allergy/AdvReac Type Severity Reaction Status Date / Time spironolactone Allergy Severe Hypotension; Verified 10/22/21 07:42 [From Aldactone] Fatigue levofloxacin [From Levaquin] Allergy Intermediate rash at IV Verified 10/22/21 07:42 site rosuvastatin [From Crestor] AdvReac Unknown Elevated Verified 10/22/21 07:42 liver enzymes Home Medications Medication Instructions Recorded Confirmed Type omeprazole 20 mg capsule,delayed 20 mg PO BID PRN Acid Reflux 09/16/19 10/22/21 History release carvedilol 12.5 mg tablet 12.5 mg PO BID #180 tabs 04/20/21 10/22/21 Rx atorvastatin 20 mg tablet 20 mg PO HS 10/17/21 10/22/21 History coenzyme Q10 100 mg capsule (Co 100 mg PO QAM 10/17/21 10/22/21 History Q-10) levothyroxine 150 mcg tablet 150 mcg PO QAM 10/17/21 10/22/21 History magnesium oxide 400 mg PO QAM 10/17/21 10/22/21 History aspirin 81 mg tablet,delayed 81 mg PO QAM #30 tabs 10/18/21 10/22/21 Rx release clopidogrel 75 mg tablet 75 mg PO QAM 10/19/21 10/22/21 History Patient History Medical History (Updated 10/22/21 @ 17:23 by Gayatri Charles MD) Abnormal PSA follows with urology in [place]. Acute confusion Complete heart block s/p ICD per records [employer] with [place] leads Diabetes mellitus Resolved with weight loss. A1C 4.8 09/2019 - no issue Dilated cardiomyopathy EF 55-60% Dysphagia Gout History of congestive heart failure EF 55-60% Hx of tongue cancer 2017 and had chemo and radiation Hyperlipidemia Hypertension Hypothyroidism Left carotid stenosis greater than 90% stenosis LVH (left ventricular hypertrophy) severe Surgical History (Updated 10/22/21 @ 17:23 by Gayatri Charles MD) H/O umbilical hernia repair History of cataract surgery left and right History of implantable cardioverter-defibrillator (ICD) placement has Pacemaker/defib combo, placed 2005 for complete heart block. medtronic History of lung surgery had a nodule removed. 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 wedge resection in [place]. History of tonsillectomy History of uvulectomy Hx of colonoscopy Hx of esophagogastroduodenoscopy PEG (percutaneous endoscopic gastrostomy) status placed at [facility] 2018 due to tongue cancer and then it was removed S/P cholecystectomy S/P LASIK surgery of both eyes Family History Brother Prostate cancer Father , age 79 Multiple myeloma Mother , age 85 from "old age" No problems noted. Denies family history of Ovarian cancer Myocardial infarction Breast cancer Colorectal cancer Social History Smoking Status: Former smoker Years Smoked: 20; Cigarettes Per Day: has smoked socially for many years, never heavy; Smoking End Date: smoked heavily for many years; Second Hand Exposure: No; Do You Dip or Chew Tobacco: No; Tobacco Cessation Education Requested by Patient: No Hx Alcohol Use: Yes Alcohol type: hard liquor Hx Substance Use: No Preferred Language: Scottish Communication Ability: Effective Visual Impairment: No Limitations Hearing Ability: Normal Accounts Payable Bookkeeper Required: No Beliefs That Will Affect Care: None marital status: Current Living Situation: Spouse current occupational status: retired 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 How many Children do You have: 2 Other Information That Helps Us Care for You: No other: 2 sons Feels Safe at Home: Yes Safety Concerns: Feels Safe At This Time caffeine: No during the past year weight has: decreased > 10 lbs Seatbelt Use: always Assistive Devices: None Review of Systems Review of Systems: All systems reviewed & are unremarkable except as noted in HPI & below Physical Exam Physical Exam: Constitutional: No acute distress HEENT: EOMI, PERRLA, left carotid incision clean Respiratory system: Good air entry bilaterally, no wheeze, no rhonchi, mild crackles bilateral lower lobes CVS: S1-S2 positive, no murmurs or gallops Abdomen: Soft, nontender, nondistended, positive bowel sounds x4 Extremities: +2 pulses bilaterally radialis/ dorsalis pedis, no cyanosis, no edema Neuro: Awake alert oriented x3, moving all the extremities. Cranial nerves II to XII grossly intact Psych: Normal mood and affect G/U: Positive Mooney Skin: no rashes, warm and dry Lymphatic: no cervical or axillary lymphadenopathy Results & Data Results & Data ([facility]) Vital Signs (Past 12 Hours) Vital Signs Temp Pulse Pulse Pulse Resp BP BP 10/22/21 14:15 115/66 10/22/21 14:15 70 3 L 10/22/21 14:10 70 10 L 10/22/21 14:00 73 4 L 10/22/21 14:00 119/70 10/22/21 13:58 70 12 10/22/21 13:58 114/70 10/22/21 13:54 112/68 10/22/21 13:54 71 1 L 10/22/21 13:51 119/69 10/22/21 13:51 4 L 10/22/21 14:09 36.4 C L 70 16 115/66 10/22/21 13:30 70 19 10/22/21 13:15 70 14 10/22/21 13:05 36.3 C L 70 13 10/22/21 12:55 70 13 10/22/21 12:45 71 13 10/22/21 12:35 70 12 10/22/21 12:29 36.0 C L 70 13 10/22/21 07:45 36.7 C 71 20 BP Pulse Ox O2 Del Method O2 Flow Rate 10/22/21 14:15 10/22/21 14:15 97 10/22/21 14:10 98 10/22/21 14:00 10/22/21 14:00 10/22/21 13:58 98 10/22/21 13:58 10/22/21 13:54 10/22/21 13:54 96 10/22/21 13:51 10/22/21 13:51 99 10/22/21 14:09 134/61 99 Nasal Cannula 2 10/22/21 13:30 105/65 96 Nasal Cannula 2 10/22/21 13:15 91/56 L 95 Nasal Cannula 2 10/22/21 13:05 94/41 L 94 Room Air 10/22/21 12:55 111/72 97 Oxymask 4 10/22/21 12:45 106/67 98 Oxymask 4 10/22/21 12:35 146/93 H 95 Oxymask 6 10/22/21 12:29 154/96 H 99 Oxymask 8 10/22/21 07:45 155/95 H 96 Room Air Laboratory Results 10/22/21 07:49 Coding Level of Care Code 72693 Inpt Consult Level 4 Diagnoses S/P carotid endarterectomy Z98.890 Chronic kidney disease, stage 3a N18.3 Admitted to intensive care unit Z78.9 Postop carotid endarterectomy surveillance, encounter for Z48.812 Hypertension I10 Hypertension type: essential hypertension Left carotid stenosis I65.22 Gout M10.9 Gout site: unspecified site Gout etiology: unspecified cause Chronicity: unspecified (1) Hypertension Hypertension type: essential hypertension Qualified Code(s): I10 - Essential (primary) hypertension (2) Gout Gout site: unspecified site Gout etiology: unspecified cause Chronicity: unspecified Qualified Code(s): M10.9 - Gout, unspecified
[2021-10-22] MEDS: LACTATED RINGER'S 1,000 ML IV SCH ×2 (16:27→21:22)
[2021-10-22] MEDS: carvediloL 12.5 MG TAB PO SCH ×2 (17:21→19:39)
[2021-10-22] MEDS ORDERED: hydrALAZINE HCL 20 MG/ML VIAL IV PRN (17:39)
[2021-10-22 18:07] LABS: Hemoglobin 11.8 g/dl (14.0-18.0); Mean Corpuscular Hemoglobin 31.4 pg (25.0-34.0); Mean Corpuscular Hgb Conc 33.7 g/dL (32.0-36.0); Mean Corpuscular Volume 93.1 fL (80.0-100.0); Mean Platelet Volume 9.8 fL (9.4-12.4); Platelet Count 116 K/uL (130-400); RDW Coefficient of Variation 13.2 % (11.5-14.5); RDW Standard Deviation 45.4 fL (36.4-46.3); Red Blood Count 3.76 M/uL (4.63-6.08); White Blood Count 4.49 K/ul (4.8-10.8)
[2021-10-22 18:28] LABS: Basophils # (auto) 0.01 K/uL (0-0.2); Basophils % (auto) 0.2 %; Immature Granulocytes # (auto) 0.01 K/uL (0.00-0.02); Immature Granulocytes % (auto) 0.2 %; Lymphocytes # (auto) 0.33 K/uL (1.2-3.4); Lymphocytes % (auto) 7.3 %; Monocytes # (auto) 0.09 K/uL (0.24-0.82); Neutrophils # (auto) 4.05 K/uL (1.4-6.5); Neutrophils % (auto) 90.3 %; RBC Morphology Unremarkable
[2021-10-22] MEDS ORDERED: LABETALOL HCL IV 5 MG/ML 20ML IV PRN (18:42)
[2021-10-22] MEDS: ceFAZolin 2000MG 2,000 MG/15 ML SYR IV SCH (19:39)
[2021-10-22] MEDS: ATORVASTATIN 20 MG TAB PO SCH (19:39)
[2021-10-23] MEDS: ceFAZolin 2000MG 2,000 MG/15 ML SYR IV SCH (04:13)
[2021-10-23] MEDS: LACTATED RINGER'S 1,000 ML IV SCH ×3 (05:24→21:05)
[2021-10-23 05:51] LABS: Basophils # (auto) 0.01 K/uL (0-0.2); Basophils % (auto) 0.1 %; Hematocrit (blood only) 32.6 % (40.1-51.0); Hemoglobin 11.2 g/dl (14.0-18.0); Immature Granulocytes # (auto) 0.02 K/uL (0.00-0.02); Immature Granulocytes % (auto) 0.3 %; Lymphocytes # (auto) 0.46 K/uL (1.2-3.4); Mean Corpuscular Hemoglobin 31.5 pg (25.0-34.0); Mean Corpuscular Hgb Conc 34.4 g/dL (32.0-36.0); Mean Corpuscular Volume 91.6 fL (80.0-100.0); Mean Platelet Volume 9.9 fL (9.4-12.4); Monocytes # (auto) 0.55 K/uL (0.24-0.82); Monocytes % (auto) 7.2 %; Neutrophils # (auto) 6.65 K/uL (1.4-6.5); Neutrophils % (auto) 86.4 %; Platelet Count 128 K/uL (130-400); RDW Coefficient of Variation 13.2 % (11.5-14.5); RDW Standard Deviation 44.3 fL (36.4-46.3); Red Blood Count 3.56 M/uL (4.63-6.08); White Blood Count 7.69 K/ul (4.8-10.8)
[2021-10-23] MEDS: LEVOTHYROXINE SODIUM 150 MCG TABLET PO SCH (05:57)
[2021-10-23 06:11] LABS: BUN Creatinine Ratio 16.7 (10-20); Calcium 8.6 mg/dl (8.5-10.1); Creatinine Clr Calc Pharmacy 60.8 ml/min; Est GFR (African American) 72.7 ml/min; Est GFR (Non-African American) 62.7 ml/min; Magnesium 1.7 mg/dl (1.7-2.4); Phosphorus 3.1 mg/dl (2.5-4.9); Potassium 4.4 mmol/L (3.5-5.1)
[2021-10-23] MEDS: CLOPIDOGREL BISULFATE 75 MG TAB PO SCH (08:12)
[2021-10-23] MEDS: ASPIRIN 81 MG ECTAB PO SCH (08:12)
[2021-10-23] MEDS: MAGNESIUM OXIDE 400 MG TAB PO SCH (08:12)
--- NOTE | 2021-10-23 08:28 | Critical Care Progress Note ---
Date of Service October 23, 2021 Assessment & Plan (1) S/P carotid endarterectomy: (2) Chronic kidney disease, stage 3a: (3) Admitted to intensive care unit: (4) Postop carotid endarterectomy surveillance, encounter for: (5) Hypertension: (6) Left carotid stenosis: (7) Gout: Plan Chest x-ray 10/14/2021 personally reviewed: Portable film, good respiratory effort, bilateral costophrenic and cardiophrenic angles are clean, no clear lung. Appreciated. AICD in place. -- Left-sided carotid stenosis Status post left carotid endarterectomy 10/22/[address] Corley Transient hypotension during the procedure requiring phenylephrine and vasopressin Clinically doing better today. Continue with neurochecks Keep systolic blood pressure less than 180 Resume Plavix and aspirin tomorrow -- Hypertension Continue with Coreg -- Dyslipidemia Continue with atorvastatin --Hypothyroidism On levothyroxine --Prophylaxis VTE: IPC GI: None Lines: Left radial, peripheral Diet: N.p.o. Plan: In/out: +959, urine output 1680 Continue with Coreg. If needed we can increase the dose to 25 mg every 12 Swallow eval as patient was having coughing episodes when eating. Magnesium is 1.9 he is already on p.o. magnesium. Radial line to be removed today. Patient hemodynamically stable to be downgraded to medical floor Please note the above document was generated using voice recognition software. It may contain grammatical, syntax or spelling errors.Any formal questions or concerns about the content, text or information contained within the body of this dictation should be directly addressed to the provider for clarification. Admission and Anticipated Discharge Date Admission Date: October 22, 2021 Subjective Patient seen and examined at bedside. No acute distress, no adverse events overnight. Patient did require a dose of hydralazine last last evening for elevated blood pressure Today he is more alert. Answering all the questions appropriately The grogginess which she had has resolved. He did complain of coughing when he was having his clear liquid diet today. Denies any headache, no shortness of breath No chest pain, no nausea or vomiting Review of Systems Review of Systems: All systems reviewed & are unremarkable except as noted in Subjective Physical Exam Physical Exam: Constitutional: No acute distress HEENT: EOMI, PERRLA, left carotid incision clean Respiratory system: Good air entry bilaterally, no wheeze, no rhonchi, mild crackles bilateral lower lobes CVS: S1-S2 positive, no murmurs or gallops Abdomen: Soft, nontender, nondistended, positive bowel sounds x4 Extremities: +2 pulses bilaterally radialis/ dorsalis pedis, no cyanosis, no edema Neuro: Awake alert oriented x3, moving all the extremities. Cranial nerves II to XII grossly intact Psych: Normal mood and affect G/U: No Mooney Skin: no rashes, warm and dry Lymphatic: no cervical or axillary lymphadenopathy Results & Data Results & Data ([facility]) Vital Signs (Past 12 Hours) Vital Signs Temp Pulse BP Pulse Ox O2 Del Method 10/23/21 08:00 Room Air 10/23/21 06:45 176/84 H 10/23/21 06:45 76 92 10/23/21 06:30 70 94 10/23/21 06:30 147/76 H 10/23/21 06:15 136/76 10/23/21 06:15 70 94 10/23/21 06:00 77 94 10/23/21 06:00 156/82 H 10/23/21 05:30 70 93 10/23/21 05:30 133/65 10/23/21 05:15 127/66 10/23/21 05:15 71 93 10/23/21 05:01 158/97 H 10/23/21 05:01 84 93 10/23/21 05:00 82 94 10/23/21 04:45 143/70 H 10/23/21 04:45 73 92 10/23/21 04:30 70 93 10/23/21 04:30 126/70 10/23/21 04:15 70 93 10/23/21 04:15 128/65 10/23/21 04:00 70 93 10/23/21 03:45 121/73 10/23/21 03:45 71 93 10/23/21 03:30 86 93 10/23/21 03:30 145/75 H 10/23/21 03:00 77 90 10/23/21 03:00 119/58 L 10/23/21 02:45 74 91 10/23/21 02:45 118/56 L 10/23/21 02:30 78 93 10/23/21 02:30 118/64 10/23/21 02:16 91 H 93 10/23/21 02:16 153/65 H 10/23/21 02:00 90 96 10/23/21 02:00 163/81 H 10/23/21 01:45 74 92 10/23/21 01:45 134/64 10/23/21 05:00 36.9 C 10/23/21 01:30 74 91 10/23/21 01:30 115/59 L 10/23/21 01:15 128/73 10/23/21 01:15 76 93 10/23/21 01:00 75 94 10/23/21 00:45 74 93 10/23/21 00:45 116/58 L 10/23/21 00:30 75 93 10/23/21 00:30 116/60 10/23/21 00:15 136/64 10/23/21 00:15 78 94 10/23/21 00:00 77 95 10/23/21 00:00 141/72 H 10/23/21 01:00 37.0 C 10/22/21 23:45 82 95 10/22/21 23:45 139/77 10/22/21 23:30 73 93 10/22/21 23:30 138/68 10/22/21 23:15 113/64 10/22/21 23:15 71 93 10/22/21 23:00 70 93 10/22/21 23:00 128/67 10/22/21 22:45 110/59 L 10/22/21 22:45 75 92 10/22/21 22:30 72 94 10/22/21 22:30 121/69 10/22/21 22:16 79 95 10/22/21 22:16 156/72 H 10/22/21 23:50 76 10/22/21 22:00 74 93 10/22/21 22:00 116/61 10/22/21 21:45 131/69 10/22/21 21:45 73 93 10/22/21 21:30 74 94 10/22/21 21:30 121/62 10/22/21 21:15 122/63 10/22/21 21:15 75 94 10/22/21 21:00 75 93 10/22/21 21:00 107/60 10/22/21 20:45 124/64 10/22/21 20:45 72 92 10/22/21 20:30 71 94 10/22/21 20:30 123/64 10/22/21 21:09 36.9 C Laboratory Results 10/23/21 05:17 10/23/21 05:17 Coding Level of Care Code 13306 Subseq Hosp Care Lvl 2 Diagnoses S/P carotid endarterectomy Z98.890 Chronic kidney disease, stage 3a N18.3 Admitted to intensive care unit Z78.9 Postop carotid endarterectomy surveillance, encounter for Z48.812 Hypertension I10 Hypertension type: essential hypertension Left carotid stenosis I65.22 Gout M10.9 Gout site: unspecified site Gout etiology: unspecified cause Chronicity: unspecified (1) Hypertension Hypertension type: essential hypertension Qualified Code(s): I10 - Essential (primary) hypertension (2) Gout Gout site: unspecified site Gout etiology: unspecified cause Chronicity: unspecified Qualified Code(s): M10.9 - Gout, unspecified
--- NOTE | 2021-10-23 08:46 | Surgery Progress Note ---
Date of Service October 23, 2021 Assessment & Plan (1) S/P carotid endarterectomy: Plan: Pt overall doing well after uncomplicated L CEA. Slowness to respond to questions was present preoperatively. d/t concerns regarding swallowing difficulty, will order swallowing study today. If results normal, possible d/c today. If abnormal, will remain overnight. Pt understands, but states, " This has happened before, I don't need the testing." Pt advised this is precaut ionary and in his best interest. He is agreeable. Admission and Anticipated Discharge Date Admission Date: October 22, 2021 Subjective 86 yo m POD #1 after uncomplicated L CEA, seen in f/u today. Pt states feeling ok today, just a little tired. Per RN, pt coughing when eating/taking pills this AM. Pt denies any significant problems swallowing. Review of Systems Review of Systems: All systems reviewed & are unremarkable except as noted in HPI & below Physical Exam Constitutional: WD/WN, vitals as above cooperative and comfortable; not in distress Neck: trachea midline L neck incision C/D/I, mild local ecchymosis/tenderness. Minimal local edema Cardiovascular: Rate/Rhythm: regular rate and regular rhythm Vessels: posterior tibial pulses present, dorsalis pedis pulses present and brachial pulses present; + abnormal peripheral pulses Extremities: normal capillary refill; no edema Gastrointestinal (Abdomen): Inspection/Auscultation: abdomen normal to inspection and normal bowel sounds Percussion/Palpation: abdomen soft; abdomen nontender Musculoskeletal: no cyanosis or clubbing, extremities motor strength 5/5 Skin: no rashes, warm and dry Neurologic: moves all extremities and awake; no focal motor deficits and not confused (oriented and appropriate, but slow to answer questions) Psychiatric: A+Ox3, euthymic affect Results & Data ([facility]) Vital Signs (Past 12 Hours) Vital Signs Temp Pulse BP Pulse Ox O2 Del Method 10/23/21 08:30 87 10/23/21 08:20 73 97 10/23/21 08:10 71 93 10/23/21 08:02 71 94 10/23/21 08:02 139/72 10/23/21 08:00 71 92 10/23/21 07:50 72 10/23/21 07:40 78 10/23/21 07:33 80 95 10/23/21 07:33 170/93 H 10/23/21 07:30 91 H 10/23/21 07:20 83 93 10/23/21 07:16 162/88 H 10/23/21 07:16 76 91 10/23/21 07:10 75 91 10/23/21 07:00 71 93 10/23/21 07:00 141/77 H 10/23/21 06:50 80 92 10/23/21 08:00 Room Air 10/23/21 06:45 176/84 H 10/23/21 06:45 76 92 10/23/21 06:30 70 94 10/23/21 06:30 147/76 H 10/23/21 06:15 136/76 10/23/21 06:15 70 94 10/23/21 06:00 77 94 10/23/21 06:00 156/82 H 10/23/21 05:30 70 93 10/23/21 05:30 133/65 10/23/21 05:15 127/66 10/23/21 05:15 71 93 10/23/21 05:01 158/97 H 10/23/21 05:01 84 93 10/23/21 05:00 82 94 10/23/21 04:45 143/70 H 10/23/21 04:45 73 92 10/23/21 04:30 70 93 10/23/21 04:30 126/70 10/23/21 04:15 70 93 10/23/21 04:15 128/65 10/23/21 04:00 70 93 10/23/21 03:45 121/73 10/23/21 03:45 71 93 10/23/21 03:30 86 93 10/23/21 03:30 145/75 H 10/23/21 03:00 77 90 10/23/21 03:00 119/58 L 10/23/21 02:45 74 91 10/23/21 02:45 118/56 L 10/23/21 02:30 78 93 10/23/21 02:30 118/64 10/23/21 02:16 91 H 93 10/23/21 02:16 153/65 H 10/23/21 02:00 90 96 10/23/21 02:00 163/81 H 10/23/21 01:45 74 92 10/23/21 01:45 134/64 07/26/22 05:00 36.9 C 10/23/21 01:30 74 91 10/23/21 01:30 115/59 L 10/23/21 01:15 128/73 10/23/21 01:15 76 93 10/23/21 01:00 75 94 10/23/21 00:45 74 93 10/23/21 00:45 116/58 L 10/23/21 00:30 75 93 10/23/21 00:30 116/60 10/23/21 00:15 136/64 10/23/21 00:15 78 94 10/23/21 00:00 77 95 10/23/21 00:00 141/72 H 10/23/21 01:00 37.0 C 10/22/21 23:45 82 95 10/22/21 23:45 139/77 10/22/21 23:30 73 93 10/22/21 23:30 138/68 10/22/21 23:15 113/64 10/22/21 23:15 71 93 10/22/21 23:00 70 93 10/22/21 23:00 128/67 10/22/21 22:45 110/59 L 10/22/21 22:45 75 92 10/22/21 22:30 72 94 10/22/21 22:30 121/69 10/22/21 22:16 79 95 10/22/21 22:16 156/72 H 10/22/21 23:50 76 10/22/21 22:00 74 93 10/22/21 22:00 116/61 10/22/21 21:45 131/69 10/22/21 21:45 73 93 10/22/21 21:30 74 94 10/22/21 21:30 121/62 10/22/21 21:15 122/63 10/22/21 21:15 75 94 10/22/21 21:00 75 93 10/22/21 21:00 107/60 10/22/21 20:45 124/64 10/22/21 20:45 72 92 10/22/21 21:09 36.9 C
[2021-10-23] MEDS: carvediloL 12.5 MG TAB PO SCH ×2 (08:53→21:05)
[2021-10-23] MEDS ORDERED: NON-FORMULARY MEDICATION (Coenzyme Q10 [Co Q-10] 100 mg Capsule) PO SCH (09:00)
[2021-10-23] MEDS: ATORVASTATIN 20 MG TAB PO SCH (21:05)
[2021-10-24] MEDS: LACTATED RINGER'S 1,000 ML IV SCH ×3 (05:41→20:57)
[2021-10-24] MEDS: LEVOTHYROXINE SODIUM 150 MCG TABLET PO SCH (05:47)
[2021-10-24 06:00] LABS: Basophils # (auto) 0.01 K/uL (0-0.2); Basophils % (auto) 0.2 %; Eosinophils # (auto) 0.04 K/uL (0-0.50); Eosinophils % (auto) 0.8 %; Hematocrit (blood only) 34.4 % (40.1-51.0); Hemoglobin 11.6 g/dl (14.0-18.0); Immature Granulocytes # (auto) 0.02 K/uL (0.00-0.02); Immature Granulocytes % (auto) 0.4 %; Lymphocytes # (auto) 0.62 K/uL (1.2-3.4); Lymphocytes % (auto) 11.9 %; Mean Corpuscular Hemoglobin 31.6 pg (25.0-34.0); Mean Corpuscular Hgb Conc 33.7 g/dL (32.0-36.0); Mean Corpuscular Volume 93.7 fL (80.0-100.0); Monocytes # (auto) 0.65 K/uL (0.24-0.82); Monocytes % (auto) 12.5 %; Neutrophils # (auto) 3.87 K/uL (1.4-6.5); Neutrophils % (auto) 74.2 %; Platelet Count 109 K/uL (130-400); RDW Coefficient of Variation 13.4 % (11.5-14.5); Red Blood Count 3.67 M/uL (4.63-6.08); White Blood Count 5.21 K/ul (4.8-10.8)
[2021-10-24 06:32] LABS: Calcium 8.7 mg/dl (8.5-10.1); Creatinine Clr Calc Pharmacy 66.6 ml/min; Est GFR (African American) 79.7 ml/min; Est GFR (Non-African American) 68.8 ml/min; Magnesium 1.7 mg/dl (1.7-2.4); Phosphorus 2.6 mg/dl (2.5-4.9); Potassium 4.1 mmol/L (3.5-5.1)
[2021-10-24] MEDS: CLOPIDOGREL BISULFATE 75 MG TAB PO SCH (08:47)
[2021-10-24] MEDS: MAGNESIUM OXIDE 400 MG TAB PO SCH (08:47)
[2021-10-24] MEDS: ASPIRIN 81 MG ECTAB PO SCH (08:47)
--- NOTE | 2021-10-24 10:49 | Surgery Progress Note ---
Date of Service October 24, 2021 Assessment & Plan (1) S/P carotid endarterectomy: Plan: Pt overall doing well after uncomplicated L CEA. Slowness to respond to questions was present preoperatively. Pt appeared to be hypotensive with R arm BP cuff, BP retaken in both arms was 80 systolic in R arm and 120 in L arm, while sitting up in chair. Pt asymptomatic. BP while lying down was 120 systolic in R arm and 140 in L arm. Discussed with Dr Corley, ordered EKG and Troponin. Pt currently NPO d/t aspiration precautions, but does have fluids running. Pt to be seen by speech therapy again today. Admission and Anticipated Discharge Date Admission Date: October 22, 2021 Subjective 86 yo m POD #2 after uncomplicated L CEA, seen in f/u today. Pt states feeling ok today, just a little tired. Had speech eval, significant issues swallowing noted, currently NPO. Per RN, has been somewhat hypotensive for the past 1-2 hrs, after being hypertensive overnight. No other new complaints. Review of Systems Review of Systems: All systems reviewed & are unremarkable except as noted in HPI & below Physical Exam Constitutional: WD/WN, vitals as above cooperative and comfortable; not in distress Neck: trachea midline Cardiovascular: Rate/Rhythm: regular rate and regular rhythm Vessels: posterior tibial pulses present, dorsalis pedis pulses present and brachial pulses present; + abnormal peripheral pulses Extremities: normal capillary refill; no edema Gastrointestinal (Abdomen): Inspection/Auscultation: abdomen normal to inspection and normal bowel sounds Percussion/Palpation: abdomen soft; abdomen nontender Musculoskeletal: no cyanosis or clubbing, extremities motor strength 5/5 Skin: no rashes, warm and dry Neurologic: moves all extremities and awake; no focal motor deficits and not confused (oriented and appropriate, but slow to answer questions) Psychiatric: A+Ox3, euthymic affect Results & Data ([facility]) Vital Signs (Past 12 Hours) Vital Signs Pulse Resp BP Pulse Ox O2 Del Method 10/24/21 08:00 Room Air 10/24/21 08:00 73 10/24/21 03:30 71 10/24/21 03:00 70 10/24/21 03:00 15 138/68 97 10/24/21 02:30 71 10/24/21 02:00 70 10/24/21 02:00 143/63 H 10/24/21 01:30 70 10/24/21 01:00 70 10/24/21 01:00 144/61 H 10/24/21 00:30 70 10/24/21 00:00 72 10/24/21 00:00 153/65 H 10/23/21 23:30 70 10/23/21 23:00 69 10/23/21 23:00 15 144/78 H 98 10/24/21 00:00 70
--- NOTE | 2021-10-24 11:02 | Critical Care Progress Note ---
Date of Service October 24, 2021 Assessment & Plan (1) S/P carotid endarterectomy: (2) Chronic kidney disease, stage 3a: (3) Admitted to intensive care unit: (4) Postop carotid endarterectomy surveillance, encounter for: (5) Hypertension: (6) Left carotid stenosis: (7) Gout: Plan Chest x-ray 10/14/2021 personally reviewed: Portable film, good respiratory effort, bilateral costophrenic and cardiophrenic angles are clean, no clear lung. Appreciated. AICD in place. -- Left-sided carotid stenosis Status post left carotid endarterectomy 10/22/[address] Corley Transient hypotension during the procedure requiring phenylephrine and vasopressin Clinically doing better Continue with neurochecks Keep systolic blood pressure less than 180 Resume Plavix and aspirin tomorrow -- Hypertension Continue with Coreg -- Dyslipidemia Continue with atorvastatin --Hypothyroidism On levothyroxine --Prophylaxis VTE: IPC GI: None Lines: Left radial, peripheral Diet: N.p.o. Plan: In/out: -219, urine output 3430 Patient's magnesium is on the lower side. On p.o. magnesium on a daily basis. Follow-up swallow eval. Downgrade plans as per vascular surgery. Please note the above document was generated using voice recognition software. It may contain grammatical, syntax or spelling errors.Any formal questions or concerns about the content, text or information contained within the body of this dictation should be directly addressed to the provider for clarification. Admission and Anticipated Discharge Date Admission Date: October 22, 2021 Subjective Patient seen at bedside. No acute distress, no adverse events overnight. Patient is answering all the questions appropriately. He is still n.p.o. as swallow eval was not done yesterday as patient refused. Denies any issues with breathing. No headache, no nausea or vomiting No belly pain. Physical Exam Physical Exam: Constitutional: No acute distress HEENT: EOMI, PERRLA, left carotid incision clean Respiratory system: Good air entry bilaterally, no wheeze, no rhonchi, mild crackles bilateral lower lobes CVS: S1-S2 positive, no murmurs or gallops Abdomen: Soft, nontender, nondistended, positive bowel sounds x4 Extremities: +2 pulses bilaterally radialis/ dorsalis pedis, no cyanosis, no edema Neuro: Awake alert oriented x3, moving all the extremities. Cranial nerves II to XII grossly intact Psych: Normal mood and affect G/U: No Mooney Skin: no rashes, warm and dry Lymphatic: no cervical or axillary lymphadenopathy Results & Data Results & Data ([facility]) Vital Signs (Past 12 Hours) Vital Signs Pulse Resp BP Pulse Ox O2 Del Method 10/24/21 08:00 Room Air 10/24/21 08:00 73 10/24/21 03:30 71 10/24/21 03:00 70 10/24/21 03:00 15 138/68 97 10/24/21 02:30 71 10/24/21 02:00 70 10/24/21 02:00 143/63 H 10/24/21 01:30 70 10/24/21 01:00 70 10/24/21 01:00 144/61 H 10/24/21 00:30 70 10/24/21 00:00 72 10/24/21 00:00 153/65 H 10/23/21 23:30 70 10/23/21 23:00 69 10/23/21 23:00 15 144/78 H 98 10/24/21 00:00 70 Laboratory Results 10/24/21 05:28 10/24/21 05:28 Coding Level of Care Code 16209 Subseq Hosp Care Lvl 2 Diagnoses S/P carotid endarterectomy Z98.890 Chronic kidney disease, stage 3a N18.3 Admitted to intensive care unit Z78.9 Postop carotid endarterectomy surveillance, encounter for Z48.812 Hypertension I10 Hypertension type: essential hypertension Left carotid stenosis I65.22 Gout M10.9 Gout site: unspecified site Gout etiology: unspecified cause Chronicity: unspecified (1) Hypertension Hypertension type: essential hypertension Qualified Code(s): I10 - Essential (primary) hypertension (2) Gout Gout site: unspecified site Gout etiology: unspecified cause Chronicity: unspecified Qualified Code(s): M10.9 - Gout, unspecified
[2021-10-24] MEDS: carvediloL 12.5 MG TAB PO SCH ×2 (12:47→20:58)
--- NOTE | 2021-10-24 15:56 | Electrocardiogram Report ---
Test Reason : Blood Pressure : / mmHG Vent. Rate : 072 BPM Atrial Rate : 063 BPM P-R Int : 128 ms QRS Dur : 176 ms QT Int : 484 ms P-R-T Axes : 084 -79 079 degrees QTc Int : 529 ms AV dual-paced rhythm Biventricular pacemaker detected Abnormal ECG When compared with ECG of 17-OCT-2021 13:19, Vent. rate has decreased BY 3 BPM Confirmed by Jose Patricio ([id number]) on 10/24/2021 3:56:04 PM Referred By: Pineda Corley Confirmed By:Jose Patricio
[2021-10-24] MEDS: ATORVASTATIN 20 MG TAB PO SCH (20:57)
[2021-10-25] MEDS: LACTATED RINGER'S 1,000 ML IV SCH ×3 (06:39→20:50)
[2021-10-25] MEDS: LEVOTHYROXINE SODIUM 150 MCG TABLET PO SCH (06:39)
[2021-10-25] MEDS: MAGNESIUM OXIDE 400 MG TAB PO SCH (11:14)
[2021-10-25] MEDS: carvediloL 12.5 MG TAB PO SCH (11:14)
[2021-10-25] MEDS: CLOPIDOGREL BISULFATE 75 MG TAB PO SCH (11:14)
[2021-10-25] MEDS: ASPIRIN 81 MG ECTAB PO SCH (11:14)
--- NOTE | 2021-10-25 12:24 | Gastrointestinal Consultation ---
Date of Consultation October 25, 2021 Assessment & Plan (1) Feeding difficulty: Plan 86 year old male with pmhx of prostate ca, CKD, SCC of tongue, gout, HTN, hyperlipidemia, hypothyroidism, anemia, DMII, cardiomyopathy, pacemaker, ICD in place, SCCa of tongue 2018 s/p chemo/radiation, admitted with stroke like symptoms 3 days ago. He underwent a carotid endarterectomy earlier this week. GI consulted to see due to worsening swallowing issues since surgery and he had failed his video fluoroscopy. speech recommending NPO. Patient and family are agreeable to having peg tube placed. - Discussed with Dr. Narayan. - Given use of plavix, this will need to be held for 5 days prior to peg placement. Last dose given yesterday. If he is staying inpatient we can plan for peg tube next week or we can plan to have done as an outpatient. History of Present Illness Reason for Consultation: peg placement. Requesting Physician: Dr. Corley. Attending Physician: Pineda Corley MD History of Present Illness 86 year old male with pmhx of prostate ca, CKD, SCC of tongue, gout, HTN, hyperlipidemia, hypothyroidism, anemia, DMII, cardiomyopathy, pacemaker, ICD in place, admitted with stroke like symptoms 3 days ago. He underwent a carotid endarterectomy earlier this week. GI consulted to see due to worsening swallowing issues since surgery and he had failed his video fluoroscopy. speech recommending NPO. Patient tells me that he has needed a peg tube in the past. He had tongue cancer in 2018 and at that time had a peg tube which has since been removed. Patient is agreeable to having a a peg tube placed. otherwise, GI ros negative at this time. Allergies Allergy/AdvReac Type Severity Reaction Status Date / Time spironolactone Allergy Severe Hypotension; Verified 10/22/21 07:42 [From Aldactone] Fatigue levofloxacin [From Levaquin] Allergy Intermediate rash at IV Verified 10/22/21 07:42 site rosuvastatin [From Crestor] AdvReac Unknown Elevated Verified 10/22/21 07:42 liver enzymes Home Medications Medication Instructions Recorded Confirmed Type omeprazole 20 mg capsule,delayed 20 mg PO BID PRN Acid Reflux 09/16/19 10/22/21 History release carvedilol 12.5 mg tablet 12.5 mg PO BID #180 tabs 04/20/21 10/22/21 Rx atorvastatin 20 mg tablet 20 mg PO HS 10/17/21 10/22/21 History coenzyme Q10 100 mg capsule (Co 100 mg PO QAM 10/17/21 10/22/21 History Q-10) levothyroxine 150 mcg tablet 150 mcg PO QAM 10/17/21 10/22/21 History magnesium oxide 400 mg PO QAM 10/17/21 10/22/21 History aspirin 81 mg tablet,delayed 81 mg PO QAM #30 tabs 10/18/21 10/22/21 Rx release clopidogrel 75 mg tablet 75 mg PO QAM 10/19/21 10/22/21 History Patient History Medical History (Updated 10/25/21 @ 12:28 by Kiran Bowen PA-C) Abnormal PSA follows with urology in [place]. Acute confusion Complete heart block s/p ICD per records [employer] with [place] leads Diabetes mellitus Resolved with weight loss. A1C 4.8 09/2019 - no issue Dilated cardiomyopathy EF 55-60% Dysphagia Gout History of congestive heart failure EF 55-60% Hx of tongue cancer 2017 and had chemo and radiation Hyperlipidemia Hypertension Hypothyroidism Left carotid stenosis greater than 90% stenosis LVH (left ventricular hypertrophy) severe Surgical History (Updated 10/22/21 @ 17:23 by Gayatri Charles MD) H/O umbilical hernia repair History of cataract surgery left and right History of implantable cardioverter-defibrillator (ICD) placement has Pacemaker/defib combo, placed 2005 for complete heart block. medtronic History of lung surgery had a nodule removed. 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 wedge resection in [place]. History of tonsillectomy History of uvulectomy Hx of colonoscopy Hx of esophagogastroduodenoscopy PEG (percutaneous endoscopic gastrostomy) status placed at [facility] 2017 due to tongue cancer and then it was removed S/P cholecystectomy S/P LASIK surgery of both eyes Family History Brother Prostate cancer Father , age 79 Multiple myeloma Mother , age 85 from "old age" No problems noted. Denies family history of Ovarian cancer Myocardial infarction Breast cancer Colorectal cancer Social History Smoking Status: Former smoker Years Smoked: 20; Cigarettes Per Day: has smoked socially for many years, never heavy; Smoking End Date: smoked heavily for many years; Second Hand Exposure: No; Do You Dip or Chew Tobacco: No; Tobacco Cessation Education Requested by Patient: No Hx Alcohol Use: Yes Alcohol type: hard liquor Hx Substance Use: No Preferred Language: Hebrew Communication Ability: Effective Visual Impairment: No Limitations Hearing Ability: Normal Government Affairs Researcher Required: No Beliefs That Will Affect Care: None marital status: Current Living Situation: Spouse current occupational status: retired 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 Cardiovascular: RRR Gastrointestinal (Abdomen): normal bowel sounds, soft, nontender, no hepatosplenomegaly Skin: no rashes, warm and dry Psychiatric: A+Ox3, euthymic affect Results & Data ([facility]) Vital Signs (Past 12 Hours) Vital Signs Temp Pulse Resp BP Pulse Ox O2 Del Method 10/25/21 11:21 36.7 C 70 16 125/67 95 Room Air 10/25/21 07:34 36.8 C 16 157/81 H 95 Room Air PG Care Time/CCT Total # of Minutes Spent Total Time Spent with Patient: Total time spent is greater than 50% in coordination of care (as documented) at patient's floor/unit and/or counseling patient: Coding Level of Care Code 84391 Initial Inpt Care Lvl 3 Diagnoses Feeding difficulty R63.30
--- NOTE | 2021-10-25 13:16 | Fluoroscopy Report ---
FL video swallow HISTORY: Difficulty swallowing. Assess for aspiration. TECHNIQUE: Video fluoroscopic evaluation of swallowing was performed in the AP and lateral projection s by the speech pathology staff. The patient is fed nectar-thick and thin liquid barium, a barium coa frantz wafer, and barium pudding. FLUOROSCOPY TIME: 3.1 minutes. A cine loop submitted. COMPARISON STUDY: Video swallow 06/13/2018. FINDINGS: There is again noted diffuse soft tissue thickening at the tongue base and epiglottis. This results in incomplete epiglottic deflection and suboptimal pharyngeal constriction. Therefore, there is significant residue within the vallecula and hypopharynx throughout the examination. This results in multiple episodes of delayed deep penetration to the level of the vocal cords with a few episodes of silent aspiration. IMPRESSION: 1. Incomplete epiglottic deflection throughout the examination resulting in multiple episodes of paco yed deep penetration to the level of the vocal cords and a few episodes of silent aspiration. 2. Please see the speech pathologist report for detailed findings and recommendations. ACT 112: Negative or not required by law. Electronically signed by: Len Tony M.D. 10/25/2021 1:14 PM
--- NOTE | 2021-10-25 15:27 | Surgery Progress Note ---
Date of Service October 25, 2021 Assessment & Plan (1) Feeding difficulty: Plan: This point he feels his video swallowing study. This happened in the past when he had his treatment for his tongue cancer. He required a PEG and feedings for a year and a half before he got enough strength to take oral intake again. We will consulted gastroenterology at this point for PEG tube placement. (2) S/P carotid endarterectomy: Plan: Patient is doing well after his endarterectomy. He did have a failed bedside swallow study prior to this when he had a stroke last week. He was able to take a specialized diet at that time. During his third surgery we did have some manipulation of the vagus which was anterior to the carotid artery. Surgery itself in a radiated neck may have exacerbated the swallowing difficulty. Relieved by placing the PEG and resting his swallowing mechanism and physical therapy he will regain function as it was prior to his surgical procedure. Admission and Anticipated Discharge Date Admission Date: October 22, 2021 Subjective Patient has no complaints however he is coughing when taking oral intake and pills. He claims this is the same as when he had his PEG tube. He did have his video swallow test today which failed. Physical Exam Constitutional: WD/WN, vitals as above Neck: trachea midline Respiratory: normal respiratory effort; no respiratory distress Cardiovascular: Rate/Rhythm: regular rate and regular rhythm Skin: + incision (Incision is dry and clean) Neurologic: CN's II-XI intact bilaterally (He failed his video swallowing study today.) and moves all extremities Speech / Cognition: + expressive aphasia (He has slight difficulty in finding words at times.) Psychiatric: Orientation: alert and oriented x 3 Results & Data ([facility]) Vital Signs (Past 12 Hours) Vital Signs Temp Pulse Resp BP Pulse Ox O2 Del Method 10/25/21 11:21 36.7 C 70 16 125/67 95 Room Air 10/25/21 07:34 36.8 C 16 157/81 H 95 Room Air
[2021-10-25] MEDS: METOPROLOL TARTRATE 1 MG/ML VIAL IV SCH (18:05)
[2021-10-25] MEDS: ATORVASTATIN 20 MG TAB PO SCH (20:49)
[2021-10-26] MEDS: METOPROLOL TARTRATE 1 MG/ML VIAL IV SCH ×3 (01:12→12:57)
[2021-10-26] MEDS: LACTATED RINGER'S 1,000 ML IV SCH (04:56)
[2021-10-26] MEDS: LEVOTHYROXINE SODIUM 150 MCG TABLET PO SCH (04:57)
[2021-10-26] MEDS: CLOPIDOGREL BISULFATE 75 MG TAB PO SCH (08:45)
[2021-10-26] MEDS: ASPIRIN 81 MG ECTAB PO SCH (08:45)
[2021-10-26] MEDS: MAGNESIUM OXIDE 400 MG TAB PO SCH (08:45)
[2021-10-26] MEDS: D5W AND 1/2NSS 1,000 ML IV SCH ×2 (12:57→22:11)
--- NOTE | 2021-10-26 13:30 | Surgery Progress Note ---
Date of Service October 26, 2021 Assessment & Plan (1) S/P carotid endarterectomy: Plan: Has swallowing difficulty post endart and intermittent difficulty with speech (2) Swallowing dysfunction: Plan: Patient for a PEG tube early next week. His swallowing study was still abnormal after his treatment of his tongue ca. The study done last week after his TIA was abnormal. Most likely the surgery may have irritated the nerves in the neck worsening his swallowing function. Hopefully with speech therapy and feedings via a PEG tube, his function will become to his baseline and he will be able to eat again. Will consult neuro for re evaluation due to his intermittent aphasia and swallowing dysfunction. He can not have an MRI so will order a repeat CT scan of the head Admission and Anticipated Discharge Date Admission Date: October 22, 2021 Subjective Patient claims to be feeling good. Still has difficulty swallowing. He is oriented at this time but this waxes and wanes. Physical Exam Constitutional: WD/WN, vitals as above Neck: trachea midline Respiratory: normal respiratory effort; no respiratory distress Cardiovascular: RRR, no murmur, no edema Skin: + incision (dry and clean with mild edema) Neurologic: moves all extremities; + CN's not intact Speech / Cognition: + expressive aphasia (intermittent) Psychiatric: Orientation: alert, oriented to person and oriented to time Results & Data ([facility]) Vital Signs (Past 12 Hours) Vital Signs Temp Pulse Resp BP BP Pulse Ox O2 Del Method 10/26/21 11:06 36.6 C 71 18 129/76 94 Room Air 10/26/21 07:41 36.7 C 70 18 155/83 H 92 Room Air 10/26/21 06:41 36.5 C 74 20 167/88 H 93 Room Air 10/26/21 03:26 36.6 C 72 20 158/77 H 93 Room Air
--- NOTE | 2021-10-26 15:52 | Neurology Consultation ---
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 Patient does have some evidence of small chronic infarcts within the left cerebral hemisphere which likely contributes to his intermittent word finding difficulty/expressive aphasia. He has had an episode of amaurosis fugax to the left eye as well, fortunately no further recurrence. Other listed stroke risk factors of this patient include hypertension, hyperlipidemia, and diabetes mellitus. However, I do note that his hemoglobin A1c has been normal recently, as well as his lipid panel with an LDL less than 70. He has seen [facility] cardiology, Dr. Dumont, previously regarding his history of cardiomyopathy, complete heart block, and biventricular ICD placement. 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 I do not have any further specific recommendations for his acute treatment. He should continue with dual antiplatelet therapy for the time being, aspirin 81 mg/day and clopidogrel 75 mg/day. Would typically recommend only short-term treatment with dual antiplatelet therapy, however, 3 weeks, followed by transition to monotherapy, and his case, probably Plavix 75 mg/day. He does not appear to have an indication for anticoagulation. Follow-up with results of most recent CT of the head. Per my review, however, not much difference compared with the previous study done October 18, 2021. Additional carotid imaging at the discretion of vascular surgery, Dr. Corley. Patient will need additional assessment with speech and swallowing. In many instances of injury to the recurrent laryngeal nerve during CEA, postoperative symptoms such as dysphagia and dysphonia resolved within a few weeks. PEG tube placement early next week seems reasonable to allow for appropriate rest of his swallowing mechanism and to allow for interval healing. History of Present Illness Reason for Consultation: aphasia, dysphagia Requesting Physician: Dr. 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 He had been experiencing episodic difficulty with word finding and had an episode of painless monocular vision loss to the left eye that subsequently resolved. 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 Patient has been seen previously in neurological consultation by Dr. Scruggs on October 18, 2021 for further evaluation of word finding difficulty and headache at that time. Patient has a cardiac pacer that apparently is not MRI compatible. A CT angiogram of the head and neck completed on October 18, 2021 had revealed a severe, greater than 90%, stenosis of the left internal carotid artery, just past its origin. There was some atherosclerosis within the right carotid bulb, not significant. Vertebral arteries patent, left vertebral artery dominant. 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 No significant vascular abnormalities identified on CT angiogram of the head. A previous CT of the head completed October 18, 2021 had revealed some changes suggestive of chronic microvascular ischemic disease, a bit more prominent within the left frontal subcortical region per my review. A follow-up CT of the head was done today in the context of his current hospitalization, post left carotid endarterectomy status, now with dysphagia. There is no evidence of hemorrhage or acute process. The imaging does not look significantly different compared with the previous CT of the head done on October 18. Official radiology report pending at this time. The patient has recently failed a swallowing study. They are planning for PEG tube placement early next week. His voice has been notably hoarse as well. He continues to complain of occasional difficulty with word finding. No further episodes of amaurosis fugax. Denies experiencing any episodes of unilateral weakness or sensory loss. Allergies Allergy/AdvReac Type Severity Reaction Status Date / Time spironolactone Allergy Severe Hypotension; Verified 10/22/21 07:42 [From Aldactone] Fatigue levofloxacin [From Levaquin] Allergy Intermediate rash at IV Verified 10/22/21 07:42 site rosuvastatin [From Crestor] AdvReac Unknown Elevated Verified 10/22/21 07:42 liver enzymes Home Medications Medication Instructions Recorded Confirmed Type omeprazole 20 mg capsule,delayed 20 mg PO BID PRN Acid Reflux 09/16/19 10/22/21 History release carvedilol 12.5 mg tablet 12.5 mg PO BID #180 tabs 04/20/21 10/22/21 Rx atorvastatin 20 mg tablet 20 mg PO HS 10/17/21 10/22/21 History coenzyme Q10 100 mg capsule (Co 100 mg PO QAM 10/17/21 10/22/21 History Q-10) levothyroxine 150 mcg tablet 150 mcg PO QAM 10/17/21 10/22/21 History magnesium oxide 400 mg PO QAM 10/17/21 10/22/21 History aspirin 81 mg tablet,delayed 81 mg PO QAM #30 tabs 10/18/21 10/22/21 Rx release clopidogrel 75 mg tablet 75 mg PO QAM 10/19/21 10/22/21 History Patient History Medical History Abnormal PSA follows with urology in [place]. Acute confusion Complete heart block s/p ICD per records [employer] with [place] leads Diabetes mellitus Resolved with weight loss. A1C 4.8 09/2019 - no issue Dilated cardiomyopathy EF 55-60% Dysphagia Gout History of congestive heart failure EF 55-60% Hx of tongue cancer 2017 and had chemo and radiation Hyperlipidemia Hypertension Hypothyroidism Left carotid stenosis greater than 90% stenosis LVH (left ventricular hypertrophy) severe Surgical History H/O umbilical hernia repair History of cataract surgery left and right History of implantable cardioverter-defibrillator (ICD) placement has Pacemaker/defib combo, placed 2005 for complete heart block. medtronic History of lung surgery had a nodule removed. 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 wedge resection in [place]. History of tonsillectomy History of uvulectomy Hx of colonoscopy Hx of esophagogastroduodenoscopy PEG (percutaneous endoscopic gastrostomy) status placed at [facility] 2017 due to tongue cancer and then it was removed S/P cholecystectomy S/P LASIK surgery of both eyes Family History Brother Prostate cancer Father , age 79 Multiple myeloma Mother , age 85 from "old age" No problems noted. Denies family history of Ovarian cancer Myocardial infarction Breast cancer Colorectal cancer Social History Smoking Status: Former smoker Years Smoked: 20; Cigarettes Per Day: has smoked socially for many years, never heavy; Smoking End Date: smoked heavily for many years; Second Hand Exposure: No; Do You Dip or Chew Tobacco: No; Tobacco Cessation Education Requested by Patient: No Hx Alcohol Use: Yes Alcohol type: hard liquor Hx Substance Use: No Preferred Language: Nepalese Communication Ability: Impaired Visual Impairment: No Limitations Hearing Ability: Normal Data Keyer Required: No Beliefs That Will Affect Care: None marital status: Current Living Situation: Spouse 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 occupational 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 How many Children do You have: 2 Other Information That Helps Us Care for You: No other: 2 sons Feels Safe at Home: Yes Safety Concerns: Feels Safe At This Time caffeine: No during the past year weight has: decreased > 10 lbs Seatbelt Use: always Assistive Devices: None Review of Systems Constitutional: no fever and no chills Eyes: as per Subjective / HPI Ear, Nose, Mouth, Throat: as per Subjective / HPI, + hoarseness and + dysphagia Respiratory: no cough and no dyspnea Cardiovascular: no chest pain and no palpitations Gastrointestinal: no nausea and no vomiting Genitourinary: no dysuria Musculoskeletal: no myalgia Integumentary: no rash Neurologic: as per Subjective / HPI; no gait abnormality, no localized weakn ess, no loss of sensation, no headache(s), no confusion and no memory loss Psychiatric: no depression and no anxiety Hematologic / Lymphatic: no easy bleeding and no easy bruising Exam (Neuro) Constitutional: well developed and well nourished; no acute distress Eyes: normal visual mane by confrontation, PERRL, normal accommodation and EOM intact bilaterally; no fundoscopic abnormality, no nystagmus and no papilledema Cardiovascular: Vessels: normal carotid upstroke; no carotid bruit Neurologic: Oriented to:: Person, Place and Time Memory: Short Term Intact and Remote Intact Attention: Span Intact and Concentration Intact Language: Naming Objects and Repeating Phrases Speech Fluency: Dysarthria; negative Dysfluency Speech Aphasia: negative Aphasia Fund of Knowledge: Current Events, Past History and Vocabulary Cranial Nerves: Normal II (Visual mane full to confrontation, visual acuity normal), III, IV, (Pupils equal round reactive to light and accommodation, eye movements normal), V (Facial sensation intact), VII (There is no facial droop or weakness), VIII (Hearing intact), IX, X (Palate elevates to midline), XI (Shoulder shrug intact) and XII (Tongue protrudes to midline) Motor Strength: Normal Lower Extremities and Normal Upper Extremities; negative Pronator Drift Motor Tone: Normal Lower Extremities and Normal Upper Extremities Muscle Bulk/Involuntary Movements: No Involuntary Movements; negative Muscle Atrophy Sensation: Light Touch Intact, Pain/Temperature Intact, Vibration Intact and Proprioception Intact Coordination: Normal; negative Limited Balance, Dysdiadochokinesia, Finger-Nose Abnormal or Heel-Biggs Abnormal Deep Tendon Reflexes: Rt Triceps: 2+, Lt Triceps: 2+, Rt Biceps: 2+, Lt Biceps: 2+, Rt Brachioradialis: 2+, Lt Brachioradialis: 2+, Rt Patellar: 2+, Lt Patellar: 2+, Rt Ankle: 2+ and Lt Ankle: 2+ Special Tests: negative Babinski Present Gait: Normal Station and Gait Results & Data ([facility]) Vital Signs (Past 12 Hours) Vital Signs Temp Pulse Pulse Resp BP BP Pulse Ox 10/26/21 07:00 70 10/26/21 11:06 36.6 C 71 18 129/76 94 10/26/21 07:41 36.7 C 70 18 155/83 H 92 10/26/21 06:41 36.5 C 74 20 167/88 H 93 10/26/21 03:26 36.6 C 72 20 158/77 H 93 O2 Del Method 10/26/21 07:00 10/26/21 11:06 Room Air 10/26/21 07:41 Room Air 10/26/21 06:41 Room Air 10/26/21 03:26 Room Air Laboratory Results I reviewed labs completed October 24, 2021. WBC 5.21, hemoglobin 11.6, hematocrit 34.4, MCV 93.7, platelet count 109, sodium 141, potassium 4.1, BUN 17, creatinine 1.00, glucose 95, calcium 8.7, magnesium 1.7 Diagnostic Findings Imaging including previous CT of the head, CT angiography of the head and neck, and most recently completed CT of the head are as described above in the history of present illness. Electrocardiogram completed on October 24, 2021 revealed an AV dual paced rhythm, biventricular pacemaker detected. An echocardiogram completed October 18, 2021 revealed normal left ventricular size and systolic function, ejection fraction 55 to 60%, no regional wall motion abnormalities, severe concentric left ventricular hypertrophy. There was moderate left atrial dilation. There is a sclerotic aortic valve without significant stenosis. No ASD visualized. No right to left interatrial shunt visualized following agitated saline administration. Coding Level of Care Code 55668 Initial Inpt Care Lvl 3 Diagnoses S/P carotid endarterectomy Z98.890 Swallowing dysfunction R13.10 H/O TIA (transient ischemic attack) and stroke Z86.73
--- NOTE | 2021-10-26 15:56 | CT Scan Report ---
CT OF THE HEAD WITHOUT CONTRAST CLINICAL HISTORY: post endarterectomy. intermittent aphasia and dysphagia. Unable to undergo MRI. COMPARISON STUDY: Head CT and CTA of the head October 18, 2021. CT DOSE: 718.01 mGycm TECHNIQUE: Helical axial images of the head were obtained without IV contrast. Automated exposure con trol was utilized for the study. A dose lowering technique was utilized adhering to the principles o f ALARA. FINDINGS: No acute intracranial hemorrhage, midline shift or mass effect is present. White matter hyp odensities are unchanged. Equivocal loss of herbert-white differentiation within the left frontal lobe s hown on axial images , 22 and 23 of 32. The ventricular system is unremarkable. The basal cisterns are patent. No extra-axial collections are present. There are no findings to suggest acute dural sinu s thrombosis or acute territorial infarct. No significant calvarial abnormalities are present. Visual ized portions of the sinuses and mastoid air cells are clear. IMPRESSION: 1. No acute intracranial hemorrhage or mass effect. 2. Equivocal loss of herbert-white differentiation within the left frontal lobe, as described above. Thi s is likely artifactual however an acute infarct cannot be excluded. Short-term follow-up head CT is recommended if unable to undergo MRI. ACT 112: Negative or not required by law. Electronically signed by: Leland Olvera M.D. 10/26/2021 3:55 PM
[2021-10-27] MEDS: D5W AND 1/2NSS 1,000 ML IV SCH ×3 (06:34→22:07)
[2021-10-27] MEDS: LEVOTHYROXINE SODIUM 150 MCG TABLET PO SCH (06:51)
--- NOTE | 2021-10-27 09:48 | Neurology Progress Note ---
Date of Service October 27, 2021 Assessment & Plan (1) H/O TIA (transient ischemic attack) and stroke: (2) S/P carotid endarterectomy: (3) Recurrent laryngeal nerve paralysis: (4) Swallowing dysfunction: Plan History of TIA and stroke localizing to the left cerebral hemisphere occurring in the context of a severe proximal left internal carotid artery stenosis, now status post endarterectomy, unfortunately complicated by what looks like an injury to the left recurrent laryngeal nerve. 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 I note that he has had dysphagia documented previously in the medical record with abnormal videofluoroscopic swallowing studies in 2019. He does have some mild expressive aphasia, in particular difficulty with less commonly used words. No difficulty with language comprehension, however. His head CT's do reveal some evidence of small chronic strokes within the left cerebral hemisphere although possible acute to subacute stroke not excluded at this time. I have recommended a repeat CT of the head to be done today. Patient is unable to have a brain MRI as his pacer is not compatible. Patient should continue with dual antiplatelet therapy with plan to transition to Plavix monotherapy after 3 weeks as discussed previously. He should continue with atorvastatin at the current dosage as well. Speech and swallowing evaluations, would likely benefit from speech therapy to address his mild expressive aphasia. Speech therapy could be continued as an outpatient as well. Plan for PEG tube placement next week. As indicated previously, in many instances of injury to the recurrent laryngeal nerve during CEA, postoperative dysphagia and dysphonia resolved within a few weeks. Prognosis may vary, however. Would consider outpatient ENT evaluation, direct visualization of the vocal cords? Patient does follow with [facility], last saw Dr. 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 Admission and Anticipated Discharge Date Admission Date: October 22, 2021 Subjective Follow-up for dysarthria, dysphagia, recent carotid endarterectomy Patient denies any change or new neurologic symptoms since I last saw him yesterday afternoon. Continues to have a hoarse voice. Has failed a recent swallowing evaluation. Continues to report mild difficulty with word finding/expressive speech. No difficulty with verbal comprehension. No further episodes of vision loss. Denies any episodes of unilateral weakness or sensory loss. No headache. Patient evaluated while he was sitting up comfortably in a bedside chair. Repeat CT of the head completed yesterday per my review did not reveal any significant change compared to prior study although I did note several small chronic appearing infarcts within the left cerebral hemisphere which I felt likely contributed to his intermittent word finding difficulty/expressive aphasia. The interpreting radiologist did find some evidence of equivocal loss of the herbert-white junction within the left frontal lobe potentially consistent with a subacute infarct not seen on previous imaging. However, the finding could be artifactual. A short-term follow-up CT of the head was recommended as patient is unable to have MRI. I did independently review these images again and was able to appreciate the subtle findings as described by the interpreting radiologist. Review of Systems Eyes: as per Subjective / HPI; no blind spots and no diplopia Neurologic: as per Subjective / HPI; no gait abnormality, no localized weakness, no loss of sensation, no headache(s) and no memory loss Results & Data ([facility]) Vital Signs (Past 12 Hours) Vital Signs Temp Pulse Pulse Resp BP Pulse Ox O2 Del Method 10/27/21 07:39 36.8 C 77 20 159/85 H 98 Room Air 10/27/21 03:08 36.5 C 70 16 162/83 H 97 Room Air 10/26/21 22:17 73 10/26/21 23:03 36.6 C 70 18 158/87 H 96 Room Air 10/26/21 22:32 Room Air Exam (Neuro) Neurologic: Oriented to:: Person, Place and Time Memory: Short Term Intact and Remote Intact Attention: Span Intact and Concentration Intact Language: negative Naming Objects (Patient did exhibit some difficulty naming parts of objects or perhaps less common words) Speech Fluency: Dysfluency; negative Dysarthria Fund of Knowledge: Current Events, Past History and Vocabulary Cranial Nerves: Normal II, III, IV, , V, VII, VIII, IX, X, XI and XII Motor Strength: Normal Lower Extremities and Normal Upper Extremities; negative Hemiparesis Muscle Bulk/Involuntary Movements: No Involuntary Movements Coordination: Normal; negative Finger-Nose Abnormal Coding Level of Care Code 11354 Subseq Hosp Care Lvl 2 Diagnoses H/O TIA (transient ischemic attack) and stroke Z86.73 S/P carotid endarterectomy Z98.890 Recurrent laryngeal nerve paralysis J38.00 Swallowing dysfunction R13.10
--- NOTE | 2021-10-27 10:07 | Surgery Progress Note ---
Date of Service October 27, 2021 Assessment & Plan (1) S/P carotid endarterectomy: Plan: no changes in neuro status (2) Swallowing dysfunction: Plan: strict npo peg hopefully friday Admission and Anticipated Discharge Date Admission Date: October 22, 2021 Subjective No new complaints Physical Exam Constitutional: WD/WN, vitals as above Neck: trachea midline Respiratory: normal respiratory effort; no respiratory distress Cardiovascular: Rate/Rhythm: regular rate and regular rhythm Skin: + incision (dry and clean) Neurologic: moves all extremities; + CN's not intact Psychiatric: Orientation: alert Results & Data ([facility]) Vital Signs (Past 12 Hours) Vital Signs Temp Pulse Pulse Resp BP Pulse Ox O2 Del Method 10/27/21 07:39 36.8 C 77 20 159/85 H 98 Room Air 10/27/21 03:08 36.5 C 70 16 162/83 H 97 Room Air 10/26/21 22:17 73 10/26/21 23:03 36.6 C 70 18 158/87 H 96 Room Air 10/26/21 22:32 Room Air
[2021-10-27] MEDS ORDERED: bisacodyL 10 MG SUPP PR PRN (10:08)
--- NOTE | 2021-10-27 10:58 | CT Scan Report ---
CT head/brain wo con CLINICAL HISTORY: 86 years-old Male with evolving left hemispheric stroke? s/p LCEA. Acute strokelik e symptoms TECHNIQUE: Multiple axial CT images of the head were obtained without contrast. A dose lowering tech nique was utilized adhering to the principles of ALARA. CT DOSE: 614.27 mGy.cm COMPARISON: Head CT 10/26/2021 FINDINGS: No acute intracranial hemorrhage, midline shift, intracranial mass, hydrocephalus, territorial ischem ia or abnormal extra-axial collection. Mild involutional changes. White matter hypodensities suggest chronic microvascular ischemic disease. Ill-defined hypodensity of the left frontal lobe on image 22 series 2 redemonstrated. The calvarium is intact. Prior bilateral lens repair. The paranasal sinuses, mastoid air cells, and m iddle ear cavities are clear. IMPRESSION: 1. No acute intracranial hemorrhage or acute territorial infarct. 2. Ill-defined area of decreased attenuation involving the left frontal lobe redemonstrated, again fa vored to be artifactual. A small acute infarct is considered less likely. 3. Involutional changes with chronic microvascular ischemic disease. ACT 112: Negative or not required by law. The above report was generated using voice recognition software. It may contain grammatical, syntax o r spelling errors. Electronically signed by: Nathaniel Wray M.D. 10/27/2021 10:55 AM
[2021-10-27] MEDS: HEPARIN SOD 5,000 UNIT/0.5 ML VIAL SQ SCH (22:07)
[2021-10-28] MEDS: LEVOTHYROXINE SODIUM 150 MCG TABLET PO SCH (06:28)
[2021-10-28 06:29] LABS: Basophils # (auto) 0.02 K/uL (0-0.2); Basophils % (auto) 0.6 %; Eosinophils # (auto) 0.11 K/uL (0-0.50); Eosinophils % (auto) 3.1 %; Hematocrit (blood only) 31.4 % (40.1-51.0); Hemoglobin 10.8 g/dl (14.0-18.0); Immature Granulocytes # (auto) 0.01 K/uL (0.00-0.02); Immature Granulocytes % (auto) 0.3 %; Lymphocytes # (auto) 0.45 K/uL (1.2-3.4); Lymphocytes % (auto) 12.9 %; Mean Corpuscular Hemoglobin 31.4 pg (25.0-34.0); Mean Corpuscular Hgb Conc 34.4 g/dL (32.0-36.0); Mean Corpuscular Volume 91.3 fL (80.0-100.0); Monocytes # (auto) 0.41 K/uL (0.24-0.82); Monocytes % (auto) 11.7 %; Neutrophils % (auto) 71.4 %; Platelet Count 121 K/uL (130-400); RDW Coefficient of Variation 12.8 % (11.5-14.5); RDW Standard Deviation 42.3 fL (36.4-46.3); Red Blood Count 3.44 M/uL (4.63-6.08)
[2021-10-28] MEDS: D5W AND 1/2NSS 1,000 ML IV SCH ×3 (06:29→21:05)
[2021-10-28 06:42] LABS: INR 1.1 (0.9-1.1); Partial Thromboplastin Time 28.6 Seconds (21.0-31.0); Prothrombin Time 11.8 Seconds (9.0-12.0)
[2021-10-28 06:51] LABS: Albumin Globulin Ratio 1.4 (0.9-2); Albumin Level 3.3 gm/dl (3.4-5.0); Calcium 8.3 mg/dl (8.5-10.1); Creatinine Clr Calc Pharmacy 67.8 ml/min; Est GFR (Non-African American) 78.5 ml/min; Globulin 2.3 gm/dl (2.5-4.0); Phosphorus 3.1 mg/dl (2.5-4.9); Potassium 3.5 mmol/L (3.5-5.1); Total Protein 5.6 gm/dl (6.0-8.3)
--- NOTE | 2021-10-28 09:17 | Surgery Progress Note ---
Date of Service October 28, 2021 Assessment & Plan (1) S/P carotid endarterectomy: Plan: no changes in neuro status (2) Swallowing dysfunction: Plan: Continue strict npo Peg tube placement Friday. Admission and Anticipated Discharge Date Admission Date: October 22, 2021 Subjective No new complaints. No choking on saliva. Physical Exam Constitutional: WD/WN, vitals as above Respiratory: normal respiratory effort; no respiratory distress Cardiovascular: Rate/Rhythm: regular rate and regular rhythm Gastrointestinal (Abdomen): Inspection/Auscultation: abdomen normal to inspection; abdomen not distended Percussion/Palpation: abdomen soft; abdomen nontender Musculoskeletal: no cyanosis or clubbing, extremities motor strength 5/5 Skin: + incision (dry and clean) Neurologic: moves all extremities; + CN's not intact Psychiatric: Orientation: oriented x 3 Results & Data ([facility]) Vital Signs (Past 12 Hours) Vital Signs Temp Pulse Pulse Pulse Resp BP BP 10/28/21 08:04 36.8 C 72 18 146/81 H 10/28/21 03:36 36.6 C 76 16 149/77 H 10/27/21 22:26 77 10/27/21 23:13 36.5 C 70 16 158/70 H Pulse Ox O2 Del Method 10/28/21 08:04 95 Room Air 10/28/21 03:36 95 Room Air 10/27/21 22:26 10/27/21 23:13 97 Room Air
[2021-10-28] MEDS: HEPARIN SOD 5,000 UNIT/0.5 ML VIAL SQ SCH ×2 (10:30→21:03)
[2021-10-29] MEDS: D5W AND 1/2NSS 1,000 ML IV SCH ×2 (05:09→13:32)
[2021-10-29] MEDS: LEVOTHYROXINE SODIUM 150 MCG TABLET PO SCH (05:10)
--- NOTE | 2021-10-29 08:38 | Communication Note ---
Date of Service: October 29, 2021 Patient's last dose of Plavix was 10/24/21. He remains NPO due to dysphagia. Please keep NPO and hold Plavix and plan for EGD with PEG placement on 10/30/21. Will order IV Ancef 1 dose to be given an hour prior to his PEG placement tomorrow. Agree with KUNAL Schmitt as above Abd: Soft, NT, ND NPO PEG tube scheduled for 10/30/2021 at 9 AM
--- NOTE | 2021-10-29 09:35 | Neurology Progress Note ---
Date of Service October 29, 2021 Assessment & Plan (1) H/O TIA (transient ischemic attack) and stroke: (2) S/P carotid endarterectomy: (3) Recurrent laryngeal nerve paralysis: (4) Swallowing dysfunction: Plan Patient has a history of TIA versus small stroke in September. Symptoms started October 14 with exacerbations on October 17. At that time, CT scans did not show any infarct (and we could not get an MRI of the brain because of pacemaker incompatibility). He had severe stenosis in the left internal carotid artery and underwent carotid endarterectomy October 22. He has had recurrent symptoms postoperatively with some vision issues in his left eye and mild expressive aphasia. He also had trouble swallowing and a hoarse voice. CT scan of the head this time revealed a small left frontal infarct. I cannot be certain whether this is old from earlier in September or immediately postop. In any event, currently he clinically is back to baseline except for the hoarse raspy voice and trouble swallowing. Recommendations: 1. Increase activity as able and continue physical, occupational, and (especially) speech therapy 2. Patient is going for the PEG tube placement. 3. Once the PEG tube is placed and gastroenterology agrees, reinitiate 81 mg aspirin +75 mg clopidogrel daily for 3 weeks, then remain on 75 mg Clopidogrel alone 4. could consider ENT evaluation as an outpatient given his history of squamous cell carcinoma at the current issues of raspy voice and dysphagia overall, I spent a total of 45 minutes with this case including review of records, review of CT films, direct evaluation the patient at bedside, and discussion of the case with the patient and RN at bedside and doctor some bony, including differential diagnosis and treatment options. Admission and Anticipated Discharge Date Admission Date: October 22, 2021 Subjective Patient currently feels much better and has no pain, headache, dizziness, vision issues, speech problems, weakness, or numbness. He knows that he does not swallow correctly. He is currently NPO having failed dysphagia screening and is going to be going for a PEG tube. I saw this patient October 18 for transient confusion and aphasia. CT scan of the head was unremarkable and he could not get an MRI because of his pacemaker incompatibility. Because of a left carotid bruit CT angiography of the head and neck were obtained. there were no significant stenoses in the head but there was a significant stenosis of the left internal carotid artery With an area of ulcerated plaque.. Echocardiogram showed significant left ventricular hypertrophy and he was discharged on 81 mg aspirin tablet daily. On October 22 he underwent a left carotid endarterectomy and postoperatively had decreased vision in the left eye and expressive aphasia. Repeat CT scan of the head showed a possible left frontal lacune, not present on previous CT scans. He has a hoarse voice and is not swallowing correctly. left recurrent laryngeal nerve injury is suspected. He saw Dr. Escudero who initiated 81 mg aspirin + 75 mg clopidogrel daily. All p.o. meds, however, are being held because of the dysphagia Blood pressure is 167/97 The patient has a history of squamous cell carcinoma of the base of the tongue post chemotherapy, radiation therapy, and a left lower lobe wedge resection. Results & Data ([facility]) Vital Signs (Past 12 Hours) Vital Signs Temp Pulse Pulse Pulse Resp BP BP 10/29/21 07:40 36.5 C 77 18 167/97 H 10/29/21 07:35 78 10/29/21 03:12 36.3 C L 75 18 169/88 H 10/29/21 00:00 71 10/28/21 22:57 36.4 C L 72 16 174/90 H Pulse Ox O2 Del Method 10/29/21 07:40 98 Room Air 10/29/21 07:35 10/29/21 03:12 97 Room Air 10/29/21 00:00 10/28/21 22:57 97 Room Air Exam (Neuro) Physical Exam: He is awake and alert. Voice is hoarse but he has no obvious aphasia. He can name objects quite well, read and repeat. There is no e xpressive aphasia this morning. Mood and affect are normal and appropriate. Thought processes are intact. Extraocular eye muscles are intact without nystagmus. There is no facial droop and tongue is midline. Coordination is normal in the arms without tremor or ataxia. Strength seems 5/5 diffusely in all major muscle groups in arms and legs both proximally and distally. Toes are downgoing to plantar stimulation bilaterally. PG Care Time/CCT Total # of Minutes Spent Total Time Spent with Patient: Total time spent is greater than 50% in coordination of care (as documented) at patient's floor/unit and/or counseling patient: Coding Level of Care Code 78401 Subseq Hosp Care Lvl 3 Diagnoses H/O TIA (transient ischemic attack) and stroke Z86.73 S/P carotid endarterectomy Z98.890 Recurrent laryngeal nerve paralysis J38.00 Swallowing dysfunction R13.10
[2021-10-29] MEDS: HEPARIN SOD 5,000 UNIT/0.5 ML VIAL SQ SCH ×2 (11:26→21:23)
--- NOTE | 2021-10-29 18:29 | Hospitalist Consultation ---
Date of Consultation October 29, 2021 Assessment & Plan (1) Stroke-like symptoms: 86 year old male w/ PMHx of CKD, GERD, metastatic SCC of tongue s/p chemoradiation, ICD, HTN, hypothyroidism, diet-controlled DM who presented w/ several episodes of stroke-like symptoms (transient L vision loss and mild expressive aphasia) and is status post L CEA on 10/22/21. Hospitalist service has been consulted for medical management. TIA vs small stroke - Patient has had 1 episode of partial L vision loss 6 months ago. He had a similar episode on 10/14/21 and again on 10/17/21, prompting a brief admission from 10/17/21-10/18/21. Neuro was consulted. CTA head/neck did not show stroke; MRI unobtainable because of incompatible ICD. - Patient had L CEA on 10/22/21 and on 10/23/21 had reoccurence of the above symptoms and transient amaurosis fugax of his L eye. The mild expressive aphasia continues. Initially, it was unclear if patient's symptoms were new as they were subtle. Per repeat CT head and w/ discussion btwn neurology and radiology, possible artifact vs small acute stroke. - Labs, imaging, and ecg reviewed. Area of suspicion on CT "left frontal lobe" consistent w/ expressive aphasia. - Baby ASA, statin, and Plavix will be resumed after placement of PEG tube. Plan is for 3 weeks of ASA/Plavix and then Plavix monotherapy - Neurology follow, recs appreciated. (2) Swallowing dysfunction: S/p head/neck radiation treatments in 2019. PEG placement planned for 10/30/21, GI following. Speech re-eval pending. Consider ENT consult for dysphagia. - after tube feed begins, follow labs to monitor for refeeding syndrome. Patient has been NPO for ~5 days+. - bulk system operator consulted (3) S/P carotid endarterectomy: POD 7 L CEA, for symptomatic >90% occlusion. See above. restart DAPT and statin after PEG tube placed (4) Hypertension: Chronic. systolic to 180s noted. As patient is 1 week out from onset of stroke- like symptoms, permissive hypertension is not indicated. Home regimen held because strict NPO. PRN hydralazine for SBP >180. Plan to restart home Coreg after PEG tube placed (5) History of congestive heart failure: Hx of exacerbation in past. Presumed diastolic CHF. 10/24/21 echo w/ EF 55-60%. Severe LVH. Moderate L atrial dilation. - provide IV fluids cautiously - monitor Is/Os and daily weights (6) Hypothyroidism: Chronic. Has not received home po levothyroxine in 5 days Provide half dose levothyroxine IV q72h until able to restart through PEG (7) Squamous cell carcinoma of base of tongue: Diagnosed in 2018, w/ mets to lungs. Nodule s/p resection. S/p chemo and radiation for SCC. In remission. (8) Biventricular ICD (implantable cardioverter-defibrillator) in place: Complete heart block in 2005 and has had ICD + revisions. (9) Chronic kidney disease, stage 3a: Baseline Cr 1. At baseline. Follow BMP. Avoid nephrotoxic agents. (10) Gout: Hx of. Not on medication. (11) Gastroesophageal reflux disease: Chronic. add on IV Protonix BID until can be given through PEG Plan Diet, fluids: NPO. Discontinued D5 1/2 NSS at 125mL/hr. Will restart at 50mL/hr in the morning. DVT ppx: Heparin q12 sq, hold 10/30/21 AM. dispo: med tele code: full Supervising Physician Co-Signing Physician Notes I personally examined the patient and verified all vora points of history and exam, discussed case, and agree with decision making with Dr. Carranza with the following additions/exceptions: S-this patient is an 86-year-old male with history of severe DIONNA, CVA, squamous cell carcinoma of the tongue with mets to the lung in remission, CKD stage III, HTN, gout, hypothyroidism complete heart block s/p ICD/pacer, chronic anemia who was admitted for carotid endarterectomy with vascular surgery. Since the surgery he has had persistent dysphagia and was found to have significant swallowing difficulties and PEG tube placement was recommended. He was also having recurrent possible TIA's and seen by neurology. He has been without any of his oral medications or without food for the last 5 days, but has remained on D5 half-normal saline for hydration. The hospital service was consulted for medical management. Plan is for PEG tube placement tomorrow O- Vitals reviewed Gen: AAOx3, NAD HEENT: Anicteric sclerae, EOMI CV: RRR no mgr nl S1S2 Pulm: CTAB no wcr Ext: No edema Skin: No rashes, warm/dry Labs, Rads, and ECG reviewed A/P-this patient is an 86-year-old male with history as above, here status post left carotid endarterectomy, with severe dysphagia now requiring PEG tube placement. Will order as needed IV hydralazine for uncontrolled hypertension in the absence of being able to take his home carvedilol-restart home carvedilol when able to Restart aspirin and Plavix once PEG tube placed and then go to Plavix m onotherapy in approximately 2 more weeks as he already received 1 week of therapy prior to surgery Plan for PEG tube placement tomorrow-appreciate dietary consultation with recommendations for tube feeds and free water flushes when able to start using the tube. Would titrate up slowly and watch for refeeding syndrome, follow CBC, CMP, magnesium, phosphorus. Continue hypotonic maintenance IV fluids with D5 until getting adequate tube feeds Continue speech therapy PT recommending patient return home Case management is involved and will be setting the patient up with home health and tube feeds at home History of Present Illness Reason for Consultation: medical management Requesting Physician: Dr. Corley Attending Physician: Dr. Ramos History of Present Illness 86 year old male w/ PMHx of CKD, GERD, metastatic SCC of tongue s/p chemoradiation, ICD, HTN, hypothyroidism, and diet-controlled DM who presented last admission on 10/17/21 for stroke-like symptoms (left visual field deficits and mild expressive aphasia). He was discharged on 10/18/21 and returned on 10/22/21 for left carotid endarterectomy. His symptoms returned on 10/23/21 when he developed transient left amaurosis fugax and recurrence of mild expressive aphasia. Neurology has been following and per CT head, artifact v small stroke, new from 10/18/21 scan. MRI could not be obtained because of incompatible ICD. GI is planning to place PEG tube on 10/30/21 for swallowing dysfunction 2/2 radiation therapy several years ago. Dispo planning (facility placement) ongoing per case management. Patient is a former smoker. He consumes 3-4oz of hard liquor daily. He currently denies any symptoms other than slight occasional word-finding difficulty. He denies headache, blurry vision, chest pain, shortness of breath, or weakness. Hospitalist service has been consulted for medical management. History is slightly limited by patient's baseline mild memory problems. Allergies Allergy/AdvReac Type Severity Reaction Status Date / Time spironolactone Allergy Severe Hypotension; Verified 10/22/21 07:42 [From Aldactone] Fatigue levofloxacin [From Levaquin] Allergy Intermediate rash at IV Verified 10/22/21 07:42 site rosuvastatin [From Crestor] AdvReac Unknown Elevated Verified 10/22/21 07:42 liver enzymes Home Medications Medication Instructions Recorded Confirmed Type omeprazole 20 mg capsule,delayed 20 mg PO BID PRN Acid Reflux 09/16/19 10/22/21 History release carvedilol 12.5 mg tablet 12.5 mg PO BID #180 tabs 04/20/21 10/22/21 Rx atorvastatin 20 mg tablet 20 mg PO HS 10/17/21 10/22/21 History coenzyme Q10 100 mg capsule (Co 100 mg PO QAM 10/17/21 10/22/21 History Q-10) levothyroxine 150 mcg tablet 150 mcg PO QAM 10/17/21 10/22/21 History magnesium oxide 400 mg PO QAM 10/17/21 10/22/21 History aspirin 81 mg tablet,delayed 81 mg PO QAM #30 tabs 10/18/21 10/22/21 Rx release clopidogrel 75 mg tablet 75 mg PO QAM 10/19/21 10/22/21 History Patient History Medical History (Updated 10/29/21 @ 20:01 by Darion Carranza MD) Abnormal PSA follows with urology in [place]. Acute confusion Complete heart block s/p ICD per records [employer] with [place] leads Diabetes mellitus Resolved with weight loss. A1C 4.8 09/2019 - no issue Dilated cardiomyopathy EF 55-60% Dysphagia Gout History of congestive heart failure EF 55-60% Hx of tongue cancer 2017 and had chemo and radiation Hyperlipidemia Hypertension Hypothyroidism Left carotid stenosis greater than 90% stenosis LVH (left ventricular hypertrophy) severe Surgical History H/O umbilical hernia repair History of cataract surgery left and right History of implantable cardioverter-defibrillator (ICD) placement has Pacemaker/defib combo, placed 2005 for complete heart block. [employer]tronic History of lung surgery had a nodule removed. 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 wedge resection in [place]. History of tonsillectomy History of uvulectomy Hx of colonoscopy Hx of esophagogastroduodenoscopy PEG (percutaneous endoscopic gastrostomy) status placed at [facility] 2018 due to tongue cancer and then it was removed S/P cholecystectomy S/P LASIK surgery of both eyes Family History Brother Prostate cancer Father , age 79 Multiple myeloma Mother , age 85 from "old age" No problems noted. Denies family history of Ovarian cancer Myocardial infarction Breast cancer Colorectal cancer Social History Smoking Status: Former smoker Years Smoked: 20; Cigarettes Per Day: has smoked socially for many years, never heavy; Smoking End Date: smoked heavily for many years; Second Hand Exposure: No; Do You Dip or Chew Tobacco: No; Tobacco Cessation Education Requested by Patient: No Hx Alcohol Use: Yes Alcohol type: hard liquor Hx Substance Use: No Preferred Language: Japanese Communication Ability: Impaired Visual Impairment: No Limitations Hearing Ability: Normal Manager Telecom Required: No Beliefs That Will Affect Care: None marital status: Current Living Situation: Spouse current occupational status: retired 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 NAD. Cooperative. Answering questions appropriately. HEENT: Atraumatic, normocephalic. EOMI. PERRL. Very slight horizontal nystagmus when looking to left. Oropharynx wnl. Pulm: CTAB. -wheezes, -rales, -rhonchi. No respiratory distress. Cardiac: RRR, -mrg. Trace bilat LE edema at shins. Abdominal: Nontender, nondistended, soft. Msk: Moving all extremities. Integ: Warm, dry, intact. Neuro: No dysmetria. CN II-XII intact. No dysarthria; able to say tongue twister. Very slight expressive aphasia. Normal strength and sensation of extremities. Results & Data Results & Data ([facility]) Vital Signs (Past 12 Hours) Vital Signs Temp Pulse Pulse Pulse Resp BP BP 10/29/21 15:00 36.6 C 67 20 152/90 H 10/29/21 15:27 71 10/29/21 11:35 36.7 C 69 18 154/81 H 10/29/21 07:40 36.5 C 77 18 167/97 H 10/29/21 07:35 78 Pulse Ox O2 Del Method 10/29/21 15:00 97 Room Air 10/29/21 15:27 10/29/21 11:35 96 Room Air 10/29/21 07:40 98 Room Air 10/29/21 07:35 Laboratory Results Intake and Output 10/29/21 10/29/21 10/29/21 06:59 14:59 22:59 Intake Total 1000 / 2825 1000 / 1000 Output Total 850 / 850 Balance 150 / 1975 1000 / 1000 Intake: IV 1000 / 2825 1000 / 1000 D5w and 1/2Nss 1,000 ml @ 125 1000 / 2825 1000 / 1000 mls/hr IV .Q8H [facility] Rx#:[id number] Oral 0 / 0 Output: Urine 850 / 850 Other: Other Intake Source npo npo # Unmeasured Voids 3 Weight 92.9 kg Weight Measurement Method Standing Scale Diagnostic Findings Videofluoroscopic Swallow 10/25/21 09:30 FL video swallow HISTORY: Difficulty swallowing. Assess for aspiration. TECHNIQUE: Video fluoroscopic evaluation of swallowing was performed in the AP and lateral projections by the speech pathology staff. The patient is fed nectar-thick and thin liquid barium, a barium coated wafer, and barium pudding. FLUOROSCOPY TIME: 3.1 minutes. A cine loop submitted. COMPARISON STUDY: Video swallow 06/13/2018. FINDINGS: There is again noted diffuse soft tissue thickening at the tongue base and epiglottis. This results in incomplete epiglottic deflection and suboptimal pharyngeal constriction. Therefore, there is significant residue within the vallecula and hypopharynx throughout the examination. This results in multiple episodes of delayed deep penetration to the level of the vocal cords with a few episodes of silent aspiration. IMPRESSION: 1. Incomplete epiglottic deflection throughout the examination resulting in multiple episodes of delayed deep penetration to the level of the vocal cords and a few episodes of silent aspiration. 2. Please see the speech pathologist report for detailed findings and recommendations. ACT 112: Negative or not required by law. Electronically signed by: Len Tony M.D. 10/25/2021 1:[address] 10/26/21 13:30 CT OF THE HEAD WITHOUT CONTRAST CLINICAL HISTORY: post endarterectomy. intermittent aphasia and dysphagia. Unable to undergo MRI. COMPARISON STUDY: Head CT and CTA of the head October 18, 2021. CT DOSE: 718.01 mGycm TECHNIQUE: Helical axial images of the head were obtained without IV contrast. Automated exposure control was utilized for the study. A dose lowering technique was utilized adhering to the principles of ALARA. FINDINGS: No acute intracranial hemorrhage, midline shift or mass effect is present. White matter hypodensities are unchanged. Equivocal loss of herbert-white differentiation within the left frontal lobe shown on axial images 21, 22 and 23 of 32. The ventricular system is unremarkable. The basal cisterns are patent. No extra-axial collections are present. There are no findings to suggest acute dural sinus thrombosis or acute territorial infarct. No significant calvarial abnormalities are present. Visualized portions of the sinuses and mastoid air cells are clear. IMPRESSION: 1. No acute intracranial hemorrhage or mass effect. 2. Equivocal loss of herbert-white differentiation within the left frontal lobe, as described above. This is likely artifactual however an acute infarct cannot be excluded. Short-term follow-up head CT is recommended if unable to undergo MRI. ACT 112: Negative or not required by law. Electronically signed by: Leland Olvera M.D. 10/26/2021 3:[address] 10/27/21 09:49 CT head/brain wo con CLINICAL HISTORY: 86 years-old Male with evolving left hemispheric stroke? s/p LCEA. Acute strokelike symptoms TECHNIQUE: Multiple axial CT images of the head were obtained without contrast. A dose lowering technique was utilized adhering to the principles of ALARA. CT DOSE: 614.27 mGy.cm COMPARISON: Head CT 10/26/2021 FINDINGS: No acute intracranial hemorrhage, midline shift, intracranial mass, hydrocep halus, territorial ischemia or abnormal extra-axial collection. Mild involutional changes. White matter hypodensities suggest chronic microvascular ischemic disease. Ill-defined hypodensity of the left frontal lobe on image 22 series 2 redemonstrated. The calvarium is intact. Prior bilateral lens repair. The paranasal sinuses, mastoid air cells, and middle ear cavities are clear. IMPRESSION: 1. No acute intracranial hemorrhage or acute territorial infarct. 2. Ill-defined area of decreased attenuation involving the left frontal lobe redemonstrated, again favored to be artifactual. A small acute infarct is considered less likely. 3. Involutional changes with chronic microvascular ischemic disease. ACT 112: Negative or not required by law. The above report was generated using voice recognition software. It may contain grammatical, syntax or spelling errors. Electronically signed by: Nathaniel Wray M.D. 10/27/2021 10:55 AM ECG Additional Comments: reviewed, paced rhytym Resident Activity Tracking Resident Involvement: Resident Care Provided Care Provided: Adult Hospital Medicine (1) Gout Chronicity: unspecified Gout etiology: unspecified cause Gout site: unspecified site Qualified Code(s): M10.9 - Gout, unspecified (2) Hypothyroidism Hypothyroidism type: acquired Qualified Code(s): E03.9 - Hypothyroidism, unspecified (3) Gastroesophageal reflux disease Esophagitis presence: without esophagitis Qualified Code(s): K21.9 - Gastro- esophageal reflux disease without esophagitis (4) Hypertension Hypertension type: essential hypertension Qualified Code(s): I10 - Essential (primary) hypertension
[2021-10-29] MEDS ORDERED: hydrALAZINE HCL 20 MG/ML VIAL IV PRN ×2 (19:23→23:12)
[2021-10-29] MEDS: PANTOprazole 40 MG in SYRINGE 0 ML IV SCH (21:22)
[2021-10-29] MEDS ORDERED: LABETALOL HCL IV 5 MG/ML 20ML IV PRN (23:13)
--- NOTE | 2021-10-29 23:23 | Billing Data ---
Date of Service October 29, 2021 Coding Level of Care Code 98600 Inpt Consult Level 3
[2021-10-30] MEDS ORDERED: ceFAZolin 2000MG 2,000 MG/15 ML SYR IV SCH (06:00)
[2021-10-30] MEDS ORDERED: ceFAZolin 1000MG 1,000 MG/7.5 ML SYR IV SCH (07:30)
[2021-10-30 08:07] LABS: Hematocrit (blood only) 31.9 % (40.1-51.0); Hemoglobin 10.9 g/dl (14.0-18.0); Mean Platelet Volume 9.9 fL (9.4-12.4); Platelet Count 126 K/uL (130-400); White Blood Count 3.51 K/ul (4.8-10.8)
[2021-10-30 08:27] LABS: Albumin Globulin Ratio 1.4 (0.9-2); Albumin Level 3.4 gm/dl (3.4-5.0); Calcium 8.6 mg/dl (8.5-10.1); Creatinine Clr Calc Pharmacy 60.4 ml/min; Est GFR (African American) 79.7 ml/min; Est GFR (Non-African American) 68.8 ml/min; Globulin 2.5 gm/dl (2.5-4.0); Magnesium 1.5 mg/dl (1.7-2.4); Phosphorus 3.4 mg/dl (2.5-4.9); Potassium 3.7 mmol/L (3.5-5.1); Prealbumin 10.9 mg/dl (20-40); Total Protein 5.9 gm/dl (6.0-8.3)
[2021-10-30 08:30] LABS: Mean Corpuscular Hemoglobin 30.8 pg (25.0-34.0); Mean Corpuscular Hgb Conc 34.2 g/dL (32.0-36.0); Mean Corpuscular Volume 90.1 fL (80.0-100.0); RDW Coefficient of Variation 12.7 % (11.5-14.5); RDW Standard Deviation 41.7 fL (36.4-46.3); Red Blood Count 3.54 M/uL (4.63-6.08)
--- NOTE | 2021-10-30 08:36 | Neurology Progress Note ---
Date of Service October 30, 2021 Assessment & Plan (1) H/O TIA (transient ischemic attack) and stroke: (2) S/P carotid endarterectomy: (3) Recurrent laryngeal nerve paralysis: (4) Swallowing dysfunction: Plan Patient has a history of TIA versus small stroke in September. Symptoms started October 14 with exacerbations on October 17. At that time, CT scans did not show any infarct (and we could not get an MRI of the brain because of pacemaker incompatibility). He had severe stenosis in the left internal carotid artery and underwent carotid endarterectomy October 22. He has had recurrent symptoms postoperatively with some transient vision issues in his left eye and mild expressive aphasia. He also had trouble swallowing and a hoarse voice. CT scan of the head this time revealed a small left frontal infarct. The stroke is more likely in relation to his recent surgery. Currently he clinically is back to baseline except for the hoarse, raspy voice and trouble swallowing. I do not detect any significant aphasia this morning. The etiology of the hoarse voice is likely a recurrent laryngeal nerve injury. if, indeed, this pre seated surgery, then it is due to his previous squamous cell carcinoma treatment (most likely radiation therapy). Otherwise, if it was postoperatively, it could be due to intubation or injury during the surgical procedure itself. Recommendations: 1. Increase activity as able and continue physical, occupational, and (especially) speech therapy. speech therapy should continue as an outpatient. 2. Patient is going for the PEG tube placement this morning. 3. Once the PEG tube is placed and gastroenterology agrees, reinitiate 81 mg aspirin +75 mg clopidogrel daily for 3 weeks, then remain on 75 mg clopidogrel alone 4. The patient needs an ENT evaluation as an outpatient in the next week or so. I spoke with Dr. Mcguire and he will see the patient as an outpatient, as Dr. Vaughn is on maternity leave. Consider laryngoscopy to visualize vocal cords and consider CT scan following the course of the recurrent laryngeal nerves. Obviously, I would leave this to ENT. Overall, I spent a total of 65 minutes with this case including review of records, direct evaluation the patient at bedside, and discussion of the case with the patient, his , and RN at bedside, Sol Wright Case Management, Dr. Mcguire ENT, and Dr. Corley, including differential diagnosis and treatment options. Admission and Anticipated Discharge Date Admission Date: October 22, 2021 Subjective Has no complaint of pain, headache, dizziness, weakness, numbness, confusion, or vision problems. He does have swallowing difficulties but he says he does not choke on his own saliva. He has a little bit of left-sided neck but not as as previously. The patient tells me that his hoarseness started the day before his surgery. He is quite adamant about that. His , who was present via phone for the interview, is not sure of this. Nevertheless, his hoarseness has been the same since surgery. Glucose is 92 this morning, blood pressure is 134/75 and he is afebrile. Results & Data ([facility]) Vital Signs (Past 12 Hours) Vital Signs Temp Pulse Pulse Resp BP BP Pulse Ox 10/30/21 08:05 79 10/29/21 21:30 154/71 H 10/30/21 03:30 36.6 C 69 16 134/75 95 10/30/21 00:00 70 10/29/21 23:11 36.4 C L 71 16 155/81 H 96 O2 Del Method 10/30/21 08:05 10/29/21 21:30 10/30/21 03:30 Room Air 10/30/21 00:00 10/29/21 23:11 Room Air Exam (Neuro) Physical Exam: he is awake and alert. His voice is little hoarse but he has no dysarthria. He speaks in sentences and has some mild hesitation at times but no blatant aphasia . Extraocular muscles are intact nystagmus. There is no facial droop or facial asymmetry. Tongue is midline and palate raises well. Neck is supple. Coordination is normal in the arms, without tremor or ataxia. Strength is symmetrical in the limbs both proximally and distally. He has no abnormal involuntary movements PG Care Time/CCT Total # of Minutes Spent Total Time Spent with Patient: Total time spent is greater than 50% in coordination of care (as documented) at patient's floor/unit and/or counseling patient: Coding Level of Care Code 80557 Subseq Hosp Care Lvl 3 Diagnoses H/O TIA (transient ischemic attack) and stroke Z86.73 S/P carotid endarterectomy Z98.890 Recurrent laryngeal nerve paralysis J38.00 Swallowing dysfunction R13.10 Time Spent (min) 65
--- NOTE | 2021-10-30 08:48 | Anesthesiology Consultation ---
Date of Service October 30, 2021 Assessment & Plan Chart Review Chart Review: Acceptable Risk for Surgery Consults Requested none ASA ASA3 Proposed Anesthesia Anesthesia Type: MAC Risk / Benefits Reviewed With: PT / POA / Parent / Guardian, Accepts Plan and Informed Consent Obtained History Surgery Operation Date: 10/22/21 09:20 Proposed Procedures p Left Carotid Endarterectomy - Pineda Corley MD Operation Date: 10/22/21 09:20 Proposed Procedures p Left Carotid Endarterectomy - Pineda Corley MD Operation Date: 10/30/21 09:15 Proposed Procedures p Esophagogastroduodenoscopy with Gastric Tube Placement Dr Prince - Reji Prince, DO Height/Weight Height: 6 ft Weight: 91.8 kg Allergies Allergy/AdvReac Type Severity Reaction Status Date / Time spironolactone Allergy Severe Hypotension; Verified 10/22/21 07:42 [From Aldactone] Fatigue levofloxacin [From Levaquin] Allergy Intermediate rash at IV Verified 10/22/21 07:42 site rosuvastatin [From Crestor] AdvReac Unknown Elevated Verified 10/22/21 07:42 liver enzymes Medications Home Medications Medication Instructions Recorded Confirmed Last Taken omeprazole 20 mg capsule,delayed 20 mg PO BID PRN Acid Reflux 09/16/19 10/22/21 Unknown release carvedilol 12.5 mg tablet 12.5 mg PO BID #180 tabs 04/20/21 10/22/21 10/22/21 06:30 atorvastatin 20 mg tablet 20 mg PO HS 10/17/21 10/22/21 10/21/21 20:30 coenzyme Q10 100 mg capsule (Co 100 mg PO QAM 10/17/21 10/22/21 10/21/21 08:30 Q-10) levothyroxine 150 mcg tablet 150 mcg PO QAM 10/17/21 10/22/21 10/22/21 06:30 magnesium oxide 400 mg PO QAM 10/17/21 10/22/21 10/21/21 20:30 aspirin 81 mg tablet,delayed 81 mg PO QAM #30 tabs 10/18/21 10/22/21 10/22/21 06:30 release clopidogrel 75 mg tablet 75 mg PO QAM 10/19/21 10/22/21 10/22/21 06:30 Active Medications Generic Name Dose Route Start Last Admin Trade Name Freq PRN Reason Stop Dose Admin Aspirin 81 mg 10/23/21 09:00 10/26/21 08:45 Aspirin 81 Mg Ectab PO 11/22/21 08:59 Not Given QAM LUNA Atorvastatin Calcium 20 mg 10/22/21 21:00 10/25/21 20:49 Atorvastatin 20 Mg Tab PO 11/21/21 20:59 Not Given HS LUNA Clopidogrel Bisulfate 75 mg 10/23/21 09:00 10/26/21 08:45 Clopidogrel Bisulfate 75 Mg Tab PO 11/22/21 08:59 Not Given QAM LUNA Heparin Sodium (Porcine) 5,000 units 10/27/21 21:00 10/29/21 21:23 Heparin Sod 5,000 Unit/0.5 Ml Vial SQ 11/26/21 20:59 5,000 units Q12 LUNA Administration Pantoprazole Sodium 40 mg/ 10 mls @ 5 mls/min 10/29/21 21:00 10/29/21 21:22 Syringe IV 11/28/21 20:59 5 mls/min BID LUNA Administration Levothyroxine Sodium 150 mcg 10/23/21 06:30 10/29/21 05:10 Levothyroxine Sodium 150 Mcg Tablet PO 11/22/21 06:29 Not Given DAILYBB LUNA Magnesium Oxide 400 mg 10/23/21 09:00 10/26/21 08:45 Magnesium Oxide 400 Mg Tab PO 11/22/21 08:59 Not Given QAM LUNA NPO Date Last Intake of Fluids: 10/22/21 Time Last Intake of Fluids: 00:05 Date Last Intake of Solids: 10/22/21 Time Last Intake of Solids: 00:05 Past Medical History Medical History (Updated 10/29/21 @ 20:01 by Darion Carranza MD) Abnormal PSA follows with urology in [place]. Acute confusion Complete heart block s/p ICD per records [employer] with [place] leads Diabetes mellitus Resolved with weight loss. A1C 4.8 09/2019 - no issue Dilated cardiomyopathy EF 55-60% Dysphagia Gout History of congestive heart failure EF 55-60% Hx of tongue cancer 2017 and had chemo and radiation Hyperlipidemia Hypertension Hypothyroidism Left carotid stenosis greater than 90% stenosis LVH (left ventricular hypertrophy) severe Exercise / Class Metabolic Activity III < 4 Walking/Shop/Light housework Past Family History Family History Brother Prostate cancer Father , age 79 Multiple myeloma Mother , age 85 from "old age" No problems noted. Denies family history of Ovarian cancer Myocardial infarction Breast cancer Colorectal cancer Past Surgical History Surgical History H/O umbilical hernia repair History of cataract surgery left and right History of implantable cardioverter-defibrillator (ICD) placement has Pacemaker/defib combo, placed 2005 for complete heart block. medtronic History of lung surgery had a nodule removed. 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 wedge resection in [place]. History of tonsillectomy History of uvulectomy Hx of colonoscopy Hx of esophagogastroduodenoscopy PEG (percutaneous endoscopic gastrostomy) status placed at [facility] 2017 due to tongue cancer and then it was removed S/P cholecystectomy S/P LASIK surgery of both eyes Past Anesthesia History No Hx of Anesthesia Complications and No Family Hx of Anesthesia Complications History of PONV No Hx of PONV and No Hx of Motion Sickness Social History Smoking Status: Former smoker tobacco type: cigarettes Smoking cigarettes per day: has smoked socially for many years, never heavy Do You Dip or Chew Tobacco: No Smoking End Date: smoked heavily for many years Hx Alcohol Use: Yes Alcohol type: hard liquor alcohol intake frequency: a few times a week Hx Substance Use: No substance use type: does not use Review of Systems ROS Unobtainable: All systems reviewed & are unremarkable except as noted in HPI & below Constitutional: as per Subjective / HPI Eyes: as per Subjective / HPI Ear, Nose, Mouth, Throat: as per Subjective / HPI Respiratory: as per Subjective / HPI Cardiovascular: as per Subjective / HPI Additional Comments: recent CEA for 90% blockage Gastrointestinal: as per Subjective / HPI and + dysphagia PEG for swallowing difficulties Genitourinary (Male): + as per Subjective / HPI Musculoskeletal: as per Subjective / HPI Integumentary: as per Subjective / HPI Neurologic: as per Subjective / HPI Psychiatric: as per Subjective / HPI Endocrine: as per Subjective / HPI Hematologic / Lymphatic: as per Subjective / HPI Allergy / Immunological: as per Subjective / HPI Physical Exam Vital Signs Last Vital Signs Temp 36.3 C L 10/30/21 08:32 Pulse 71 10/30/21 08:32 Resp 18 10/30/21 08:32 BP 196/98 H 10/30/21 08:32 Pulse Ox 96 10/30/21 08:32 O2 Del Method 10/30/21 08:32 O2 Flow Rate 2 10/22/21 14:09 ENMT Mouth: no TMJ abnormality and no dentition abnormality Thyromental Distance: > or= 3.5 Finger Breadths Mallampati Class: I prior UPP (no uvula) Neck normal visual inspection and + limited neck extension (recent LCEA (mild limitation)) MALACHI CEA scar appears healing normally Respiratory normal respiratory effort Auscultation: lungs clear to auscultation bilaterally Cardiovascular Rate/Rhythm: regular rate and regular rhythm Heart Sounds: no murmur Vessels: + carotid bruit (Did not listen over healing scar) Musculoskeletal Spine: + limited cervical ROM (mild due to recent surgery (LCEA)) Neurologic moves all extremities Psychiatric Orientation: alert and oriented x 3 Testing Laboratory Results 10/30/21 07:13 10/30/21 07:13 PT 11.8 Seconds (9.0-12.0) 10/28/21 05:36 INR 1.1 (0.9-1.1) 10/28/21 05:36 APTT 28.6 Seconds (21.0-31.0) 10/28/21 05:36 Blood Type O Positive 10/22/21 07:49 Antibody Screen NEGATIVE 10/22/21 07:49 10/30/21 05:59 POC Glucose 92
--- NOTE | 2021-10-30 08:49 | Anesthesiology Progress Note ---
Date of Service October 30, 2021 Anesthesia Post Procedure Vital Signs Vital Signs: Temp Pulse Pulse Pulse Resp BP BP 10/30/21 08:32 36.3 C L 71 18 196/98 H 10/30/21 08:00 36.6 C 70 18 176/91 H 10/30/21 08:05 79 10/29/21 21:30 154/71 H 10/30/21 03:30 36.6 C 69 16 134/75 10/30/21 00:00 70 10/29/21 23:11 36.4 C L 71 16 155/81 H 10/29/21 20:06 84 178/91 H 10/29/21 19:11 187/123 H 10/29/21 18:45 36.6 C 88 20 185/108 H 10/29/21 15:00 36.6 C 67 20 152/90 H 10/29/21 15:27 71 10/29/21 11:35 36.7 C 69 18 154/81 H Pulse Ox O2 Del Method 10/30/21 08:32 96 Room Air 10/30/21 08:00 95 Room Air 10/30/21 08:05 10/29/21 21:30 10/30/21 03:30 95 Room Air 10/30/21 00:00 10/29/21 23:11 96 Room Air 10/29/21 20:06 10/29/21 19:11 10/29/21 18:45 96 Room Air 10/29/21 15:00 97 Room Air 10/29/21 15:27 10/29/21 11:35 96 Room Air Pain Intensity Left Neck: Pain Intensity: 2 Transfer of Care Handoff Completed per policy Notes Mental Status: alert / awake / arousable and participated in evaluation Patient Amnestic to Procedure: Yes Nausea / Vomiting: adequately controlled Pain: adequately controlled Airway Patency, RR, SpO2: stable & adequate BP & HR: stable & adequate Hydration State: stable & adequate Anesthetic Complications: no major complications apparent and Pt Satisfied with anesthetic care
--- NOTE | 2021-10-30 08:50 | History & Physical Bridge Note ---
Date of Service October 30, 2021 History & Physical Bridge Note I have examined the patient, reviewed the History & Physical and in the interval since the performance of the History & Physical have noted the following changes of clinical significance: no changes noted. Last dose of Plavix was 10/24/21. Keep NPO and proceed with EGD with attempt for PEG placement. Due to patient's previous surgical history and previous PEG, endoscopic placement may not be possible however we will attempt this morning. Supervising Physician Co-Signing Physician Notes Agree with KUNAL Schmitt as above Abd: Soft, NT, ND, midline incisional scar Continue current therapy and supportive care Proceed with EGD with PEG tube
[2021-10-30] MEDS ORDERED: LEVOTHYROXINE SODIUM 75 MCG in SYRINGE 0 ML IV SCH (09:00)
[2021-10-30] MEDS ORDERED: LIDOCAINE 2% MPF LOCAL 5 ML VIAL INFIL ONE (09:03)
[2021-10-30] MEDS ORDERED: PROPOFOL IV EMULSION 10 MG/ML 20 ML VIAL IV ONE (09:03)
[2021-10-30] MEDS ORDERED: ceFAZolin 330 MG/ML 1 GM VIAL ONE (09:23)
--- NOTE | 2021-10-30 09:33 | GI REPORT ---
Patient Name: Janes Lyles Procedure Date: 10/30/2021 8:52 AM Date of : 1935 Admit Type: Inpatient Age: 86 Gender: Male Attending MD: Reji Prince DO Procedure: Upper GI endoscopy Providers: Reji Prince DO Referring MD: Pineda Corley Indications: Dysphagia, Place PEG because patient is unable to eat, Place PEG to improve nutrition in patient with prolonged severe illness Medicines: Monitored Anesthesia Care, Ancef 2000 mg IV Complications: No immediate complications. Estimated Blood Loss: Estimated blood loss: none. Procedure: Pre-Anesthesia Assessment: - Prior to the procedure, a History and Physical was performed, and patient medications and allergies were reviewed. The patient's tolerance of previous anesthesia was also reviewed. The risks and benefits of the procedure and the sedation options and risks were discussed with the patient. All questions were answered, and informed consent was obtained. Prior Anticoagulants: The patient has taken Plavix (clopidogrel), last dose was 7 days prior to procedure. ASA Grade Assessment: III - A patient with severe systemic disease. After reviewing the risks and benefits, the patient was deemed in satisfactory condition to undergo the procedure. After obtaining informed consent, the endoscope was passed under direct vision. Throughout the procedure, the patient's blood pressure, pulse, and oxygen saturations were monitored continuously. The Endoscope was introduced through the mouth, and advanced to the second part of duodenum. The upper GI endoscopy was accomplished without difficulty. The patient tolerated the procedure well. Findings: The esophagus was normal. A small hiatal hernia was present. Placement of an externally removable PEG with no T-fasteners was successfully completed. The external bumper was at the 2.0 cm marking on the tube. The examined duodenum was normal. Impression: - Normal esophagus. - Small hiatal hernia. - Normal examined duodenum. - An externally removable PEG placement was successfully completed. - No specimens collected. Recommendation: - [facility]. - Please follow the post-PEG recommendations including: Nutrition consult for formula and volume and start using PEG today. - Continue present medications. Reji Prince DO 10/30/2021 9:33:18 AM This report has been signed electronically. Note Initiated On: 10/30/2021 8:52 AM Number of Addenda: 0 I attest to the content of the Intraoperative Record and orders documented therein, exceptions below {[id number]}
--- NOTE | 2021-10-30 10:24 | Surgery Progress Note ---
Date of Service October 30, 2021 Assessment & Plan (1) S/P carotid endarterectomy: Plan: Doing well post op without any focal deficits. D/C home today. Admission and Anticipated Discharge Date Admission Date: October 22, 2021 Subjective No complaints. Swallowing without difficulty. Voice without hoarseness. Denies focal deficits. Physical Exam Constitutional: WD/WN, vitals as above Neck: trachea midline Respiratory: normal respiratory effort and + respiratory distress Cardiovascular: Rate/Rhythm: regular rate and regular rhythm Extremities: normal capillary refill Musculoskeletal: no cyanosis or clubbing, extremities motor strength 5/5 Skin: + incision (dry and clean. Minimal swelling) Neurologic: CN's II-XI intact bilaterally and moves all extremities Psychiatric: Orientation: alert and oriented x 3 Results & Data ([facility]) Vital Signs (Past 12 Hours) Vital Signs Temp Pulse Pulse Pulse Resp BP BP 10/30/21 10:07 70 16 162/84 H 10/30/21 09:52 70 16 140/79 10/30/21 09:37 72 12 118/71 10/30/21 08:32 36.3 C L 71 18 196/98 H 10/30/21 08:00 36.6 C 70 18 176/91 H 10/30/21 08:05 79 10/30/21 03:30 36.6 C 69 16 134/75 10/30/21 00:00 70 10/29/21 23:11 36.4 C L 71 16 155/81 H Pulse Ox O2 Del Method 10/30/21 10:07 96 Room Air 10/30/21 09:52 96 Room Air 10/30/21 09:37 98 Room Air 10/30/21 08:32 96 Room Air 10/30/21 08:00 95 Room Air 10/30/21 08:05 10/30/21 03:30 95 Room Air 10/30/21 00:00 10/29/21 23:11 96 Room Air
--- NOTE | 2021-10-30 10:37 | Surgery Progress Note ---
Date of Service October 30, 2021 Assessment & Plan Admission and Anticipated Discharge Date Admission Date: October 22, 2021 Subjective Patient gone for insertion of PEG tube. Will consult dietary for feedings. Results & Data ([facility]) Vital Signs (Past 12 Hours) Vital Signs Temp Pulse Pulse Pulse Resp BP BP 10/30/21 10:07 70 16 162/84 H 10/30/21 09:52 70 16 140/79 10/30/21 09:37 72 12 118/71 10/30/21 08:32 36.3 C L 71 18 196/98 H 10/30/21 08:00 36.6 C 70 18 176/91 H 10/30/21 08:05 79 10/30/21 03:30 36.6 C 69 16 134/75 10/30/21 00:00 70 10/29/21 23:11 36.4 C L 71 16 155/81 H Pulse Ox O2 Del Method 10/30/21 10:07 96 Room Air 10/30/21 09:52 96 Room Air 10/30/21 09:37 98 Room Air 10/30/21 08:32 96 Room Air 10/30/21 08:00 95 Room Air 10/30/21 08:05 10/30/21 03:30 95 Room Air 10/30/21 00:00 10/29/21 23:11 96 Room Air
[2021-10-30] MEDS: D5W AND 1/2NSS 1,000 ML IV SCH (11:59)
[2021-10-30] MEDS: PANTOprazole 40 MG in SYRINGE 0 ML IV SCH (12:51)
[2021-10-30] MEDS: THIAMINE HCL 100 MG in SYRINGE 9 ML IV SCH (16:46)
--- NOTE | 2021-10-30 17:28 | Hospitalist Progress Note ---
Date of Service October 30, 2021 Assessment & Plan (1) Stroke-like symptoms: Plan: Resume dual platelet and statinneurology follow-up (2) Swallowing dysfunction: Plan: S/p head/neck radiation treatments in 2019. PEG placement planned for 10/30/21, GI following. Speech re-eval pending. Consider ENT consult for dysphagia. - after tube feed begins, follow labs to monitor for refeeding syndrome. Patient has been NPO for ~5 days+. - tmh teacher consulted Status post PEGtube feedings (3) S/P carotid endarterectomy: Plan: POD 7 L CEA, for symptomatic >90% occlusion. See above. restart DAPT and statin after PEG tube placed (4) Hypertension: Plan: Resume home Coreg (5) History of congestive heart failure: Plan: Hx of exacerbation in past. Presumed diastolic CHF. 10/24/21 echo w/ EF 55-60%. Severe LVH. Moderate L atrial dilation. 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 Nodule s/p resection. S/p chemo and radiation for SCC. In remission. (8) Biventricular ICD (implantable cardioverter-defibrillator) in place: Plan: Complete heart block in 2005 and has had ICD + revisions. (9) Chronic kidney disease, stage 3a: Plan: Baseline Cr 1. At baseline. Follow BMP. Avoid nephrotoxic agents. (10) Gastroesophageal reflux disease: Plan: Lansoprazole via PEG Plan Hypomagnesemiareplace; resume subq heparin from tomorrow Admission and Anticipated Discharge Date Admission Date: October 22, 2021 Subjective Follow-up of stuttering neurologic symptomsstatus post PEG; no complaints Physical Exam Physical Exam: Constitutional and general: No acute distress, looks biologic age Head and face: No puffiness, atraumatic Eyes: No scleral icterus, extraocular movements normal Neck: Supple, no JVD Musculoskeletal: No acute joint swelling, no bony abnormalities Skin/dermatologic/integument: No rash, no purpura Hematologic and lymphatic: pallor +, no petechia Gastrointestinal/abdomen: Nondistended, soft, nonacute Neurologic: Cranial nerves intact, nonfocal Psychiatry: Awake, alert, pleasant, communicative Cardiovascular: Heart rhythm regular, no rub, no murmur, no gallop Respiratory: Chest movements equal, no use of accessory muscles, no adventitious sounds Extremities: No edema, no cyanosis Results & Data Results & Data ([facility]) Vital Signs (Past 12 Hours) Vital Signs Temp Pulse Pulse Pulse Resp BP BP 10/30/21 17:02 36.5 C 72 20 174/96 H 10/30/21 15:09 70 10/30/21 12:59 36.7 C 70 20 166/93 H 10/30/21 12:07 36.6 C 69 18 157/92 H 10/30/21 11:25 36.5 C 75 18 152/93 H 10/30/21 11:00 36.4 C L 75 18 158/91 H 10/30/21 10:07 70 16 162/84 H 10/30/21 09:52 70 16 140/79 10/30/21 09:37 72 12 118/71 10/30/21 08:32 36.3 C L 71 18 196/98 H 10/30/21 08:00 36.6 C 70 18 176/91 H 10/30/21 08:05 79 Pulse Ox O2 Del Method 10/30/21 17:02 98 Room Air 10/30/21 15:09 10/30/21 12:59 97 Room Air 10/30/21 12:07 98 Room Air 10/30/21 11:25 97 Room Air 10/30/21 11:00 99 Room Air 10/30/21 10:07 96 Room Air 10/30/21 09:52 96 Room Air 10/30/21 09:37 98 Room Air 10/30/21 08:32 96 Room Air 10/30/21 08:00 95 Room Air 10/30/21 08:05 PG Care Time/CCT Total # of Minutes Spent Total Time Spent with Patient: Total time spent is greater than 50% in coordination of care (as documented) at patient's floor/unit and/or counseling patient: Coding Level of Care Code 16155 Subseq Hosp Care Lvl 2 Diagnoses Stroke-like symptoms R29.90 Swallowing dysfunction R13.10 S/P carotid endarterectomy Z98.890 Hypertension I10 Hypertension type: essential hypertension History of congestive heart failure Z86.79 Hypothyroidism E03.9 Hypothyroidism type: acquired Squamous cell carcinoma of base of tongue C01 Biventricular ICD (implantable cardioverter-defibrillator) in place Z95.810 Chronic kidney disease, stage 3a N18.3 Gastroesophageal reflux disease K21.9 Esophagitis presence: without esophagitis (1) Hypothyroidism Hypothyroidism type: acquired Qualified Code(s): E03.9 - Hypothyroidism, unspecified (2) Gastroesophageal reflux disease Esophagitis presence: without esophagitis Qualified Code(s): K21.9 - Gastro- esophageal reflux disease without esophagitis (3) Hypertension Hypertension type: essential hypertension Qualified Code(s): I10 - Essential (primary) hypertension
[2021-10-30] MEDS: MAGNESIUM SULFATE / D5W 1 GM/100 ML BAG IV SCH ×2 (17:59→20:11)
[2021-10-30] MEDS: carvediloL 12.5 MG TAB GT SCH (20:13)
[2021-10-30] MEDS: LANSOPRAZOLE 30 MG SOLTAB PEG SCH (20:14)
[2021-10-30] MEDS: ATORVASTATIN 20 MG TAB GT SCH (20:14)
[2021-10-31] MEDS ORDERED: TUBE FEEDING WATER FLUSH GT SCH (00:01)
[2021-10-31] MEDS ORDERED: FIBERSOURCE HN 1.2 CAL 1000 ML BAG ONE (05:33)
[2021-10-31] MEDS: LEVOTHYROXINE SODIUM 150 MCG TABLET GT SCH (05:35)
[2021-10-31] MEDS: D5W AND 1/2NSS 1,000 ML IV SCH (05:37)
[2021-10-31] MEDS: FIBERSOURCE HN 1.2 CAL 1000 ML BAG GT SCH ×6 (06:10→21:51)
[2021-10-31] MEDS: TUBE FEEDING WATER FLUSH GT SCH ×6 (06:12→21:52)
[2021-10-31 07:52] LABS: Basophils # (auto) 0.01 K/uL (0-0.2); Basophils % (auto) 0.3 %; Eosinophils # (auto) 0.09 K/uL (0-0.50); Eosinophils % (auto) 2.8 %; Hematocrit (blood only) 32.4 % (40.1-51.0); Hemoglobin 10.9 g/dl (14.0-18.0); Immature Granulocytes # (auto) 0.01 K/uL (0.00-0.02); Immature Granulocytes % (auto) 0.3 %; Lymphocytes # (auto) 0.42 K/uL (1.2-3.4); Lymphocytes % (auto) 13.1 %; Mean Platelet Volume 9.4 fL (9.4-12.4); Monocytes # (auto) 0.31 K/uL (0.24-0.82); Monocytes % (auto) 9.7 %; Neutrophils # (auto) 2.37 K/uL (1.4-6.5); Neutrophils % (auto) 73.8 %; Platelet Count 122 K/uL (130-400); White Blood Count 3.21 K/ul (4.8-10.8)
[2021-10-31] MEDS ORDERED: FIBERSOURCE HN 1.2 CAL 1000 ML BAG GT SCH (08:00)
[2021-10-31 08:11] LABS: Mean Corpuscular Hemoglobin 31.2 pg (25.0-34.0); Mean Corpuscular Hgb Conc 33.6 g/dL (32.0-36.0); Mean Corpuscular Volume 92.8 fL (80.0-100.0); RDW Coefficient of Variation 12.9 % (11.5-14.5); RDW Standard Deviation 43.4 fL (36.4-46.3); Red Blood Count 3.49 M/uL (4.63-6.08)
[2021-10-31] MEDS: THIAMINE HCL 100 MG in SYRINGE 9 ML IV SCH (08:28)
[2021-10-31 08:29] LABS: Albumin Globulin Ratio 1.4 (0.9-2); Albumin Level 3.3 gm/dl (3.4-5.0); BUN Creatinine Ratio 6.8 (10-20); Bilirubin,Total 0.9 mg/dl (0.2-1.0); Calcium 8.4 mg/dl (8.5-10.1); Est GFR (Non-African American) 66.4 ml/min; Globulin 2.4 gm/dl (2.5-4.0); Magnesium 1.8 mg/dl (1.7-2.4); Potassium 3.5 mmol/L (3.5-5.1); Total Protein 5.7 gm/dl (6.0-8.3)
[2021-10-31] MEDS: ASPIRIN 81 MG CHEW PEG SCH (08:29)
[2021-10-31] MEDS: carvediloL 12.5 MG TAB GT SCH ×2 (08:29→20:40)
[2021-10-31] MEDS: CLOPIDOGREL BISULFATE 75 MG TAB PEG SCH (08:29)
[2021-10-31] MEDS: LANSOPRAZOLE 30 MG SOLTAB PEG SCH ×2 (08:29→20:41)
[2021-10-31] MEDS: MAGNESIUM OXIDE 400 MG TAB PEG SCH (08:29)
[2021-10-31] MEDS: HEPARIN SOD 5,000 UNIT/0.5 ML VIAL SQ SCH ×2 (08:30→20:39)
--- NOTE | 2021-10-31 14:02 | Surgery Progress Note ---
Date of Service October 31, 2021 Assessment & Plan (1) Feeding difficulty: Plan: If tolerates feedings most likely discharge for friday. Admission and Anticipated Discharge Date Admission Date: October 22, 2021 Subjective Patient soundly sleeping Physical Exam Physical Exam: Tolerating tube feedings. Constitutional: WD/WN, vitals as above Results & Data ([facility]) Vital Signs (Past 12 Hours) Vital Signs Temp Pulse Pulse Pulse Resp BP BP 10/31/21 11:34 36.5 C 75 18 118/71 10/31/21 08:05 36.6 C 69 19 107/61 10/31/21 07:09 70 10/31/21 03:44 36.4 C L 71 17 176/76 H Pulse Ox O2 Del Method 10/31/21 11:34 96 Room Air 10/31/21 08:05 94 Room Air 10/31/21 07:09 10/31/21 03:44 94 Room Air
--- NOTE | 2021-10-31 18:36 | Hospitalist Progress Note ---
Date of Service October 31, 2021 Assessment & Plan (1) Stroke-like symptoms: Plan: Resume dual platelet and statinneurology follow-up (2) Swallowing dysfunction: Plan: S/p head/neck radiation treatments in 2019. PEG placement planned for 10/30/21, GI following. Speech re-eval pending. Consider ENT consult for dysphagia. - after tube feed begins, follow labs to monitor for refeeding syndrome. Patient has been NPO for ~5 days+. - repair tech consulted Status post PEGtube feedings initiated (3) S/P carotid endarterectomy: Plan: POD 7 L CEA, for symptomatic >90% occlusion. See above. restarted DAPT and statin (4) Hypertension: Plan: Resumed home Coreg (5) History of congestive heart failure: Plan: Hx of exacerbation in past. Presumed diastolic CHF. 10/24/21 echo w/ EF 55-60%. Severe LVH. Moderate L atrial dilation. 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 Nodule s/p resection. S/p chemo and radiation for SCC. In remission. (8) Biventricular ICD (implantable cardioverter-defibrillator) in place: Plan: Complete heart block in 2005 and has had ICD + revisions. (9) Gastroesophageal reflux disease: Plan: Lansoprazole via PEG (10) Pancytopenia: Plan: Mildcan follow; B12 in am Admission and Anticipated Discharge Date Admission Date: October 22, 2021 Subjective Follow-up of stuttering neurologic symptoms, medical managementno complaints Physical Exam Physical Exam: Constitutional and general: No acute distress, looks biologic age Head and face: No puffiness, atraumatic Eyes: No scleral icterus, extraocular movements normal Neck: Supple, no JVD Musculoskeletal: No acute joint swelling, no bony abnormalities Skin/dermatologic/integument: No rash, no purpura Hematologic and lymphatic: pallor +, no petechia Gastrointestinal/abdomen: Nondistended, soft, nonacute Neurologic: Cranial nerves intact, nonfocal Psychiatry: Awake, alert, pleasant, communicative Cardiovascular: Heart rhythm regular, no rub, no murmur, no gallop Respiratory: Chest movements equal, no use of accessory muscles, no adventitious sounds Extremities: No edema, no cyanosis Results & Data Results & Data ([facility]) Vital Signs (Past 12 Hours) Vital Signs Temp Pulse Pulse Pulse Resp BP BP 10/31/21 15:23 73 10/31/21 14:59 36.6 C 69 18 135/80 10/31/21 11:34 36.5 C 75 18 118/71 10/31/21 08:05 36.6 C 69 19 107/61 10/31/21 07:09 70 Pulse Ox O2 Del Method 10/31/21 15:23 10/31/21 14:59 98 Room Air 10/31/21 11:34 96 Room Air 10/31/21 08:05 94 Room Air 10/31/21 07:09 Laboratory Results Laboratory Results - last 24 hr 10/30/21 10/31/21 10/31/21 23:56 06:44 07:33 WBC 3.21 L RBC 3.49 L Hgb 10.9 L Hct 32.4 L MCV 92.8 MCH 31.2 MCHC 33.6 RDW Std Deviation 43.4 RDW Coeff of Tonia 12.9 Plt Count 122 L MPV 9.4 Immature Gran % (Auto) 0.3 Neut % (Auto) 73.8 Lymph % (Auto) 13.1 Camp % (Auto) 9.7 Eos % (Auto) 2.8 Baso % (Auto) 0.3 Neut # (Auto) 2.37 Lymph # (Auto) 0.42 L Camp # (Auto) 0.31 Eos # (Auto) 0.09 Baso # (Auto) 0.01 Immature Gran # (Auto) 0.01 Sodium Potassium Chloride Carbon Dioxide Anion Gap BUN Creatinine Est Cr Clr Drug Dosing Est GFR ( Amer) Est GFR (Non-Af Amer) BUN/Creatinine Ratio Glucose POC Glucose 97 103 H Fasting Glucose Calcium Phosphorus Magnesium Total Bilirubin AST ALT Alkaline Phosphatase Total Protein Albumin Globulin Albumin/Globulin Ratio 10/31/21 10/31/21 10/31/21 07:33 11:25 16:28 WBC RBC Hgb Hct MCV MCH MCHC RDW Std Deviation RDW Coeff of Tonia Plt Count MPV Immature Gran % (Auto) Neut % (Auto) Lymph % (Auto) Camp % (Auto) Eos % (Auto) Baso % (Auto) Neut # (Auto) Lymph # (Auto) Camp # (Auto) Eos # (Auto) Baso # (Auto) Immature Gran # (Auto) Sodium 139 Potassium 3.5 Chloride 106 Carbon Dioxide 29 Anion Gap 4 BUN 7 Creatinine 1.03 Est Cr Clr Drug Dosing 64.0 Est GFR ( Amer) 77.0 Est GFR (Non-Af Amer) 66.4 BUN/Creatinine Ratio 6.8 L Glucose 129 H POC Glucose 132 H 98 Fasting Glucose 129 H Calcium 8.4 L Phosphorus 3.0 Magnesium 1.8 Total Bilirubin 0.9 AST 13 ALT 10 Alkaline Phosphatase 58 Total Protein 5.7 L Albumin 3.3 L Globulin 2.4 L Albumin/Globulin Ratio 1.4 PG Care Time/CCT Total # of Minutes Spent Total Time Spent with Patient: Total time spent is greater than 50% in coordination of care (as documented) at patient's floor/unit and/or counseling patient: Coding Level of Care Code 27425 Subseq Hosp Care Lvl 2 Diagnoses Stroke-like symptoms R29.90 Swallowing dysfunction R13.10 S/P carotid endarterectomy Z98.890 Hypertension I10 Hypertension type: essential hypertension History of congestive heart failure Z86.79 Hypothyroidism E03.9 Hypothyroidism type: acquired Squamous cell carcinoma of base of tongue C01 Biventricular ICD (implantable cardioverter-defibrillator) in place Z95.810 Gastroesophageal reflux disease K21.9 Esophagitis presence: without esophagitis Pancytopenia D61.818 (1) Hypertension Hypertension type: essential hypertension Qualified Code(s): I10 - Essential (primary) hypertension (2) Hypothyroidism Hypothyroidism type: acquired Qualified Code(s): E03.9 - Hypothyroidism, unspecified (3) Gastroesophageal reflux disease Esophagitis presence: without esophagitis Qualified Code(s): K21.9 - Gastro- esophageal reflux disease without esophagitis
[2021-10-31] MEDS: ATORVASTATIN 20 MG TAB GT SCH (20:40)
[2021-11-01] MEDS: LEVOTHYROXINE SODIUM 150 MCG TABLET GT SCH (06:06)
[2021-11-01] MEDS: FIBERSOURCE HN 1.2 CAL 1000 ML BAG GT SCH ×4 (06:12→16:06)
[2021-11-01 07:03] LABS: Basophils # (auto) 0.01 K/uL (0-0.2); Basophils % (auto) 0.3 %; Eosinophils % (auto) 3.2 %; Hematocrit (blood only) 31.3 % (40.1-51.0); Hemoglobin 10.6 g/dl (14.0-18.0); Immature Granulocytes # (auto) 0.01 K/uL (0.00-0.02); Immature Granulocytes % (auto) 0.3 %; Lymphocytes # (auto) 0.52 K/uL (1.2-3.4); Lymphocytes % (auto) 16.6 %; Mean Platelet Volume 9.3 fL (9.4-12.4); Monocytes # (auto) 0.31 K/uL (0.24-0.82); Monocytes % (auto) 9.9 %; Neutrophils # (auto) 2.19 K/uL (1.4-6.5); Neutrophils % (auto) 69.7 %; Platelet Count 113 K/uL (130-400); White Blood Count 3.14 K/ul (4.8-10.8)
[2021-11-01 07:27] LABS: Mean Corpuscular Hemoglobin 31.3 pg (25.0-34.0); Mean Corpuscular Hgb Conc 33.9 g/dL (32.0-36.0); Mean Corpuscular Volume 92.3 fL (80.0-100.0); Ovalocytes 1+; RDW Coefficient of Variation 12.8 % (11.5-14.5); RDW Standard Deviation 42.9 fL (36.4-46.3); Red Blood Count 3.39 M/uL (4.63-6.08)
[2021-11-01] MEDS: TUBE FEEDING WATER FLUSH GT SCH ×4 (07:27→16:06)
[2021-11-01] MEDS: carvediloL 12.5 MG TAB GT SCH (07:40)
[2021-11-01 07:41] LABS: Albumin Globulin Ratio 1.3 (0.9-2); Albumin Level 3.3 gm/dl (3.4-5.0); Bilirubin,Total 0.9 mg/dl (0.2-1.0); Calcium 8.5 mg/dl (8.5-10.1); Creatinine Clr Calc Pharmacy 67.2 ml/min; Est GFR (African American) 81.7 ml/min; Est GFR (Non-African American) 70.5 ml/min; Globulin 2.6 gm/dl (2.5-4.0); Magnesium 1.6 mg/dl (1.7-2.4); Phosphorus 3.1 mg/dl (2.5-4.9); Potassium 3.4 mmol/L (3.5-5.1); Total Protein 5.9 gm/dl (6.0-8.3)
[2021-11-01] MEDS: CLOPIDOGREL BISULFATE 75 MG TAB PEG SCH (07:43)
[2021-11-01] MEDS: ASPIRIN 81 MG CHEW PEG SCH (07:44)
[2021-11-01] MEDS: MAGNESIUM OXIDE 400 MG TAB PEG SCH (07:44)
[2021-11-01] MEDS: LANSOPRAZOLE 30 MG SOLTAB PEG SCH (07:44)
[2021-11-01] MEDS: THIAMINE HCL 100 MG in SYRINGE 9 ML IV SCH (07:45)
[2021-11-01] MEDS: HEPARIN SOD 5,000 UNIT/0.5 ML VIAL SQ SCH (07:45)
--- NOTE | 2021-11-01 09:42 | Neurology Progress Note ---
Date of Service November 01, 2021 Assessment & Plan (1) H/O TIA (transient ischemic attack) and stroke: (2) S/P carotid endarterectomy: (3) Recurrent laryngeal nerve paralysis: (4) Swallowing dysfunction: Plan Patient has a history of TIA versus small stroke in September. Symptoms started October 14 with exacerbations on October 17. At that time, CT scans did not show any infarct (and we could not get an MRI of the brain because of pacemaker incompatibility). He had severe stenosis in the left internal carotid artery and underwent carotid endarterectomy October 22. He has had recurrent symptoms postoperatively with some transient vision issues in his left eye and mild expressive aphasia. He also had trouble swallowing and a hoarse voice. CT scan of the head this time revealed a small left frontal infarct. The stroke is more likely in relation to his recent surgery. Currently he clinically is back to baseline except for the hoarse, raspy voice and trouble swallowing. I do not detect any significant aphasia this morning. The etiology of the hoarse voice is likely a recurrent laryngeal nerve injury. if, indeed, this preceded surgery, then it is due to his previous squamous cell carcinoma treatment (most likely radiation therapy). Otherwise, if it was postoperatively, it could be due to intubation or injury during the surgical procedure itself. Recommendations: 1. Increase activity as able and continue physical, occupational, and (especially) speech therapy. speech therapy should continue as an outpatient. 2. Continue PEG tube feedings and hopefully the patient can be discharged soon. 3. Continue 81 mg aspirin +75 mg clopidogrel daily for 3 weeks total, then remain on 75 mg clopidogrel alone 4. The patient needs an ENT evaluation as an outpatient in the next week or so. I spoke with Dr. Mcguire and he will see the patient as an outpatient, as Dr. Vaughn is on maternity leave. if the family does not want to see Dr. Mcguire then they would have to arrange a visit with another ENT specialist Consider laryngoscopy to visualize vocal cords and consider CT scan following the course of the recurrent laryngeal nerves. Obviously, I would leave this to ENT. 5. I would like to see this patient for follow-up in neurology clinic 2-3 weeks after discharge. Overall, I spent a total of 35 minutes with this case including review of records, direct evaluation the patient at bedside, and discussion of the case with the patient and RN at bedside, including differential diagnosis and treatment options. Admission and Anticipated Discharge Date Admission Date: October 22, 2021 Subjective patient has no complaint of pain, headache, numbness, or weakness. He believes that his hoarseness is a little bit better and he believes he can swallow better. He is not choking on saliva. He has the PEG tube placed and is getting nutrition. He claims he has had 3 bowel movements since the PEG tube has been placed. He is afebrile and blood pressure is 116/66. White count remains low and hemoglobin hematocrit are 10.6 and 31.3. Platelet count is 113. potassium is low at 3.4 and magnesium is low at 1.6. Total protein is mildly low. B12 is normal. Results & Data ([facility]) Vital Signs (Past 12 Hours) Vital Signs Temp Pulse Pulse Resp BP BP Pulse Ox 11/01/21 07:35 36.6 C 71 16 116/66 93 10/31/21 22:16 70 10/31/21 23:00 36.4 C L 68 20 116/70 95 O2 Del Method 11/01/21 07:35 Room Air 10/31/21 22:16 10/31/21 23:00 Room Air Exam (Neuro) Physical Exam: He is awake and alert. Speech is hoarse and perhaps slightly improved compared to be getting of the week. Mood and affect seem normal appropriate. Thought processes are intact with good long and short-term memory. Extraocular eye muscles are intact without nystagmus. There is no facial droop. Tongue is midline. Coordination is normal in the arms without tremor or ataxia. Strength is symmetrical in the limbs and there are no abnormal involuntary movements. He is sitting up in the chair without difficulty. PG Care Time/CCT Total # of Minutes Spent Total Time Spent with Patient: Total time spent is greater than 50% in coordination of care (as documented) at patient's floor/unit and/or counseling patient: Coding Level of Care Code 57439 Subseq Hosp Care Lvl 3 Diagnoses H/O TIA (transient ischemic attack) and stroke Z86.73 S/P carotid endarterectomy Z98.890 Recurrent laryngeal nerve paralysis J38.00 Swallowing dysfunction R13.10 Time Spent (min) 35
[2021-11-01] MEDS ORDERED: POTASSIUM CHLORIDE 20 MEQ/15 ML UDC PEG STA (12:50)
[2021-11-01] MEDS ORDERED: LANSOPRAZOLE 30 MG SOLTAB PEG PRN (12:52)
[2021-11-01] MEDS: MAGNESIUM SULFATE / D5W 1 GM/100 ML BAG IV SCH ×2 (13:04→14:52)
[2021-11-01 15:03] VITALS: O2SAT 98
[2021-11-01 16:16] VITALS: BP 132/80; PULSE 80; TEMP 98.1
--- NOTE | 2021-11-01 16:18 | Surgery Progress Note ---
Date of Service November 01, 2021 Assessment & Plan (1) S/P carotid endarterectomy: Plan: Tolerating his tube feedings Will d/c today with home health aid and therapy. Will see him in the office in 3-4 weeks Admission and Anticipated Discharge Date Admission Date: October 22, 2021 Subjective Patient in better spirits today. Tolerating oral secretions. Tolerating his peg tube feedings Physical Exam Constitutional: WD/WN, vitals as above Respiratory: normal respiratory effort; no respiratory distress Cardiovascular: Rate/Rhythm: regular rate and regular rhythm Gastrointestinal (Abdomen): Percussion/Palpation: abdomen soft; abdomen nontender Skin: + incision (healing well) Neurologic: moves all extremities; + CN's not intact Psychiatric: Orientation: alert and oriented x 3 Results & Data ([facility]) Vital Signs (Past 12 Hours) Vital Signs Temp Pulse Pulse Resp BP Pulse Ox Pulse Ox 11/01/21 15:58 90 11/01/21 14:00 98 11/01/21 07:00 71 11/01/21 07:35 36.6 C 71 16 116/66 93 O2 Del Method O2 Del Method 11/01/21 15:58 11/01/21 14:00 Room Air 11/01/21 07:00 11/01/21 07:35 Room Air
--- NOTE | 2021-11-06 13:43 | Discharge Summary ---
Date of Service November 06, 2021 Admission HPI Per Admitting Provider [facility], [id number] Consultation Signed Patient:JUSTIN JALLOH Admit Date:10/17/21 MR#:[id number] Att Phy:William Gannon MD Acct ID:[id number] Bridget Phy:Zaire Franks MD Date:1935 Fam Phy: Age:86 Location:2N Sex:M Room/Bed:[facility] cc: ~ *NOTICE TO RECEIVING CONSTITUTION PARTY/AGENCY This information is strictly Confidential and protected under [place] law. [place] law prohibits you from making any further disclosure of this information unless further disclosure is expressly permitted by the written consent of the person to whom it pertains or is authorized by law. A general authorization for the release of medical or other information is not sufficient for this purpose. Hospital accepts no responsibility if the information is made available to any other person, INCLUDING THE PATIENT. Date of Consultation October 18, 2021 Assessment & Plan (1) Left carotid stenosis: Pt with left hemispheric TIA/amaurosis sx. Upon review of his neck CTA, he appears to have severe L ICA stenosis with an area of ulcerated plaque. Pt discussed with Dr Corley. Recommends pt undergo L CEA. This has been tentatively scheduled for OCTOBER 22. Would consider initiation of ASA/plavix if no contraindications. Procedure, risks, benefits and alternatives were discussed at length with the patient and his family present. Pt wishes to discuss with his before proceeding with surgery. If patient is discharged prior to Friday, will need to call [facility] on Friday for arrival time. Please call if needed. History of Present Illness Reason for Consultation: LICAS with TIA Attending Physician: William Gannon MD History of Present Illness 86 yo m with hx of prostate ca, CKD, SCC of tongue, gout, HTN, hyperlipidemia, hypothyroidism, anemia, DMII, cardiomyopathy, pacemaker, ICD in place, admitted with stroke like sx yesterday. Pt states he noted complete loss of L eye vision for about 5 minutes, and that he had similar sx about 6 months ago which lasted about 15 seconds. States he had difficulty finding words and mild confusion as well, but all of these sx have resolved. Denies ACEVES, fever, recent illness, chest pain, SOB, abd pain, N/V, rest pain, claudication, unilateral extremity weakness numbness or tingling, facial droop, other complaints. No prior knowledge of carotid stenosis in past. CTA neck demonstrates severe stenosis of L ICA with area of ulcerated plaque noted. Allergies Allergy/AdvReac Type Severity Reaction Status Date / Time spironolactone Allergy Severe Hypotension; Verified 10/17/21 15:26 [From Aldactone] Fatigue levofloxacin [From Levaquin] Allergy Intermediate rash at IV Verified 10/17/21 15:26 site rosuvastatin [From Crestor] AdvReac Unknown Elevated Verified 10/17/21 15:26 liver enzymes Home Medications Medication Instructions Recorded Confirmed Type omeprazole 20 mg capsule,delayed 20 mg PO BID PRN Acid Reflux 09/16/19 10/17/21 History release carvedilol 12.5 mg tablet 12.5 mg PO BID #180 tabs 04/20/21 10/17/21 Rx atorvastatin 20 mg tablet 20 mg PO HS 10/17/21 10/17/21 Histo ry coenzyme Q10 100 mg capsule (Co 100 mg PO DAILY 10/17/21 10/17/21 History Q-10) levothyroxine 150 mcg tablet 150 mcg PO DAILYBB 10/17/21 10/17/21 Hi story magnesium oxide 400 mg PO UD 10/17/21 10/17/21 History Patient History Medical History Complete heart block Diabetes mellitus Resolved with weight loss. A1C 4.8 09/2019Dilated cardiomyopathy Dysphagia History of congestive heart failure Malnutrition Prostate cancer Dr. Orta, Urologist in [place] follow patient Surgical History H/O umbilical hernia repair History of cataract surgery History of implantable cardioverter-defibrillator (ICD) placement History of tonsillectomy PEG (percutaneous endoscopic gastrostomy) status placed at [facility] 2018S/P cholecystectomy S/P LASIK surgery of both eyes Family History Brother Prostate cancerFather , age 79 Multiple myelomaMother , age 85 from "old age" No problems noted. Denies family history of Ovarian cancer Myocardial infarction Breast cancer Colorectal cancer Social History Smoking Status: Never smoker Years Smoked: 20; Cigarettes Per Day: has smoked socially for many years, never heavy; Second Hand Exposure: Yes; Hx Alcohol Use: Yes Alcohol type: hard liquor Hx Substance Use: No Preferred Language: Stateless Communication Ability: Effective Visual Impairment: No Limitations Hearing Ability: Normal Vacuum Tank Tender Required: No Beliefs That Will Affect Care: None marital status: Current Living Situation: Spouse and Family current occupational status: retired 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 How many Children do You have: 2 other: 2 sons Feels Safe at Home: Yes caffeine: No during the past year weight has: decreased > 10 lbs Seatbelt Use: always Assistive Devices: None Review of Systems Review of Systems: All systems reviewed & are unremarkable except as noted in HPI & below Physical Exam Constitutional: WD/WN, vitals as above healthy appearing, cooperative and comfortable; not in distress Neck: trachea midline Respiratory: normal respiratory effort, lungs clear to auscultation Auscultation: + diminished lung sounds Cardiovascular: Rate/Rhythm: regular rate and regular rhythm Vessels: p osterior tibial pulses present, dorsalis pedis pulses present and radial pulses present; + abnormal peripheral pulses Extremities: normal capillary refill; no edema Gastrointestinal (Abdomen): Inspection/Auscultation: abdomen normal to inspection and normal bowel sounds Percussion/Palpation: abdomen soft; abdomen nontender Musculoskeletal: no cyanosis or clubbing, extremities motor strength 5/5 Skin: no rashes, warm and dry Neurologic: moves all extremities and awake; no focal motor deficits and not confused Speech / Cognition: normal speech and normal cognition Psychiatric: A+Ox3, euthymic affect Results & Data ([facility]) Vital Signs (Past 12 Hours) Vital Signs Temp Pulse Pulse Resp BP BP Pulse Ox 10/18/21 12:00 36.4 C L 70 18 119/73 97 10/18/21 07:44 81 18 163/94 H 96 10/18/21 07:05 87 10/18/21 03:00 36.6 C 71 18 121/71 97 O2 Del Method 10/18/21 12:00 Room Air 10/18/21 07:44 Room Air 10/18/21 07:05 10/18/21 03:00 Room Air Signed By: <Electronically signed by Linda Montenegro PA-C> 10/18/21 1510 <Electronically signed by Pineda Corley MD> 10/19/21 0809 Created:10/18/21 1455 The status of this report isSigned. Draft = Not yet reviewed or approved by Medical Physician. Signed = Reviewed and approved by Medical Physician. Admission Exam Per Admitting Provider Constitutional: WD/WN, vitals as above healthy appearing, cooperative and comfortable; not in distress Neck: trachea midline Respiratory: normal respiratory effort, lungs clear to auscultation Auscultation: + diminished lung sounds Cardiovascular: Rate/Rhythm: regular rate and regular rhythm Vessels: posterior tibial pulses present, dorsalis pedis pulses present and radial pulses present; + abnormal peripheral pulses Extremities: normal capillary refill; no edema Gastrointestinal (Abdomen): Inspection/Auscultation: abdomen normal to inspection and normal bowel sounds Percussion/Palpation: abdomen soft; abdomen nontender Musculoskeletal: no cyanosis or clubbing, extremities motor strength 5/5 Skin: no rashes, warm and dry Neurologic: moves all extremities and awake; no focal motor deficits and not confused Speech / Cognition: normal speech and normal cognition Psychiatric: A+Ox3, euthymic affect Principal Diagnosis Left internal carotid artery stenosis Discharge Exam Tolerating tube feedings. Constitutional WD/WN, vitals as above Neck trachea midline Respiratory normal respiratory effort; no respiratory distress Cardiovascular Rate/Rhythm: regular rate and regular rhythm Extremities: normal capillary refill Gastrointestinal (Abdomen) Inspection/Auscultation: abdomen normal to inspection; abdomen not distended Percussion/Palpation: abdomen soft; abdomen nontender Musculoskeletal no cyanosis or clubbing, extremities motor strength 5/5 Skin + incision (healing well) Neurologic moves all extremities; + CN's not intact Psychiatric Orientation: alert and oriented x 3 Discharge Data Allergies Allergy/AdvReac Type Severity Reaction Status Date / Time spironolactone Allergy Severe Hypotension; Verified 10/22/21 07:42 [From Aldactone] Fatigue levofloxacin [From Levaquin] Allergy Intermediate rash at IV Verified 10/22/21 07:42 site rosuvastatin [From Crestor] AdvReac Unknown Elevated Verified 10/22/21 07:42 liver enzymes Consultations 10/22/21 14:09 Consult Forestry Professor Routine 10/23/21 10:15 Consult Forestry Professor Routine 10/25/21 12:02 Consult Gastroenterology Routine 10/26/21 13:56 Consult Neurology Routine 10/29/21 15:28 Consult Hospitalist Routine Procedures Performed Operation Date: 10/22/21 09:20 <No data on this case meets the specified criteria> Operation Date: 10/22/21 09:20 Actual Procedures p Left Carotid Endarterectomy with Bovine Patch(Left) - Pineda Corley MD Operation Date: 10/30/21 09:15 Actual Procedures p EGD Gastric Tube Placement - Reji Allison Suresh, DO Ordered Studies 10/25/21 09:30 Fluoro video [FL video swallow] Routine 10/26/21 13:30 CT Brain [CT head/brain wo con] Routine 10/27/21 09:49 CT head/brain wo con Routine Hospital Course (1) S/P carotid endarterectomy: Tolerating his tube feedings Will d/c today with home health aid and therapy. Will see him in the office in 3-4 weeks Total Time Total Time Spent Total Time Spent (In Minutes): 0 Discharge Plan Discharge Items Patient Disposition: Home - Home Health Services Reason For Visit: Symptomatic Left Carotid Artery Stenosis Discharge Diagnosis: Severe stenosis of left internal carotid artery. Carotid endarterectomy left side difficulty swallowing Condition on Discharge: Good Activity: Per Instructions section Lifting: Gradually increase as tolerated Exercise/Sports: None Weightbearing: Full weightbearing Non-emergency contact: Surgeon Call non-emergency contact if: your temperature is above 101.5, your wound has increased redness, your wound has increased drainage and your wound pain has increased Follow-up/Referrals: Pro,Zaire Hays MD [Primary Care Provider] - 11/13/21 11:00 am (Appointment with Xochilt Deal PA-C) Diet: Nothing by Mouth Diet Comment: Jevity 1.5 with 240ml bolus 6 x/daily. Addtl Attending Provider Instructions: SPECIAL CARE INSTRUCTIONS: Medications: * Continue to take Aspirin as directed. Incision Care: * You may shower, but do not rub incision. You may let the warm soapy water run over it. Be sure to dry the incision well after bathing. * Do not shave directly over the incision until it is healed. * DO NOT IMMERSE THE INCISION IN A TUB/POOL/etc. UNTIL HEALED. Restrictions: * Do not drive for at least one week or if you are still taking any narcotic pain medication. * Do not lift anything heavier than a gallon of milk for one week after going home. Possible Complications: * Numbness - It is normal to have some numbness around the incision. Numbness can extend beyond the incision to areas of the neck, ear and face. The numbness is due to bruising of nerves during the surgery and will gradually improve over a period of months. * Hoarseness/Difficulty Speaking and Swallowing - The bruising of nerves in the neck can also cause a hoarse voice, difficulty speaking or swallowing. This may improve over time, HOWEVER, if it continues for more than a few days please contact our office ([phone]). * Excessive Swelling - There will be some swelling immediately after surgery which usually resolves within one week. If you notice that the swelling is getting worse, notify your surgeon ([phone]). * Drainage/Bleeding - If there is any drainage or bleeding, it should be a very small amount (less than a teaspoon per day). If you have excessive bleeding or drainage from the incision, call your surgeon ([phone]) right away. ACTIVATION OF EMERGENCY MEDICAL SYSTEM: Call 911, immediately, if you experience any of the following: Warning Signs and Symptoms of Stroke: * Sudden numbness or weakness of the face, arm or leg, especially on one side of the body * Sudden confusion, trouble speaking or understanding * Sudden trouble seeing in one or both eyes * Sudden trouble walking, dizziness, loss of balance or coordination * Sudden severe headache with no cause Do not delay calling 911 if you experience any warning signs or symptoms of a stroke. Delay in seeking medical attention may affect what treatments can be given to you. Risk Factors for Stroke: You can reduce your chances of stroke by working with your medical provider to adopt a healthy lifestyle. Some specific ways to lower your chance of stroke are: * If you are a smoker, now is the time to stop smoking cigarettes * If you are diabetic, improve the control of your blood sugars * Avoid excessive amounts of alcohol * Control high blood pressure * Lose weight if you are overweight * Be sure to lead an active lifestyle * Eat a healthy diet low in salt, cholesterol and fat You should know about other risk factors for stroke that you are unable to control. These include: * Age 55 years or older * Male gender * Certain racial groups: , or / * Family History of Stroke, Mini stroke or Heart Attack * Sickle Cell Disease You will be receiving a call from the Vascular Surgery Nurse after you are discharged. FOLLOW UP VISIT: It is important for you to keep your follow up appointments with your medical provider. Keep any scheduled doctor appointments. Call [phone] to schedule a follow up appointment if one not already scheduled. Pending Studies at Discharge: No Stand-Alone Forms: My [facility] [place], Smoking Cessation Medications and DC Order Prescriptions: Continued omeprazole 20 mg capsule,delayed release(DR/EC) 20 mg PO BID PRN (Reason: Acid Reflux) carvedilol 12.5 mg tablet 12.5 mg PO BID Qty: 180 3RF levothyroxine 150 mcg tablet 150 mcg PO QAM coenzyme Q10 [Co Q-10] 100 mg Capsule 100 mg PO QAM atorvastatin 20 mg tablet 20 mg PO HS magnesium oxide 200 mg magnesium tablet,chewable 400 mg PO QAM Rx Instructions: Two tabs twice daily for 5 days then two tabs once daily. aspirin 81 mg Tablet,Delayed Release (Dr/Ec) 81 mg PO QAM Qty: 30 0RF Rx Instructions: hold for surgery clopidogrel 75 mg tablet 75 mg PO QAM Rx Instructions: hold for surgery Discharge Orders: Discharge Order (Routine); Ordered 11/01/21 Ordered By: Pineda Corley Admission Data Admit Date/Time: 10/22/21 08:56 Attending Provider: Pineda Corley Admit Provider: Pineda Corley Primary Care Provider: Zaire Franks Other Providers: Tristen Doshi ; Major Lowery ; Jarret Miranda ; Prince Shetty ; Jose Benoit ; Nabor Fields ; Gayatri Charles ; Wilbert Beaulieu ; Tricia Dorado ; Reji Prince ; Edyta Allred ; Tena Wilson ; Jaime Narayan ; Kiran Bowen ; Major Escudero ; Mariano Scruggs ; Eryn Prince ; Meghan Gerard ; Eugenia Lucero ; Chloé Matta ; [facility] ; Naldo Weiner ; Melly Hadley ; Ronnie Ayers ; Justin Hinton ; Dillan Belle ; Reid Carranza ; Amira Ramos ; Kael Chawla ; Kasandra Hernandes ; Henrry Magana ; Marla Newton ; Angus Fernandez ; Melly Bentley ; May Díaz ; John Burgess ; Ronnie Schmidt ; Shabana Noyola ; Melyssa Reyes ; Brian Montes ; Pattie Mccain ; William Gannon ; Khanh Winters ; Ned Pa ; Julieth Fritz ; Camacho Montoya Other Interventions: Discharge Summary Assessment (RN) Last Done: 11/01/21 16:24
--- NOTE | 2021-11-14 07:40 | Coding Query ---
CODING QUERY To promote full compliance with coding requirements relating to patient care, provider participation is requested in all cases of qa tester uncertainty. Please assist us with the question(s) below: Coding Question(s): Pt adm for CEA. Prior history of malignancy of tongue and Radiation . 11/01 Neuro Consult : stroke related to recent surgery. Please check below the phrase that describes the stroke. Thanks for your help. Sonido Martinez [facility] Physician's Response(s): Stroke occurred during this admission, due to the CEA surgery Stroke was present on admission Unable to Clinicallly correlate if stroke occurred after surgery _x Other: Please document: ____CT report says no acute stroke, area in frontal lobe most likely artifact Principal Diagnosis: "that condition established after study, to be chiefly responsible for occasioning the admission of the patient to the hospital for care." Co-Existing Principal Diagnosis: "when two or more diagnoses equally meet the criteria for principal diagnosis as determined by the circumstances of admission, diagnostic work up, and/or therapy provided, and the Alphabetic Index, Tabular List, or another coding guideline does not provide sequencing direction, any one of the diagnoses may be sequenced first." "When the physician has documented what appears to be a current diagnosis in the body of the record, but has not included the diagnosis in the final diagnostic statement, the physician should be asked whether the diagnosis should be added." (Source Coding Clinic 2 QTR90. p3-4) D[place]ASD
--- NOTE | 2021-11-14 07:44 | Coding Query ---
CODING QUERY To promote full compliance with coding requirements relating to patient care, provider participation is requested in all cases of computer language coder uncertainty. Please assist us with the question(s) below: Coding Question(s): Patient postop with hoarseness. 11/01 Neuro note documented possible laryngeal nerve irritation/injury, noting if preceeding surgery due to radiation therapy. Please document, if known or suspected, the etiology of the hoarsess postsurgery. Thanks for your help. Sonido Martinez [facility] Physician's Response(s): Principal Diagnosis: "that condition established after study, to be chiefly responsible for occasioning the admission of the patient to the hospital for care." Co-Existing Principal Diagnosis: "when two or more diagnoses equally meet the criteria for principal diagnosis as determined by the circumstances of admission, diagnostic work up, and/or therapy provided, and the Alphabetic Index, Tabular List, or another coding guideline does not provide sequencing direction, any one of the diagnoses may be sequenced first." "When the physician has documented what appears to be a current diagnosis in the body of the record, but has not included the diagnosis in the final diagnostic statement, the physician should be asked whether the diagnosis should be added." (Source Coding Clinic 2 QTR90. p3-4) [facility]
== END 2021-11-01 17:35 | disposition home health service (06) | DRG 38 ==
LOC: ASU 07:22 → 1E 08:56 → 2W 10-24 13:40
DX: E03.9 Hypothyroidism, unspecified; I95.81 Postprocedural hypotension; E78.5 Hyperlipidemia, unspecified; N18.31 Chronic kidney disease, stage 3a; G81.94 Hemiplegia, unspecified affecting left nondominant side; M10.9 Gout, unspecified; Y83.8 Other surgical procedures as the cause of abnormal reaction of the patient, or of later complication, without mention of misadventure at the time of the procedure; H54.62 Unqualified visual loss, left eye, normal vision right eye; R47.89 Other speech disturbances; Z92.3 Personal history of irradiation; D61.818 Other pancytopenia; I65.22 Occlusion and stenosis of left carotid artery; Z79.890 Hormone replacement therapy; Z85.118 Personal history of other malignant neoplasm of bronchus and lung; Z88.1 Allergy status to other antibiotic agents; R47.01 Aphasia; K21.9 Gastro-esophageal reflux disease without esophagitis; Z79.82 Long term (current) use of aspirin; Z85.46 Personal history of malignant neoplasm of prostate; E11.22 Type 2 diabetes mellitus with diabetic chronic kidney disease; R13.19 Other dysphagia; I50.30 Unspecified diastolic (congestive) heart failure; Y92.230 Patient room in hospital as the place of occurrence of the external cause; Z85.810 Personal history of malignant neoplasm of tongue; G97.82 Other postprocedural complications and disorders of nervous system; Z95.810 Presence of automatic (implantable) cardiac defibrillator; Z79.02 Long term (current) use of antithrombotics/antiplatelets; I42.0 Dilated cardiomyopathy; I13.0 Hypertensive heart and chronic kidney disease with heart failure and stage 1 through stage 4 chronic kidney disease, or unspecified chronic kidney disease; Z87.891 Personal history of nicotine dependence